=== PATIENT | male | born 1965 | race Caucasian/White ===

== ENCOUNTER 2020-07-17 06:59 | Outpatient (REF) | payer OTHER, SELFPAY ==
[2020-07-17 08:52] LABS: Alanine Aminotransferase 37 U/L (0-40); Albumin Level 4.6 g/dL (3.5-5.0); Alkaline Phosphatase 58 U/L (39-117); Anion Gap 13 (12-20); Aspartate Amino Transferase 30 U/L (5-37); Bilirubin Total 0.9 mg/dL (0.0-1.0); Blood Urea Nitrogen 14 mg/dL (9-16); Calcium 9.7 mg/dL (8.4-10.2); Carbon Dioxide 27 mmol/L (22-29); Chloride 103 mmol/L (96-108); Cholesterol 191 mg/dL; Estimated Glomerular Filt Rate > 60; Glucose Fasting 105 mg/dL (60-99); HDL Cholesterol 53 mg/dL; LDL Cholesterol Calculated 91 mg/dl; Potassium 4.2 mmol/L (3.3-5.1); Sodium 139 mmol/L (135-145); Total Protein 7.2 g/dL (6.5-8.0); Triglycerides 238 mg/dL
== END 2020-07-17 07:00 | disposition home or self-care (01) ==
LOC: HO.LAB 06:59
PROVIDERS: PCP Family Medicine; Visit Provider Family Medicine
DX: E78.2 Mixed hyperlipidemia (principal)
CPT/HCPCS: 36415; 80053; 80061

== ENCOUNTER → 2020-10-25 07:34 | Outpatient (BNVA) | payer SELFPAY | PROVIDERS: PCP Family Medicine; Visit Provider Internal Medicine | DX: Z02.79 Encounter for issue of other medical certificate (principal) ==

== ENCOUNTER 2021-01-17 08:51 | Outpatient (REF) | payer OTHER, SELFPAY ==
[2021-01-17 12:26] LABS: Alanine Aminotransferase 30 U/L (0-40); Albumin Level 4.5 g/dL (3.5-5.0); Alkaline Phosphatase 57 U/L (39-117); Anion Gap 14 (12-20); Aspartate Amino Transferase 22 U/L (5-37); Bilirubin Total 0.8 mg/dL (0.0-1.0); Blood Urea Nitrogen 17 mg/dL (9-16); Calcium 9.5 mg/dL (8.4-10.2); Carbon Dioxide 25 mmol/L (22-29); Chloride 104 mmol/L (96-108); Cholesterol 172 mg/dL; Estimated Glomerular Filt Rate > 60; Glucose Fasting 115 mg/dL (60-99); HDL Cholesterol 46 mg/dL; LDL Cholesterol Calculated 98 mg/dl; Potassium 4.8 mmol/L (3.3-5.1); Sodium 138 mmol/L (135-145); Total Protein 7.1 g/dL (6.5-8.0); Triglycerides 142 mg/dL
== END 2021-01-17 08:52 | disposition home or self-care (01) ==
LOC: HO.HMGCLR 08:51
PROVIDERS: PCP Family Medicine; Visit Provider Family Medicine
DX: I10 Essential (primary) hypertension (principal)
CPT/HCPCS: 36415; 80053; 80061

== ENCOUNTER 2021-04-23 06:59 | Outpatient (REF) | payer OTHER, SELFPAY ==
[2021-04-23 12:04] LABS: Alanine Aminotransferase 37 U/L (0-40); Albumin Level 4.1 g/dL (3.5-5.0); Alkaline Phosphatase 60 U/L (39-117); Anion Gap 8 (12-20); Aspartate Amino Transferase 22 U/L (5-37); Bilirubin Total 0.5 mg/dL (0.0-1.0); Blood Urea Nitrogen 13 mg/dL (9-16); Calcium 9.2 mg/dL (8.4-10.2); Carbon Dioxide 29 mmol/L (22-29); Chloride 106 mmol/L (96-108); Cholesterol 157 mg/dL; Estimated Glomerular Filt Rate > 60; Glucose Random 115 mg/dL (60-115); HDL Cholesterol 41 mg/dL; LDL Cholesterol Calculated 82 mg/dl; Potassium 5.2 mmol/L (3.3-5.1); Sodium 138 mmol/L (135-145); Total Protein 6.7 g/dL (6.5-8.0); Triglycerides 171 mg/dL
== END 2021-04-23 07:00 | disposition home or self-care (01) ==
LOC: HO.HMGCLDS 06:59
PROVIDERS: Visit Provider Family Medicine
DX: I10 Essential (primary) hypertension (principal)
CPT/HCPCS: 36415; 80053; 80061

== ENCOUNTER 2021-06-20 07:00 | Outpatient (RCR) | payer OTHER, SELFPAY | END 2021-06-20 11:59 | disposition home or self-care (01) | LOC: HO.PTCHIC 07:00 | PROVIDERS: PCP Family Medicine; Visit Provider Physician Assistant | DX: M54.2 Cervicalgia (principal) | CPT/HCPCS: 97012; 97110; 97140; 97161 ==

== ENCOUNTER 2021-09-12 07:11 | Outpatient (REF) | payer OTHER, SELFPAY ==
[2021-09-12 11:08] LABS: MANUAL DIFF FLAG NO
[2021-09-12 11:16] LABS: Basophils Percent Auto 0.8 % (0-2); Eosinophils Absolute Auto 0.1 X10*3/uL (0.0-0.4); Eosinophils Percent Auto 1.6 % (0-4); Hematocrit 43.6 % (42.0-52.0); Hemoglobin 14.6 g/dl (14.0-18.0); Imm Gran Abs Auto 0.01 X10*3/uL (0.00-0.03); Imm Gran Pct Auto 0.2 % (0.0-0.4); Lymphocytes Absolute Auto 1.5 X10*3/uL (1.2-4.9); Lymphocytes Percent Auto 28.9 % (20-40); Mean Corpuscular HGB Conc 33.5 g/dl (31.0-36.0); Mean Corpuscular Hemoglobin 30.2 pg (27.0-33.0); Mean Corpuscular Volume 90.1 fL (80.0-98.0); Mean Platelet Volume 9.6 fL (9.4-12.4); Monocytes Absolute Auto 0.6 X10*3/uL (0.1-1.2); Monocytes Percent Auto 11.8 % (2-11); Neutrophils Absolute Auto 2.9 x10*3/uL (2.0-8.3); Neutrophils Percent Auto 56.7 % (45-73); Platelet Count 200 X10*3/uL (160-400); Red Blood Count 4.84 X10*6/uL (4.60-5.80); Red Cell Distribution Width 13.2 % (11.0-16.0); White Blood Count 5.2 X10*3/uL (4.8-10.8)
[2021-09-12 11:51] LABS: Alanine Aminotransferase 27 U/L (0-40); Albumin Level 4.4 g/dL (3.5-5.0); Alkaline Phosphatase 64 U/L (39-117); Anion Gap 13 (12-20); Aspartate Amino Transferase 22 U/L (5-37); Bilirubin Total 0.6 mg/dL (0.0-1.0); Blood Urea Nitrogen 20 mg/dL (9-16); Carbon Dioxide 25 mmol/L (22-29); Chloride 104 mmol/L (96-108); Cholesterol 192 mg/dL; Estimated Glomerular Filt Rate > 60; Glucose Random 144 mg/dL (60-115); HDL Cholesterol 50 mg/dL; LDL Cholesterol Calculated 116 mg/dl; Sodium 137 mmol/L (135-145); Triglycerides 132 mg/dL
[2021-09-12 12:00] LABS: Thyroid Stimulating Hormone 1.03 uIU/mL (0.32-4.0)
== END 2021-09-12 07:12 | disposition home or self-care (01) ==
LOC: HO.HMGCLDS 07:11
PROVIDERS: Visit Provider Family Medicine
DX: E78.2 Mixed hyperlipidemia (principal)
CPT/HCPCS: 36415; 80053; 80061; 84443; 85025

== ENCOUNTER → 2021-10-13 07:32 | Outpatient (BNVA) | payer SELFPAY | PROVIDERS: PCP Family Medicine; Visit Provider Internal Medicine | DX: Z02.79 Encounter for issue of other medical certificate (principal) ==

== ENCOUNTER 2021-11-07 07:26 | Day surgery (SDC) | payer OTHER, SELFPAY ==
--- NOTE | 2021-11-06 13:00 | HO.ANESPROP2 ---
Documented by User: Dia Looney NP 11/06/21 13:07 HPI - Anesthesia Eval Consult details Narrative: 56yo M for Upper Endoscopy Seen in Walk-In for sore throat 11/05/21. Home Covid negative. Rapid Strep negative. No fever. No cough. PMFSH Past Medical History Medical History BPH (benign prostatic hyperplasia) Elevated cholesterol GERD (gastroesophageal reflux disease) HTN (hypertension) Interstitial cystitis Surgical History Surgical History H/O rotator cuff surgery History of nasal surgery Hx of colonoscopy Hx of cystoscopy Hx of knee surgery Social History Social History Patient Tobacco Use Status: Former Tobacco user Are you DNR?: No Advance Directives: No Advance Directives Information Provided: Yes Recently lost weight without trying: No Nutrition Risks: No Nutritional Risk Meds Allergies Allergy/AdvReac Type Severity Reaction Status Date / Time CRUSTACEANS Allergy Intermediate SWELLING/DI Uncoded 11/05/21 08:18 FF.BREATHIN G Pt denies any drug allergies Allergy Unknown Unknown Uncoded 11/05/21 08:18 shrimp/crab/lobster Allergy Unknown facial Uncoded 11/05/21 08:18 swelling Home Medications Medication Instructions Recorded Confirmed Last Taken Type amlodipine 5 mg tablet 5 mg PO DAILY 11/05/21 11/07/21 History atenolol 50 mg tablet 50 mg PO DAILY 11/05/21 11/07/21 History atorvastatin 40 mg tablet 40 mg PO DAILY 11/05/21 Unknown History hwtdwqklfz-rqowwekcfzkoz-minputqy 1 tab PO Q4H PRN 11/05/21 Unknown History 50 mg-325 mg-40 mg tablet cyclobenzaprine 10 mg tablet 10 mg PO BEDTIME 11/05/21 Unknown History epinephrine 0.3 mg/0.3 mL IM allergies 11/05/21 Unknown History injection, auto-injector hydrocortisone valerate 0.2 % topical 11/05/21 Unknown History topical ointment lisinopril 5 mg tablet 5 mg PO BEDTIME 11/05/21 Unknown History omeprazole 20 mg capsule,delayed 20 mg PO BID 11/05/21 Unknown History release tamsulosin 0.4 mg capsule 0.4 mg PO DAILY 11/05/21 Unknown History Exam Exam Date and Time: November 06, 2021 1300 Pertinent Lab Results Pertinent Lab Results: Laboratory Tests 09/12/21 09/12/21 07:30 07:30 WBC 5.2 Hgb 14.6 Hct 43.6 Plt Count 200 Sodium 137 Potassium 5.0 Chloride 104 Carbon Dioxide 25 BUN 20 H D Creatinine 0.99 Assessment and Plan Assessment Anesthesia Assessment: Chart Reviewed Documented by User: Elizabeth Vargas MD 11/07/21 08:39 PMF Past Medical History Medical History BPH (benign prostatic hyperplasia) Elevated cholesterol GERD (gastroesophageal reflux disease) HTN (hypertension) Interstitial cystitis Surgical History Surgical History H/O rotator cuff surgery History of nasal surgery Hx of colonoscopy Hx of cystoscopy Hx of knee surgery History of Problems with Anesthesia: No Social History Social History Patient Tobacco Use Status: Former Tobacco user Are you DNR?: No Advance Directives: No Advance Directives Information Provided: Yes Recently lost weight without trying: No Nutrition Risks: No Nutritional Risk Meds Allergies Allergy/AdvReac Type Severity Reaction Status Date / Time CRUSTACEANS Allergy Intermediate SWELLING/DI Uncoded 11/05/21 08:18 FF.BREATHIN G Pt denies any drug allergies Allergy Unknown Unknown Uncoded 11/05/21 08:18 shrimp/crab/lobster Allergy Unknown facial Uncoded 11/05/21 08:18 swelling Home Medications Medication Instructions Recorded Confirmed Last Taken Type amlodipine 5 mg tablet 5 mg PO DAILY 11/05/21 11/07/21 History atenolol 50 mg tablet 50 mg PO DAILY 11/05/21 11/07/21 History atorvastatin 40 mg tablet 40 mg PO DAILY 11/05/21 Unknown History lewmhcggpx-jbtlyhwigwgoh-eztdnvug 1 tab PO Q4H PRN 11/05/21 Unknown History 50 mg-325 mg-40 mg tablet cyclobenzaprine 10 mg tablet 10 mg PO BEDTIME 11/05/21 Unknown History epinephrine 0.3 mg/0.3 mL IM allergies 11/05/21 Unknown History injection, auto-injector hydrocortisone valerate 0.2 % topical 11/05/21 Unknown History topical ointment lisinopril 5 mg tablet 5 mg PO BEDTIME 11/05/21 Unknown History omeprazole 20 mg capsule,delayed 20 mg PO BID 11/05/21 Unknown History release tamsulosin 0.4 mg capsule 0.4 mg PO DAILY 11/05/21 Unknown History Exam Airway Mallampati Class: III (Temporary crown right upper) TM Dist: >3cm Neck ROM: Full Loose/Missing/Broken Teeth: No Heart: RRR Lungs: CTA Assessment and Plan Assessment Anesthesia Assessment: Anesthesia Plan Discussed Final Anesthetic Review History of Problems with Anesthesia: No NPO: Yes ASA Class: II Final Preanesthetic Review: Meds/Allgs Chart Reviewed, Consent Obtained/Reviewed and Anes Risks/Benef Reviewed Patient Risk: Low Procedure Risk: Intermediate Anesthetic Plan Anesthetic Plan: MAC: Disposition: Standard PACU
[2021-11-07 06:45] VITALS: BMI 30.2
[2021-11-07 07:37] VITALS: BP 168/93; PULSE 63; RESP 18; TEMP 36.8; O2SAT 97
[2021-11-07] MEDS: Lactated Ringers 1,000 ML 100 ML IVCONT (08:02)
--- NOTE | 2021-11-07 09:01 | PM.OP ---
Brief Operative Note Date of Service: 11/07/21 Pre-op diagnosis: GERD Post-op diagnosis: other (Hiatal hernia) Procedure: EGD with biopsies Surgeon: Mayo Roche Anesthesia: MAC Was an Slot Shift Supervisor used for this Procedure?: No Estimated blood loss (mL): 2.0 Pathology: other (A. EG Junction at 38cm) Condition: stable Disposition: PACU
[2021-11-07 09:02] VITALS: BP 96/51; PULSE 63; RESP 10; TEMP 36.2; O2SAT 99
[2021-11-07 09:17] VITALS: BP 104/58; PULSE 74; RESP 16; TEMP 36.2; O2SAT 96
--- NOTE | 2021-11-07 21:58 | OP_ITS ---
SURGEON: Mayo Roche MD INDICATIONS: The patient presents for evaluation of chronic gastroesophageal reflux. Full consent has been obtained from him for this, including risks of bleeding and perforation. PREOPERATIVE DIAGNOSIS: POSTOPERATIVE DIAGNOSIS: Gastroesophageal reflux, small hiatal hernia. PROCEDURE PERFORMED: Esophagogastroduodenoscopy with biopsies. ESTIMATED BLOOD LOSS: COMPLICATIONS: ANESTHESIA: Monitored anesthesia care. ASSISTANTS: SPECIMENS: PREOPERATIVE DIAGNOSES: Gastroesophageal reflux. DESCRIPTION OF PROCEDURE: The patient was placed in the left lateral decubitus position. The Olympus video gastroscope was passed in the posterior oropharynx and upper esophagus under direct vision. The scope was passed slowly to the distal esophagus. The gastroesophageal junction appeared at 38 cm. There was a very minimal irregularity consistent with reflux but no evidence of any esophagitis nor any definitive evidence of Acevedo mucosa. There was a small hiatal hernia. The scope was advanced to the pylorus and the duodenum was cannulated to the descending portion. The duodenum including the bulb appeared normal without mass or ulceration. The scope was withdrawn back in the stomach. The gastric antrum and body appeared normal with good peristalsis. The scope was retroflexed visualizing the proximal stomach carefully, which appeared normal, without any sign of mass or ulceration. Scope was straightened and withdrawn back to the esophagus. Biopsies were obtained at the EG junction at 38 cm. Proximal to this, the esophageal mucosa appeared normal. The scope was withdrawn from the patient he tolerated the procedure well and was returned to the recovery area in stable condition. IMPRESSION: Small hiatal hernia, gastroesophageal reflux. PLAN: The results of the biopsies will be checked. At this point, I have advised him to continue his daily omeprazole as he reports that is working well for his reflux symptoms. He would otherwise see me on a p.r.n. basis but will be due for his next screening colonoscopy in 3 years. He will see me otherwise on a p.r.n. basis. This has been discussed with his . MD ERA Sparks/SADIQ / [id number]
== END 2021-11-07 09:55 | disposition home or self-care (01) ==
PROVIDERS: Visit Provider Internal Medicine
PROC: 0DJ08ZZ Inspection of Upper Intestinal Tract, Via Natural or Artificial Opening Endoscopic (ICD-10-PCS; CPT 43235; principal; 2021-11-07 08:30)
DX: K21.9 Gastro-esophageal reflux disease without esophagitis (principal); K44.9 Diaphragmatic hernia without obstruction or gangrene; I10 Essential (primary) hypertension; E78.5 Hyperlipidemia, unspecified; N40.0 Benign prostatic hyperplasia without lower urinary tract symptoms; N30.10 Interstitial cystitis (chronic) without hematuria; Z79.899 Other long term (current) drug therapy; Z87.891 Personal history of nicotine dependence
CPT/HCPCS: 43239; 88305; J3010

== ENCOUNTER 2021-11-21 07:54 | Outpatient (REF) | payer OTHER, SELFPAY ==
--- NOTE | 2021-11-28 08:56 | MHC.AU.ANO ---
Adult Audiological Evaluation Date of Visit: 11/21/21 Needle Loom Setter Used: Not Applicable Reason for Appointment: Gautam was referred for an audiologic evaluation due to increased hearing difficulties Does patient feel they have a hearing loss?: Yes If Yes, Which Ear?: Both Ears When Was Hearing Difficulty First Noticed?: Hearing change has been gradual for several years. Has hearing been tested previously?: Yes Previous Hearing Test Results: [facility] during employment. Results are not available for review. Hearing Handicap Inventory: HHIE SCORE: 16 Based on HHIE score, patient has: Mild to moderate perceived hearing handicap Ear History: Bothersome Tinnitus/Ringing/Noises in Ears: Both Ears Ear used on the phone: Left Ear Blocked/Full Sensation in Ear(s): Left ear greater than right History of occupational noise exposure?: Yes: Work related for over 40 years History: No Medical History: Medical History: Headache, High Blood Pressure, Migraines Medical History: Chronic pain and history of dizziness treated with Vestibular Rehabilitation Allergies: Shellfish Medication List: Atorvastatin, Amlodipine, Butalital-acetaminophen, Tamsulosin, Lisinopril, Omprazole, Atenolol Otoscopy: Right Ear: Unremarkable Left Ear: Unremarkable Tympanometry: Tympanometry performed due to: To assess integrity of the middle ear system Right Ear: Normal Middle Ear System (Type A) Left Ear: Normal Middle Ear System (Type A) Hearing Evaluation: Transducer(s) Used: Insert Earphones Bone Conduction Method: Conventional Audiometry Stimuli Used: Pure Tones Right Ear: Description of Hearing: Normal hearing thresholds 250-2000 Hz dropping to a moderate sensorineural hearing loss 3000 Hz, rising to a mild loss at 8000 Hz. A Speech Java Front End Web Developer Threshold of 10 dB HL obtained with 100% speech discrimination at 50 dB HL. Left Ear: Description of Hearing: Normal hearing thresholds 250-2000 Hz dropping to a moderate sensorineural hearing loss 3000 Hz, rising to a normal hearing threshold at 8000 Hz. A Speech Java Front End Web Developer Thresholds of 10 dB HL obtained with 92% speech understanding at 50 dB HL. Interpretation of Results: This moderate high frequency hearing loss occurs in the frequency range of many consonant sounds of speech which often will cause Gautam to have trouble distinguishing between similar sounding words. This difficulty increases when background noise is present or a speaker is at a distance/not facing him. This hearing loss is also likely related to Gautam's perception of tinnitus. The various theories of tinnitus and management strategies were discussed. Possible trial period with hearing aids was discusses; however, Gautam is not ready at this time to pursue amplification. Recommendations: Audiological re-evaluation in one year. Will send a reminder card. Hearing protection should be used when around loud noise. Diagnosis: Primary Diagnosis: H90.3 Bilateral Sensorineural Hearing Loss Secondary Diagnosis: H93.13 Tinnitus, Bilateral Services Performed: Comprehensive Audiological Evaluation (CPT 64491) Tympanometry (CPT 99852) Signature: Provider: Ron Ardon, CCC-A
== END 2021-11-21 07:55 | disposition home or self-care (01) ==
LOC: HO.SH 07:54
PROVIDERS: Visit Provider Family Medicine
DX: Z01.118 Encounter for examination of ears and hearing with other abnormal findings (principal); H90.3 Sensorineural hearing loss, bilateral; H93.13 Tinnitus, bilateral
CPT/HCPCS: 92557; 92567

== ENCOUNTER → 2021-12-01 14:00 | Outpatient (BNVA) | payer OTHER, SELFPAY | PROVIDERS: PCP Family Medicine; Visit Provider Orthopaedic Surgery | DX: M75.41 Impingement syndrome of right shoulder (principal) | CPT/HCPCS: 20610; J1100 ==

== ENCOUNTER 2021-12-29 11:43 | Outpatient (REF) | payer OTHER, SELFPAY ==
--- NOTE | ~2021-12-29 | XR_ITS ---
EXAMINATION: XR CHEST CLINICAL INFORMATION: Cough COMPARISON: None TECHNIQUE: 2 views of the chest were obtained. FINDINGS: Cardiac silhouette is normal in size. The lungs are well aerated. There is no lobar consolidation. No pleural effusion or pneumothorax. Mild degenerative changes of the spine. Postsurgical changes of both shoulders. XR/XR chest 2V IMPRESSION: No acute pulmonary pathology.
== END 2021-12-29 11:44 | disposition home or self-care (01) ==
LOC: HO.HMGCX 11:43
PROVIDERS: PCP Family Medicine; Visit Provider Internal Medicine
DX: R05.9 Cough, unspecified (principal)
CPT/HCPCS: 71046

== ENCOUNTER → 2022-02-13 14:54 | Outpatient (BNVA) | payer OTHER, SELFPAY | PROVIDERS: PCP Family Medicine; Visit Provider Nurse Practitioner Family | DX: N30.10 Interstitial cystitis (chronic) without hematuria (principal) ==

== ENCOUNTER 2022-03-03 08:27 | Outpatient (REF) | payer OTHER, SELFPAY ==
--- NOTE | ~2022-03-03 | US_ITS ---
EXAMINATION: US RETROPERITONEAL COMPLETE (RENAL) CLINICAL INFORMATION: Interstitial cystitis (chronic) without hematuria. COMPARISON: None TECHNIQUE: Real-time imaging of the kidneys and bladder. FINDINGS: RIGHT KIDNEY: 10.8 x 5.1 x 5.8 cm (SAG x AP x TRV). The kidney is normal in size, contour, and echogenicity. Renal cortical thickness is normal. No calculi or focal parenchymal lesions. No hydronephrosis. LEFT KIDNEY: 10.6 x 5.6 x 6.6 cm (SAG x AP x TRV). The kidney is normal in size, contour, and echogenicity. Renal cortical thickness is normal. No calculi or focal parenchymal lesions. No hydronephrosis. BLADDER: Well distended and normal. Bilateral ureteral jets are demonstrated. Prevoid bladder volume is 413 mL. Postvoid bladder volume is 45.6 mL. ADDITIONAL FINDINGS: The prostate is mildly enlarged measuring 39.3 mL volume. US/US retroperitoneal comp IMPRESSION: Normal renal ultrasound. Small postvoid bladder volume measuring 45.6 mL. Prostate volume is 39.3 mL.
[2022-03-03 12:50] LABS: Cholesterol 179 mg/dL; HDL Cholesterol 48 mg/dL; LDL Cholesterol Calculated 105 mg/dl; Triglycerides 134 mg/dL
[2022-03-03 12:51] LABS: Thyroid Stimulating Hormone 1.12 uIU/mL (0.32-4.0)
[2022-03-03 13:21] LABS: PSA,Total (Free>4and<10) 8.83 ng/mL (0.00-4.00)
[2022-03-05 09:13] LABS: Free Prostate Spec Ag 1.5 ng/mL; Percent Free Prostate Spec Ag 18 % (calc) (>25); Prostate Specific Ag Total 8.2 ng/mL (< OR = 4.0)
== END 2022-03-03 08:28 | disposition home or self-care (01) ==
LOC: HO.HMGCX 08:27
PROVIDERS: PCP Family Medicine; Visit Provider Nurse Practitioner Family
DX: N30.10 Interstitial cystitis (chronic) without hematuria (principal); N40.1 Benign prostatic hyperplasia with lower urinary tract symptoms; E78.2 Mixed hyperlipidemia; Z12.5 Encounter for screening for malignant neoplasm of prostate
CPT/HCPCS: 36415; 76770; 80061; 84153; 84154; 84443

== ENCOUNTER → 2022-03-27 08:47 | Outpatient (BNVA) | payer OTHER, SELFPAY | PROVIDERS: PCP Family Medicine; Visit Provider Nurse Practitioner Family | DX: R97.20 Elevated prostate specific antigen [PSA] (principal); R35.1 Nocturia | CPT/HCPCS: 51798 ==

== ENCOUNTER 2022-03-30 06:48 | Outpatient (REF) | payer OTHER, SELFPAY ==
[2022-03-30 12:33] LABS: Prostate Specific Antigen 7.06 ng/mL (<0.05-4.0)
== END 2022-03-30 06:49 | disposition home or self-care (01) ==
LOC: HO.HMGCLDS 06:48
PROVIDERS: Visit Provider Nurse Practitioner Family
DX: Z12.5 Encounter for screening for malignant neoplasm of prostate (principal); R97.20 Elevated prostate specific antigen [PSA]
CPT/HCPCS: 36415; 84153

== ENCOUNTER → 2022-04-02 09:44 | Outpatient (BNVA) | payer OTHER, SELFPAY | PROVIDERS: PCP Family Medicine; Visit Provider Nurse Practitioner Family | DX: Z13.89 Encounter for screening for other disorder (principal) ==

== ENCOUNTER 2022-05-14 07:32 | Outpatient (REF) | payer OTHER, SELFPAY ==
[2022-05-14 07:47] VITALS: BP 141/91; PULSE 54; RESP 16; TEMP 36.4; O2SAT 99; BMI 28.7
--- NOTE | 2022-05-14 08:45 | W.PM.OPN ---
Operative Note Operative Note Date of Service: 05/14/22 Narrative: Preoperative diagnosis: Elevated PSA Postoperative diagnosis: Elevated PSA - 8.2 18% Procedure: 1. transrectal ultrasound measurement of prostate 2. transrectal ultrasound-guided pudendal nerve block 3. transrectal ultrasound-guided prostate biopsy 12 core Surgeon: Dr. Mario Enriquez Anesthetic: Local Indications for procedure: Elevated PSA Procedure: After informed consent was verified, the patient was brought into the procedure area and lay left-hand side down on the table. Patient identity confirmed. Perioperative antibiotics confirmed. Safety pause time out performed. DARÍO performed to dilate rectal sphincter Iodine 10cc with Gel was placed per rectum Ultrasound probe was placed per rectum The prostate was measured in 3 dimensions Total volume equals 35 gm No cystic structures were noted No calcifications were noted at the surgical margin The prostate was otherwise homogeneous in nature An ultrasound-guided pudendal nerve block was performed using 10 cc of 1% lidocaine. 8 cc was placed at the base and 2 cc of the apex. A 12 core biopsy was performed with 6 cores each side. Two cores were taken at the apex, mid and base. Cores were spaced between lateral and medial. He tolerated the procedure well. Was able to ambulate to bathroom after 5 minutes. Printed instructions regarding antibiotic use and common side effects such as low-grade temperature, potential infection and bleeding were given Pathology: 12 core prostate biopsy.
[2022-05-14 08:47] VITALS: BP 155/96; PULSE 59; RESP 16; O2SAT 97
== END 2022-05-14 07:33 | disposition home or self-care (01) ==
LOC: HO.MS 07:32
PROVIDERS: PCP Family Medicine; Visit Provider Urology
PROC: (CPT 55700; principal; 2022-05-14 08:00)
DX: D07.5 Carcinoma in situ of prostate (principal); R97.20 Elevated prostate specific antigen [PSA]
CPT/HCPCS: 55700; 76942; 88305; 88344

== ENCOUNTER → 2022-05-21 09:40 | Outpatient (BNVA) | payer OTHER, SELFPAY | PROVIDERS: PCP Family Medicine; Visit Provider Urology | DX: Z13.89 Encounter for screening for other disorder (principal) ==

== ENCOUNTER → 2022-06-16 13:22 | Outpatient (BNVA) | payer OTHER, SELFPAY | PROVIDERS: PCP Family Medicine; Visit Provider Urology | DX: Z13.89 Encounter for screening for other disorder (principal) ==

== ENCOUNTER → 2022-10-05 14:29 | Outpatient (BNVA) | payer SELFPAY | PROVIDERS: PCP Family Medicine; Visit Provider Internal Medicine | DX: Z02.79 Encounter for issue of other medical certificate (principal) ==

== ENCOUNTER 2022-10-20 09:45 | Outpatient (AMB) | payer OTHER, SELFPAY ==
--- NOTE | 2022-10-20 09:55 | MHC.OFFVIS ---
Intake Intake Visit Reasons: 6w/post op follow up Intake Note: Patient is present for Follow Up Urology Med: None (Patient is no longer on Finasteride, Bicalutamide) Antibiotic Allergy: None Blood Thinner: None Pharmacy: [facility] PVR:0 Allergies CRUSTACEANS Allergy (Intermediate, Uncoded 10/20/22 09:59) SWELLING/DIFF.BREATHING shrimp/crab/lobster Allergy (Unknown, Uncoded 10/20/22 09:59) facial swelling HPI HPI Comments History of Present Illness Details Gautam is a pleasant male. He is a patient of Dr. Osorio. He seen for the following urologic conditions - elevated PSA - prostate cancer Six weeks postprocedure Continence returning Happy with current process Genetics performed showing no abnormality PSA today and 6 weeks Will be on 3 month surveillance for 2 years Prostate cancer -grade group 5, high-volume 05/[address] Enriquez 05/07 for PSA 7.1 with free PSA 18% Initial therapy robotic prostatectomy Dr Cow[facility] 09/06 - genetics negative Clinical T1c, TRUS prostate size 35 g Histologic type: Adenocarcinoma, acinar type Manuela score: 9 (4+5) (left base lateral, left base medial, left mid lateral,left mid medial, left apex lateral, and left apex medial), 7 (3+4) (right base medial), 6 (3+3) (right base lateral) Tumor quantitation: Number cores positive: 8 Total number of cores: 15 - % of tissue involved: 44 % - 640/1600 Periprostatic fat inv.: Not identified Seminal vesicle inv.: Not identified Perineural inv.: Present Lymphovascular invasion: Not identified Staging - 06/07 [facility] PET-CT - isolated left side prostate activity - 06/07 MRI - multiple prostate lesions PiRADs 5 with apparent SHERRY to involve neurovascular bundles, no evidence for seminal vesicle involvement PFSH Medical History BPH (benign prostatic hyperplasia) BPH loc w urin obs/LUTS Elevated cholesterol GERD (gastroesophageal reflux disease) HTN (hypertension) Interstitial cystitis Interstitial cystitis Surgical History H/O rotator cuff surgery History of nasal surgery Hx of colonoscopy Hx of cystoscopy Hx of knee surgery Social History Patient Tobacco Use Status: Former Tobacco user Current occupational status: employed 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 Review of Systems Const Denies chills and Denies fever(s) Card Reports no additional complaints and Denies syncope Resp Denies cough GI Denies abdominal pain and Denies heartburn Reports as per HPI and Denies change in libido Neuro Denies syncope Psych Denies change in libido Endo Denies change in libido Physical Exam Const General: cooperative, healthy appearing, comfortable and no acute distress Orientation/consciousness: patient oriented x3 HEENT Face and sinus: Yes normal facial exam Mouth: moist mucous membranes Neck Neck: Yes normal visual inspection, Yes full ROM and Yes trachea midline Chest Chest palpation & inspection: normal inspection of the chest Resp Effort & Inspection: normal respiratory effort, able to speak in complete sentences and no respiratory distress GI Inspection: Yes normal to inspection Back/Spine/Pelvis Cervical Spine: normal cervical lordosis Thoracic/Lumbar Spine: thoracic and lumbar spine normal to inspection Skin General skin exam: no rashes or lesions noted Neuro General: patient oriented x3, gait normal, tone normal and moves all extremities Extrem General: Yes normal to inspection and Yes capillary refill normal Office Procedures Post Void Residual Post Residual Void Post Void Residual (PVR): 0 52243-Enrb Void Residual by ultrasound Results AMB Urinalysis, Automated UA Leukoctes 0 Teo/uL Last Edit by HEATHER Cerda on 10/20/22 10:05 UA Nitrite Negative Last Edit by HEATHER Cerda on 10/20/22 10:05 UA Urobilinogen 0.2 mg/dL Last Edit by HEATHER Cerda on 10/20/22 10:05 UA Protein 0 mg/dL Last Edit by HEATHER Cerda on 10/20/22 10:05 UA pH 5.5 Last Edit by HEATHER Cerda on 10/20/22 10:05 UA Blood 0 Meek/uL Last Edit by HEATHER Cerda on 10/20/22 10:05 UA Specific [place] 1.015 Last Edit by HEATHER Cerda on 10/20/22 10:05 UA Ketone Negative Last Edit by HEATHER Cerda on 10/20/22 10:05 UA Bilirubin 0 mg/dL Last Edit by HEATHER Cerda on 10/20/22 10:05 UA Glucose 0 mg/dL Last Edit by Cheri Eckert, HEATHER on 10/20/22 10:05 Results Reviewed Results Reviewed: Laboratory Last Values Urine pH (Auto) 5.5 10/20/22 10:00 Specific [place] (Auto) 1.015 10/20/22 10:00 Urine Protein (Auto) 0 mg/dL 10/20/22 10:00 Glucose (UA)(Auto) 0 mg/dL 10/20/22 10:00 Urine Ketones (Auto) Negative 10/20/22 10:00 Urine Blood (Auto) 0 Meek/uL 10/20/22 10:00 Urine Nitrite (Auto) Negative 10/20/22 10:00 Urine Bilirubin (Auto) 0 mg/dL 10/20/22 10:00 Urine Urobilinogen (Auto) 0.2 mg/dL 10/20/22 10:00 Leukocyte Esterase (Auto) 0 Teo/uL 10/20/22 10:00 Assessment & Plan Assessment & Plan (1) Prostate cancer: Comment: 05/07 high-grade, high-volume Code(s): C61 - Malignant neoplasm of prostate Plan PSA today and three-month follow-up Orders: Orders AMB Urinalysis Automated Today Z13.9 - Encounter for screening, unspecified AMB Post Void Residual by ultrasound Today N40.1 - Benign prostatic hyperplasia with lower urinary tract symptoms Prostate Specific Antigen Today C61 - Malignant neoplasm of prostate Prostate Specific Antigen 3 Months C61 - Malignant neoplasm of prostate Patient Instructions: Imaging studies, laboratory and physical exam results were discussed and reviewed in detail. No major barriers to patient understanding were identified. An opportunity to ask questions regarding the treatment plan was provided. All questions were answered. The patient expressed understanding and agreement with the above treatment plan. The patient is aware they should contact our office by phone for worsening of their current condition or the appearance of new urologic symptoms. Compliance is encouraged with any medications and followup testing that is ordered. It is a privilege to participate in the urologic care of your patient. If you have any questions or concerns regarding treatment for the above conditions, or other urologic issues, please do not hesitate to contact me. The office telephone contact is [phone]. This note is constructed using voice recognition software. While every effort has been made to ensure accuracy treating plant supervisor errors may have been included. Yours sincerely, Dr Mario Enriquez MD, [facility] - Urology Providers of Expert, Compassionate Care for the Genitourinary System Coding Level of Care Code Est Pt Level 3 (99798) Diagnoses Prostate cancer C61 CPT Codes Post Residual Void - PVR CPT Code: 24879-Ktxz Void Residual by ultrasound ([id number])
== END 2022-10-20 10:43 | disposition home or self-care (01) ==
PROVIDERS: PCP Family Medicine; Visit Provider Urology
DX: C61 Malignant neoplasm of prostate (principal); Z13.9 Encounter for screening, unspecified
CPT/HCPCS: 99213

== ENCOUNTER → 2022-10-20 09:45 | Outpatient (BNVA) | payer SELFPAY | PROVIDERS: PCP Family Medicine; Visit Provider Urology | DX: C61 Malignant neoplasm of prostate (principal); N40.1 Benign prostatic hyperplasia with lower urinary tract symptoms; N13.8 Other obstructive and reflux uropathy | CPT/HCPCS: 51798; 81003 ==

== ENCOUNTER 2022-10-23 07:19 | Outpatient (REF) | payer OTHER, SELFPAY ==
[2022-10-23 12:09] LABS: Prostate Specific Antigen < 0.10 ng/mL (<0.05-4.0)
== END 2022-10-23 07:20 | disposition home or self-care (01) ==
LOC: HO.HMGCLDS 07:19
PROVIDERS: PCP Family Medicine; Visit Provider Urology
DX: Z12.5 Encounter for screening for malignant neoplasm of prostate (principal); C61 Malignant neoplasm of prostate
CPT/HCPCS: 36415; 84153

== ENCOUNTER 2022-12-29 07:16 | Outpatient (REF) | payer OTHER, SELFPAY ==
[2022-12-29 12:05] LABS: Alanine Aminotransferase 30 U/L (0-40); Albumin Level 4.3 g/dL (3.5-5.0); Alkaline Phosphatase 61 U/L (39-117); Anion Gap 11 (12-20); Aspartate Amino Transferase 25 U/L (5-37); Bilirubin Total 0.6 mg/dL (0.0-1.0); Blood Urea Nitrogen 13 mg/dL (9-16); Calcium 9.5 mg/dL (8.4-10.2); Carbon Dioxide 28 mmol/L (22-29); Chloride 102 mmol/L (96-108); Cholesterol 198 mg/dL (<200); Estimated Glomerular Filt Rate > 60; Glucose Random 123 mg/dL (60-115); HDL Cholesterol 47 mg/dL (>40); LDL Cholesterol Calculated 94 mg/dL (<100); Potassium 4.1 mmol/L (3.3-5.1); Sodium 137 mmol/L (135-145); Total Protein 7.1 g/dL (6.5-8.0); Triglycerides 287 mg/dL (<150)
== END 2022-12-29 07:17 | disposition home or self-care (01) ==
LOC: HO.HMGCLDS 07:16
PROVIDERS: PCP Family Medicine; Visit Provider Family Medicine
DX: E78.2 Mixed hyperlipidemia (principal)
CPT/HCPCS: 36415; 80053; 80061

== ENCOUNTER 2023-01-11 12:48 | Outpatient (AMB) | payer OTHER, SELFPAY ==
--- NOTE | 2023-01-11 12:51 | MHC.OFFVIS ---
Intake Intake Visit Reasons: New Prob - Bilateral Hand Numbness & Tingling Intake Note: Gautam is a 57 year old right hand dominant male who presents today for a evaluation of bilateral numbness and tingling. Patient reports a tingling sensation in his thumb,2nd, 3rd and 4th digits of left hand and his 5th and 4th digit in his right hand. He states his left hand is the worse and difficulty sleeping at night. Hx of neck problems/injections, stating arthritis in his neck. He has had an EMG done years ago. Allergies CRUSTACEANS Allergy (Intermediate, Uncoded 01/11/23 12:58) SWELLING/DIFF.BREATHING shrimp/crab/lobster Allergy (Unknown, Uncoded 01/11/23 12:58) facial swelling HPI New Prob - Bilateral Hand Numbness & Tingling HPI Details 57-year-old right hand dominant male who presents in the office today for an evaluation of numbness and tingling in the bilateral hands. He reports having a tingling sensation in the 1st, 2nd, 3rd, and 4th digits on the left hand and the 4th and 5th digits on the right hand. He reports the left hand is worse then the right and causes him greater difficulty. He states he had an EMG years ago. He states he has difficulty sleeping at night. Patient reports a history of neck problems with injections, with arthritis. 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 Review of Systems Const All systems reviewed & are unremarkable except as noted in HPI and below Physical Exam Const General: cooperative and no acute distress Orientation/consciousness: patient oriented x3 Resp Effort & Inspection: normal respiratory effort and able to speak in complete sentences Cardio Peripheral pulses: Peripheral pulses 2+ throughout Skin General skin exam: no rashes or lesions noted Neuro General: patient oriented x3 Extrem Other: Bilateral hands: Normal to inspection. No ecchymosis, erythema, or edema. Able to perform full finger flexion, extension, abduction, adduction, finger cross, okay sign, and thumbs up without deficit. Able to make a closed fist. Positive Tinel?s at the carpal and cubital tunnel. Capillary refill is brisk. Radial pulse intact. Left is worse than the right for symptoms. Assessment & Plan Assessment & Plan (1) Numbness and tingling of left upper extremity: Code(s): R20.0 - Anesthesia of skin; R20.2 - Paresthesia of skin (2) Numbness and tingling of right upper extremity: Code(s): R20.0 - Anesthesia of skin; R20.2 - Paresthesia of skin (3) Right carpal tunnel syndrome: Code(s): G56.01 - Carpal tunnel syndrome, right upper limb (4) Left carpal tunnel syndrome: Code(s): G56.02 - Carpal tunnel syndrome, left upper limb Plan Mr. Pearson is a 57-year-old right hand dominant male who presents in the office today for an evaluation of numbness and tingling in the bilateral hands. He reports having a tingling sensation in the 1st, 2nd, 3rd, and 4th digits on the left hand and the 4th and 5th digits on the right hand. He reports the left hand is worse then the right and causes him greater difficulty. He states he had an EMG years ago. He states he has difficulty sleeping at night. Patient reports a history of neck problems with injections, with arthritis. 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 The patient will be referred for an EMG with Dr. Cruz to further evaluate the bilateral hands. Follow up will be after the EMG is obtained with either Dr. Cruz or Dr. London depending on where nerve compression is located, or sooner if needed. Orders: Orders NE electromyogram (EMG) Today G56.01 - Carpal tunnel syndrome, right upper limb, G56.02 - Carpal tunnel syndrome, left upper limb, R20.0 - Anesthesia of skin, R20.2 - Paresthesia of skin Patient Instructions: Scribed for Aishwarya Mccallum PA-C by Iva Rodeen, medical officer psychiatry, on 01/11/2023 at 12:50 pm, EST. Coding Level of Care Code New Pt Level 4 (31344) Diagnoses Numbness and tingling of left upper extremity R20.0; R20.2 Numbness and tingling of right upper extremity R20.0; R20.2 Right carpal tunnel syndrome G56.01 Left carpal tunnel syndrome G56.02
== END 2023-01-11 13:29 | disposition home or self-care (01) ==
PROVIDERS: PCP Family Medicine; Visit Provider Physician Assistant
DX: R20.0 Anesthesia of skin (principal); R20.2 Paresthesia of skin; G56.03 Carpal tunnel syndrome, bilateral upper limbs
CPT/HCPCS: 99203

== ENCOUNTER → 2023-01-11 12:48 | Outpatient (BNVA) | payer OTHER, SELFPAY | PROVIDERS: PCP Family Medicine; Visit Provider Physician Assistant ==

== ENCOUNTER 2023-01-20 07:32 | Outpatient (REF) | payer OTHER, SELFPAY ==
[2023-01-20 12:06] LABS: Prostate Specific Antigen < 0.10 ng/mL (<0.05-4.0)
== END 2023-01-20 07:33 | disposition home or self-care (01) ==
LOC: HO.HMGCLDS 07:32
PROVIDERS: PCP Family Medicine; Visit Provider Urology
DX: Z12.5 Encounter for screening for malignant neoplasm of prostate (principal); C61 Malignant neoplasm of prostate
CPT/HCPCS: 36415; 84153

== ENCOUNTER 2023-01-27 08:37 | Outpatient (AMB) | payer OTHER, SELFPAY ==
--- NOTE | 2023-01-27 08:38 | A.OFFVIS_ITS ---
Intake Intake Visit Reasons: 3M PSA(set) Intake Note: Patient is Present for Telephone Follow Up PSA Urology Med: Patient is currently out of Tadalafil Antibiotic Allergy: None Blood Thinner: None Patient states he will like to discuss other options for Medications similar to Tadalafil Allergies CRUSTACEANS Allergy (Intermediate, Uncoded 01/27/23 08:40) SWELLING/DIFF.BREATHING shrimp/crab/lobster Allergy (Unknown, Uncoded 01/27/23 08:40) facial swelling Medication List - Last Reconciled 01/27/23 by Mario Enriquez MD amlodipine 5 mg PO DAILY atenolol 50 mg PO DAILY atorvastatin 40 mg PO DAILY [id number]-oiemsbkdnnzob-isvd 50-325-40 mg 1 tab PO Q4H PRN cyclobenzaprine 10 mg PO BEDTIME epinephrine IM hydrocortisone valerate 0.2% topical lisinopril 10 mg PO DAILY omeprazole 20 mg PO BID tadalafil (Cialis) 5 mg PO DAILY 90 days HPI HPI Comments History of Present Illness Details Gautam is a pleasant male. He is a patient of Dr. Higuera. He seen for the following urologic conditions - elevated PSA - prostate cancer Telemedicine Evaluation 15 min Consultation Blowtorch Jose M Video attempted Happy with confidence this point in time Occasional leakage with activity Uses depends which he finds helps with confidence Has started to have some erectile activity. Continues to combination daily Cialis and vacuum pump Discussed injection therapy and use of pump with constriction ring Emphasized that use of Cialis helps minimize penile scarring during the post procedure at time frame Continue check PSA every 3 months PSA - 02/06 <0.1 Prostate cancer -grade group 5, high-volume 05/07 - [facility] 09/[address] Enriquez 05/07 for PSA 7.1 with free PSA 18% Initial therapy robotic prostatectomy Dr Cowart [facility] 09/06 - genetics negative Clinical T1c, TRUS prostate size 35 g Histologic type: Adenocarcinoma, acinar type Manuela score: 9 (4+5) (left base lateral, left base medial, left mid lateral,left mid medial, left apex lateral, and left apex medial), 7 (3+4) (right base medial), 6 (3+3) (right base lateral) Tumor quantitation: Number cores positive: 8 Total number of cores: 15 - % of tissue involved: 44 % - 640/1600 Periprostatic fat inv.: Not identified Seminal vesicle inv.: Not identified Perineural inv.: Present Lymphovascular invasion: Not identified Staging - 06/07 [facility] PET-CT - isolated left side prostate activity - 06/07 MRI - multiple prostate lesions P iRADs 5 with apparent SHERRY to involve neurovascular bundles, no evidence for seminal vesicle involvement PFSH Medical History Interstitial cystitis BPH loc w urin obs/LUTS Interstitial cystitis BPH (benign prostatic hyperplasia) GERD (gastroesophageal reflux disease) Elevated cholesterol HTN (hypertension) Surgical History Hx of knee surgery History of nasal surgery H/O rotator cuff surgery Hx of cystoscopy Hx of colonoscopy Social History Patient Tobacco Use Status: Former Tobacco user Current occupational status: employed 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 Review of Systems Const All systems reviewed & are unremarkable except as noted in HPI and below Reports no additional complaints Resp Reports no additional complaints GI Reports no additional complaints Reports as per HPI Musc Reports no additional complaints Physical Exam Telemedicine evaluation Appropriate responses Regular breathing rate and rhythm HEENT Head: Yes normal to inspection Ears: hearing grossly normal bilaterally Eyes General: appearance normal, both eyes and all related structures Neck Neck: Yes normal visual inspection Chest Chest palpation & inspection: normal inspection of the chest Resp Effort & Inspection: normal respiratory effort and able to speak in complete s entences Assessment & Plan Assessment & Plan (1) Prostate cancer: Comment: 05/07 high-grade, high-volume Code(s): C61 - Malignant neoplasm of prostate Plan Three month follow-up PSA office Orders: Orders Prostate Specific Antigen 3 Months C61 - Malignant neoplasm of prostate Medications: Refilled tadalafil (Cialis) 5 mg PO DAILY 90 days 90 tabs 1RF Patient Instructions: Imaging studies, laboratory and physical exam results were discussed and reviewed in detail. No major barriers to patient understanding were identified. An opportunity to ask questions regarding the treatment plan was provided. All questions were answered. The patient expressed understanding and agreement with the above treatment plan. The patient is aware they should contact our office by phone for worsening of their current condition or the appearance of new urologic symptoms. Compliance is encouraged with any medications and followup testing that is ordered. It is a privilege to participate in the urologic care of your patient. If you have any questions or concerns regarding treatment for the above conditions, or other urologic issues, please do not hesitate to contact me. The office telephone contact is [phone]. This note is constructed using voice recognition software. While every effort has been made to ensure accuracy shoeblack errors may have been included. Yours sincerely, Dr Mario Enriquez MD, [facility] - Urology Providers of Expert, Compassionate Care for the Genitourinary System Telehealth Telehealth Location of provider rendering services: practice address Location of patient: address on file Patient Identification confirmed using: Name, : Yes Telehealth method: voice only Patient verbally consented to treatment: Yes Patient verbally consented to billing insurance company: Yes Patient informed of any privacy concerns related to visit: Yes Coding Level of Care Code Tele Est Pt Level 3 (06592) Diagnoses Prostate cancer C61
== END 2023-01-27 10:03 | disposition home or self-care (01) ==
LOC: HO.HUSH 08:37
PROVIDERS: PCP Family Medicine; Visit Provider Urology
DX: C61 Malignant neoplasm of prostate (principal)
CPT/HCPCS: 99442

== ENCOUNTER → 2023-01-27 08:37 | Outpatient (BNVA) | payer OTHER, SELFPAY | PROVIDERS: PCP Family Medicine; Visit Provider Urology ==

== ENCOUNTER 2023-02-02 10:01 | Outpatient (REF) | payer OTHER, SELFPAY | END 2023-02-02 10:02 | disposition home or self-care (01) | LOC: HO.HOSX 10:01 | PROVIDERS: Visit Provider Physician Assistant | DX: M19.071 Primary osteoarthritis, right ankle and foot (principal) | CPT/HCPCS: 73610 ==

== ENCOUNTER 2023-02-02 10:48 | Outpatient (AMB) | payer OTHER, SELFPAY ==
--- NOTE | 2023-02-02 10:55 | A.OFFVIS_ITS ---
Intake Vital Signs 02/02/23 10:56 Height 5 ft 10 in Weight 200 lb BMI 28.7 Intake Visit Reasons: Newprob-Right ankle eval Intake Note: Gautam is a 58 year old male who presents today for a evaluation of his right ankle pain. Patient reports off and on pain for many years. He states that his has a history of twisting his ankle easily. No previous treatment. Allergies CRUSTACEANS Allergy (Intermediate, Uncoded 01/27/23 08:40) SWELLING/DIFF.BREATHING shrimp/crab/lobster Allergy (Unknown, Uncoded 01/27/23 08:40) facial swelling HPI Newprob-Right ankle eval HPI Details 58-year-old right hand dominant male who presents in the office today for an evaluation of right ankle pain. The patient reports intermittent pain for june years. He states he has a history of twisting his ankle easily. He denies any prior treatment. 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 Review of Systems Const All systems reviewed & are unremarkable except as noted in HPI and below Physical Exam Vital Signs: BMI result Body Mass Index 28.7 Const General: cooperative, healthy appearing and no acute distress Resp Effort & Inspection: normal respiratory effort and able to speak in complete sentences Cardio Rate: regular rate Peripheral pulses: Peripheral pulses 2+ throughout GI Palpation (GI): Soft to palpation Skin Lesions: no lesions Rashes: no rashes Extrem Other: Right ankle: Normal to inspection. No ecchymosis, erythema, or edema. Full ROM in all planes. NVI. Assessment & Plan Assessment & Plan (1) Osteoarthritis of right ankle: Code(s): M19.071 - Primary osteoarthritis, right ankle and foot Qualifiers: Osteoarthritis type: unspecified Qualified Code(s): M19.071 - Primary osteoarthritis, right ankle and foot Plan Mr. Pearson is a 58-year-old right hand dominant male who presents in the office today for an evaluation of right ankle pain. The patient reports intermittent pain for june years. He states he has a history of twisting his ankle easily. He denies any prior treatment. I discussed with the patient that this is an arthritis flare up, which he understands, and is consistent with his symptoms. He reports intermittent pain depending on activities. I recommend for arthritis management with Tylenol, ib uprofen, ice, rest, elevation and activity modification. We discuss him being a canidate for cortisone injections. Should he wish to move forward with this he will call the office. Follow up will be PRN, or sooner if needed. X-rays of the right ankle which were obtained while in the office today and were reviewed by me, Aishwarya Mccallum PA-C, revealed significant right ankle osteoarthritis. Orders: Orders XR ankle RT min 3V Today M25.579 - Pain in unspecified ankle and joints of unspecified foot Patient Instructions: Scribed for Aishwarya Mccallum PA-C by Iva Rand director of medical review, on 02/02/2023 at 11:03 am, EST. Coding Level of Care Code Est Pt Level 3 (69916) Diagnoses Osteoarthritis of right ankle, unspecified osteoarthritis type M19.071 Osteoarthritis type: unspecified
[2023-02-02 10:56] VITALS: BMI 28.7
== END 2023-02-02 11:20 | disposition home or self-care (01) ==
PROVIDERS: PCP Family Medicine; Visit Provider Physician Assistant
DX: M19.071 Primary osteoarthritis, right ankle and foot (principal)
CPT/HCPCS: 99213

== ENCOUNTER 2023-02-04 08:39 | Outpatient (REF) | payer OTHER, SELFPAY ==
--- NOTE | 2023-02-04 08:42 | EMG_ITS ---
Bilateral median and ulnar motor and sensory studies were performed. Bilateral radial sensory studies were performed and paraspinal muscles were tested with a needle. IMPRESSION: 1. 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 2. Mild bilateral ulnar neuropathy across cubital tunnel. MD HEVER Jarvis/SADIQ / [phone]
== END 2023-02-04 08:40 | disposition home or self-care (01) ==
LOC: HO.NEURO 08:39
PROVIDERS: PCP Family Medicine; Visit Provider Physician Assistant
DX: G56.03 Carpal tunnel syndrome, bilateral upper limbs (principal); R20.0 Anesthesia of skin; R20.2 Paresthesia of skin
CPT/HCPCS: 95886; 95913

== ENCOUNTER 2023-03-01 12:42 | Outpatient (REF) | payer OTHER, SELFPAY ==
--- NOTE | ~2023-03-01 | XR_ITS ---
EXAMINATION: XR WRIST, LEFT CLINICAL INFORMATION: Pain in unspecified wrist COMPARISON: None available. TECHNIQUE: PA, lateral, and oblique views of the left wrist. FINDINGS: There is severe degenerative change of the first carpometacarpal joint with [id number] appearance and heterotopic bone formation. There is slight lateral translation of the base of the proximal phalanx of the thumb with respect to the trapezium. There is also narrowing of the triscaphe joint. No acute fracture. Minimal joint spaces are within normal limits. Slight calcification is seen in the region of the triangular fibrocartilage complex consistent with CPPD (calcium pyrophosphate deposition disease). XR/XR wrist LT min 3V IMPRESSION: 1. Severe degenerative change of the first carpometacarpal joint. 2. Chondrocalcinosis (calcium pyrophosphate deposition disease).
== END 2023-03-01 12:43 | disposition home or self-care (01) ==
LOC: HO.HOSX 12:42
PROVIDERS: PCP Family Medicine; Visit Provider Physician Assistant
DX: G56.03 Carpal tunnel syndrome, bilateral upper limbs (principal); M19.042 Primary osteoarthritis, left hand
CPT/HCPCS: 73110

== ENCOUNTER 2023-03-01 12:42 | Outpatient (AMB) | payer OTHER, SELFPAY ==
--- NOTE | 2023-03-01 12:44 | MHC.OFFVIS ---
Intake Vital Signs 03/01/23 12:45 Height 5 ft 10 in Weight 200 lb BMI 28.7 Handedness Right Intake Visit Reasons: OV- EMG B/L CTS Intake Note: Gautam is a 57 year old right hand dominant male who presents today for a EMG review of his bilateral hand CTS, EMG done 02/04/23. Patient reports his left hand is getting worse than his right hand. Allergies CRUSTACEANS Allergy (Intermediate, Uncoded 01/27/23 08:40) SWELLING/DIFF.BREATHING shrimp/crab/lobster Allergy (Unknown, Uncoded 01/27/23 08:40) facial swelling HPI OV- EMG B/L CTS HPI Details 58-year-old right hand dominant male who presents in the office today for an evaluation of bilateral hand pain. The patient reports obtaining an EMG on 02/04/2023. He states his left hand is worse then his right hand. He states when his hands get cold they begin to hurt. He confirms a ?sleep? sensation in the bilateral hand. He reports numbness and tingling in the thumb, index and middle digits. He also reports occasional numbness and tingling in the right and little digits. He confirms wear a brace at night to try to get relief from pain, numbness, and tingling. He reports pain in the neck, bilateral shoulder, and bilateral upper extremities. He has a history of injection in the neck. He states the numbness and tingling increased after receiving these injections. He states he was seen at [facility] and that is where he was told he had arthritis in the neck and received injections for it. He is unsure if they gave him any relief. 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 Review of Systems Const All systems reviewed & are unremarkable except as noted in HPI and below Physical Exam Vital Signs: BMI result Body Mass Index 28.7 Const General: cooperative, healthy appearing and no acute distress Resp Effort & Inspection: normal respiratory effort and able to speak in complete sentences Cardio Rate: regular rate Peripheral pulses: Peripheral pulses 2+ throughout GI Palpation (GI): Soft to palpation Skin Lesions: no lesions Rashes: no rashes Extrem Other: Left hand: Normal to inspection. No ecchymosis, erythema, or edema. Able to perform full finger flexion, extension, abduction, adduction, finger cross, okay sign, and thumbs up without deficit. Able to make a closed fist. Reports numbness and tingling in the bilateral thumbs, index, and middle digits. He reports occasional numbness and tingling in the bilateral ring and little digits. Positive Tinel?s at the carpal tunnel. Capillary refill is brisk. Radial pulse intact. Assessment & Plan Assessment & Plan (1) Left carpal tunnel syndrome: Code(s): G56.02 - Carpal tunnel syndrome, left upper limb (2) Right carpal tunnel syndrome: Code(s): G56.01 - Carpal tunnel syndrome, right upper limb (3) Osteoarthritis of left hand: Code(s): M19.042 - Primary osteoarthritis, left hand Qualifiers: Osteoarthritis type: unspecified Qualified Code(s): M19.042 - Primary osteoarthritis, left hand Plan Mr. Pearson is a 58-year-old right hand dominant male who presents in the office today for an evaluation of bilateral hand pain. The patient reports obtaining an EMG on 02/04/2023. He states his left hand is worse then his right hand. He states when his hands get cold they begin to hurt. He confirms a ?sleep? sensation in the bilateral hand. He reports numbness and tingling in the thumb, index and middle digits. He also reports occasional numbness and tingling in the right and little digits. He confirms wear a brace at night to try to get relief from pain, numbness, and tingling. He reports pain in the neck, bilateral shoulder, and bilateral upper extremities. He has a history of injection in the neck. He states the numbness and tingling increased after receiving these injections. He states he was seen at [facility] and that is where he was told he had arthritis in the neck and received injections for it. He is unsure if they gave him any relief. Left hand: We discussed conservative versus surgical treatment for treatment of his bilateral hand pains. The patient would like to meet with Dr. London to discuss treatment of the carpal tunnel and arthritis is the bilateral hands. Follow up will be with Dr. London, or sooner if needed. Neck: He will be referred to see Physiatry for further evaluation of the neck pain. Follow up with Orthopedics will be PRN, or sooner if needed. X-rays of the left wrist which were obtained while in the office today and were reviewed by me, Aishwarya Mccallum PA-C, revealed no acute fracture or dislocation. Significant osteoarthritis at the CMC and distal radius. EMG of the bilateral upper extremities, obtained on 02/04/2023, revealed: 1. 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 2. Mild bilateral ulnar neuropathy across cubital tunnel. Orders: Orders XR wrist LT min 3V Today M25.539 - Pain in unspecified wrist Patient Instructions: Scribed for Aishwarya Mccallum PA-C by Iva Rand medical assistant secretary, on 03/01/2023 at 12:56 pm, EST. Coding Level of Care Code Est Pt Level 4 (11438) Diagnoses Left carpal tunnel syndrome G56.02 Right carpal tunnel syndrome G56.01 Osteoarthritis of left hand, unspecified osteoarthritis type M19.042 Osteoarthritis type: unspecified
[2023-03-01 12:45] VITALS: BMI 28.7
== END 2023-03-01 13:30 | disposition home or self-care (01) ==
PROVIDERS: PCP Family Medicine; Visit Provider Physician Assistant
DX: G56.03 Carpal tunnel syndrome, bilateral upper limbs (principal); M19.042 Primary osteoarthritis, left hand
CPT/HCPCS: 99213

== ENCOUNTER 2023-03-10 08:25 | Outpatient (AMB) | payer OTHER, SELFPAY ==
--- NOTE | 2023-03-10 08:32 | A.OFFVIS_ITS ---
Intake Vital Signs 03/10/23 08:37 Height 5 ft 10 in Weight 200 lb BMI 28.7 Intake Visit Reasons: Newprob- C- Spine eval Intake Note: Gautam 58 yr old male presents today for a new problem for an evaluation for his C- Spine. States having ongoing pain for many years. hx of right shoulder impingement who was treated with Dr. Early. He states that he tried injections in the past which didn't provide him any relief. Patient reports attending physical therapy with no relief. Allergies CRUSTACEANS Allergy (Intermediate, Uncoded 01/27/23 08:40) SWELLING/DIFF.BREATHING shrimp/crab/lobster Allergy (Unknown, Uncoded 01/27/23 08:40) facial swelling Medication List - Last Reconciled 03/10/23 by Jerri Diaz MD amlodipine 5 mg PO DAILY atenolol 50 mg PO DAILY atorvastatin 40 mg PO DAILY dqwmgrknzx-nhlkvkhazrapt-oejv 50-325-40 mg 1 tab PO Q4H PRN cyclobenzaprine 10 mg PO BEDTIME epinephrine IM hydrocortisone valerate 0.2% topical lisinopril 10 mg PO DAILY omeprazole 20 mg PO BID tadalafil (Cialis) 5 mg PO DAILY 90 days HPI HPI Comments History of Present Illness Details Waiting to see Dr. London for consideration of CTS surgery. Used to see Dr. Early for RTC surgery bilateral. Used to see Dr. Borrero for the neck pain. Told to have arthritis, that would have been more than 5-7 years ago. Believe he had an MRI, but also at least 5 years ago. Had several PT without much relief. In 1991, had injury upper and lower back, groin pull. Has had other work injuries that affected neck, caused ROM difficulties then. Had several PT without much relief. Had myofascial therapy and facet pain. Most recently, maybe 2 years ago, went to [facility] for cervical injections, without relief. [place] at that time to be muscle related. He said no repeat MRIs were done at [facility]. Also had chiropractor and massage therapies. Uses TENS unit and does do own exercises. He gets headache, and he thinks it could be related to tension and muscle. Takes butalbital. He then got trigger point injections from [facility] which he thinks irritated it even more, maybe a year ago. He thinks the numbness on the hands came from the trigger point injections. Posterior neck pain, radiates to trapezius, but not lower than shoulder. Points more to right side, says it is unusual for that to radiate that low. Would self massage the paraspinals and traps with some relief. Hears crunching. Numbness seems to be a separate issue, coming from CTS and [facility]. 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 Review of Systems Const All systems reviewed & are unremarkable except as noted in HPI and below Physical Exam Vital Signs: BMI result Body Mass Index 28.7 Constitutional: Patient appears to be in no acute distress, well nourished and well developed. Patient was appropriately conversant and oriented. Good historian. MSK: Inspection reveals appropriate head and neck positioning. Trigger point noted right upper trapezius. Cervical ROM was full. Spurling's sign negative. No scapular winging. Bilateral shoulder, elbow and wrist ROM WNL. No ligamentous laxity or crepitance. No increased effusion. No specific abnormalities or instability found on inspection and palpation of the spine and extremities. Strength is 5/5 in all muscle groups tested. No increased tone noted. Neurological: Neurologic examination of the upper and lower extremities was nonfocal with intact sensation, muscle stretch reflexes and without focal motor deficits . Coyle?s negative bilaterally. Babinski was down going bilaterally. Clonus was negative. Gait is non-antalgic without loss of balance. Results Reviewed Results Reviewed: I independently reviewed the results of the following: Cervical x-ray done in the office today-showed multilevel disc space narrowing, anterior endplate spurs Date of Service: 03/01/23 Procedure(s): XR wrist LT min 3V Accession Number(s): [id number] cc: Samy Mccallumberto AVILEZ-Mag; HigueraKim DO~ EXAMINATION: XR WRIST, LEFT CLINICAL INFORMATION: Pain in unspecified wrist COMPARISON: None available. TECHNIQUE: PA, lateral, and oblique views of the left wrist. FINDINGS: There is severe degenerative change of the first carpometacarpal joint with otxr-zt-isfg appearance and heterotopic bone formation. There is slight lateral translation of the base of the proximal phalanx of the thumb with respect to the trapezium. There is also narrowing of the triscaphe joint. No acute fracture. Minimal joint spaces are within normal limits. Slight calcification is seen in the region of the triangular fibrocartilage complex consistent with CPPD (calcium pyrophosphate deposition disease). XR/XR wrist LT min 3V IMPRESSION: 1. Severe degenerative change of the first carpometacarpal joint. 2. Chondrocalcinosis (calcium pyrophosphate deposition disease). I reviewed records from the following: Ortho Assessment & Plan Assessment & Plan (1) Cervical radiculitis: Code(s): M54.12 - Radiculopathy, cervical region (2) Chronic neck pain: Code(s): M54.2 - Cervicalgia; G89.29 - Other chronic pain (3) Myofascial pain: Code(s): M79.18 - Myalgia, other site Plan Chronic neck pain, multiple injuries in the past, who has undergone adequate conservative management including PT, chiropractor, massage, exercise, injections, without lasting relief. X-rays have shown spondylosis. Exam also shows myofascial pain. It would be reasonable to obtain further imaging such as MRI. An MRI would help rule out any serious condition, guide treatment and assess prognosis for recovery. Specifically ruling out cord or nerve root compression. We discussed possibility of injections after we get more information from an MRI. We discussed difference between trigger point injections and cervical spine injections. Patient willing to retry injections if recommended. Assessment and plan discussed with patient, and patient was agreeable. All questions were answered thoroughly. Follow-up after MRI. Jerri Diaz MD, GANESH Board Certified, [place] [employer] and Rehabilitation (ABPMR) Board Certified, [place] Board of Electrodiagnostic Medicine (ABEM) Orders: Orders MR cervical spine wo con Today G89.29 - Other chronic pain, M54.12 - Radiculopathy, cervical region, M54.2 - Cervicalgia XR cervical spine 3V Today M54.2 - Cervicalgia Coding Level of Care Code New Pt Level 4 (00100) Diagnoses Cervical radiculitis M54.12 Chronic neck pain M54.2; G89.29 Myofascial pain M79.18
[2023-03-10 08:37] VITALS: BMI 28.7
== END 2023-03-10 09:12 | disposition home or self-care (01) ==
PROVIDERS: PCP Family Medicine; Visit Provider Physical Medicine & Rehabilitation
DX: M54.12 Radiculopathy, cervical region (principal); M54.2 Cervicalgia; G89.29 Other chronic pain; M79.18 Myalgia, other site
CPT/HCPCS: 99204

== ENCOUNTER 2023-03-10 13:57 | Outpatient (REF) | payer OTHER, SELFPAY ==
--- NOTE | ~2023-03-10 | XR_ITS ---
EXAMINATION: XR CERVICAL SPINE CLINICAL INFORMATION: Cervicalgia. COMPARISON: None available. TECHNIQUE: Frontal, odontoid and lateral views of the cervical spine were obtained. FINDINGS: There is bony demineralization. At C3-C4 through C6-C7, there is moderate to marked disc space narrowing. The remaining disc spaces are relatively well-maintained. No acute fracture or spondylolisthesis is seen. There is multi-level cervical spondylosis. The posterior elements are intact. The dens is intact. No prevertebral soft tissue swelling is seen. XR/XR cervical spine 3V IMPRESSION: 1. At C3-C4 through C6-C7, there is moderate to marked degenerative disc disease. 2. There is multi-level cervical spondylosis and facet arthropathy.
== END 2023-03-10 13:58 | disposition home or self-care (01) ==
LOC: HO.HOSX 13:57
PROVIDERS: Visit Provider Physical Medicine & Rehabilitation
DX: M54.12 Radiculopathy, cervical region (principal); M79.18 Myalgia, other site
CPT/HCPCS: 72040

== ENCOUNTER 2023-03-15 19:33 | Outpatient (REF) | payer OTHER, SELFPAY ==
--- NOTE | ~2023-03-15 | MR_ITS ---
EXAMINATION: MR CERVICAL SPINE WITHOUT CONTRAST CLINICAL INFORMATION: Radiculopathy. Neck pain. COMPARISON: X-ray dated 03/10/2023. TECHNIQUE: Multiplanar, multisequential imaging of the cervical spine was performed without contrast. Limited study with motion artifacts. FINDINGS: VERTEBRAL BODIES AND PARASPINAL SOFT TISSUES: There are mixed chronic and mild edematous endplate changes with significant disc space narrowing at the C4-C5 and C5-C6 levels. The marrow signal is within normal limits. There is a mild leftward curvature of the cervical spine. Mild posterior subluxations evident at multiple levels from the C3 through the C6 levels. There is severe loss of disc height as well at the C3-C4 and C6-C7 levels. The vertebral artery flow-voids are maintained. The paraspinal soft tissues are normal. The imaged portions of the lungs are grossly clear. CERVICOMEDULLARY JUNCTION AND VISUALIZED POSTERIOR FOSSA: The craniovertebral junction and imaged portions of the brain parenchyma appear normal. There is a small 7 x 4 mm syrinx in the right paramedian aspect of the cord at the C6 level. No additional cord signal abnormality is seen. SPINAL LEVELS: C2-C3: No significant disc pathology. No central canal stenosis or foraminal narrowing. C3-C4: Significant loss of disc height with a shallow, broad-based disc-osteophyte complex mildly impressing upon the ventral thecal sac. Severe bilateral foraminal encroachment without central canal stenosis. C4-C5: Retrosubluxation and disc-osteophyte complex result in garp-vm-lyhpttqq central canal stenosis and severe bilateral foraminal encroachment. C5-C6: Disc-osteophyte complex with caunbeuz-pk-mvsiqv foraminal narrowing, worse on the right side. No central canal stenosis. C6-C7: Mild disc-osteophyte complex with a small left subarticular zone disc extrusion. No central canal stenosis. Severe bilateral foraminal narrowing. C7-T1: No disc pathology. No central canal stenosis or foraminal narrowing. Severe facet arthropathy, worse on the right side. MR/MR cervical spine wo con IMPRESSION: 1. Limited study with motion artifacts. 2. Moderate multilevel cervical spondylosis with ecjv-ik-jxjbqotu central canal stenosis at the C4-C5 level. Significant multilevel foraminal narrowing due to disc-osteophyte complexes. Small left subarticular zone disc extrusion at the C6-C7 level. 3. Focal 7 x 4 mm syrinx in the right paramedian aspect of the cord at the C6 level.
== END 2023-03-15 19:34 | disposition home or self-care (01) ==
LOC: HO.MRI 19:33
PROVIDERS: PCP Family Medicine; Visit Provider Physical Medicine & Rehabilitation
DX: M54.12 Radiculopathy, cervical region (principal); G89.29 Other chronic pain
CPT/HCPCS: 72141

== ENCOUNTER 2023-03-23 13:19 | Outpatient (AMB) | payer OTHER, SELFPAY ==
[2023-03-23 13:21] VITALS: BMI 28.7
--- NOTE | 2023-03-23 13:21 | A.OFFVIS_ITS ---
Intake Vital Signs 03/23/23 13:21 Height 5 ft 10 in Weight 200 lb BMI 28.7 Intake Visit Reasons: OV- EMG B/L CTS Intake Note: Gautam 58 yr old male presents today for to meet with Dr. London to discuss CTR and also seek treatment for O.A of left hand. Last seen with Sha Neff who reviewed EMG. Patient would like to meet Dr. London to discuss surgical options. Also mentioned he is seeing Dr. Cruz for cervical pain and recently had an MRI which will be reviewed with Dr. Cruz in about 1 week. Allergies CRUSTACEANS Allergy (Intermediate, Uncoded 03/23/23 13:23) SWELLING/DIFF.BREATHING shrimp/crab/lobster Allergy (Unknown, Uncoded 03/23/23 13:23) facial swelling HPI OV- EMG B/L CTS HPI Details Gautam is a 58 year old right hand dominant man who presents for a NCS review of his bilateral hand numbness. He would also like to discuss his left basal joint arthritis. 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 His primary complaint of numbness is in his left hand today, which he says is present in all fingers. Symptoms intermittent, but daily, worse at night or with activity. He also complains of pain at the base of his left thumb, worse with pinching or gripping activities. He is seen today wearing a comfort cool brace, and he says he sleeps with a carpal tunnel wrist brace on at night. He is concerned about having arthritis in multiple areas of his body. He says he has a history of multiple minor injuries, and a family hx of arthritis. He wants to know if he should be seen by Rheumatology for this. He complains of right shoulder pain, especially at night, and he says he cannot sleep on his right side, which he says may have improved his nighttime numbness in his right hand. He was seen by Dr. Cruz for symptoms of cervical radiculopathy. He has completed a C-spine MRI and is scheduled to meet with her on 03/31/23 for review, but he has been googling the results and would like to discuss his MRI as he has some concerns. 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 Review of Systems Const All systems reviewed & are unremarkable except as noted in HPI and below Physical Exam Vital Signs: BMI result Body Mass Index 28.7 Const General: cooperative, healthy appearing and no acute distress Orientation/consciousness: patient oriented x3 HEENT Head: Yes normocephalic and Yes atraumatic Eyes EOM: EOMs intact bilaterally Resp Effort & Inspection: normal respiratory effort and able to speak in complete sentences Cardio Jugular venous distension: no JVD Skin General skin exam: turgor normal Rashes: no rashes Neuro General: patient oriented x3 Extrem Other: Evaluation of bilateral Upper Extremity: The patient is alert, oriented, and in no acute distress Neuro: Median, Ulnar, Radial nerves motor and sensory intact and sensation is normal to the tips of all digits No thenar or intrinsic wasting Good APB muscle belly firing and good finger cross Vascular: Cap refill brisk ROM: He can make a fist and extend all his digits No locking or catching Skin: No lacerations or abrasions. General: No Ecchymosis. No Erythema or evidence of infection. Nerve Conduction Study: IMPRESSION: 1. 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 2. Mild bilateral ulnar neuropathy across cubital tunnel. Jonathan Rosario MD 02/04/2023 Radiographs: 3 views of the left wrist form 03/01/23 were reviewed by me today in clinic. No fx or dislocations. He has some widening of the scapholunate interval, with some evidence of radioscaphoid arthritis. He has end stage basal joint arthritis with near complete loss of joint space, subluxation, and osteophyte formation. There appears to be a small metallic foreign body in the superficial soft tissues of the volar aspect of his wrist, which measures ~2-3 millimeters in diameter. Psych Appearance: grossly normal Affect: normal affect Attitude: cooperative Assessment & Plan Assessment & Plan (1) Right carpal tunnel syndrome: Code(s): G56.01 - Carpal tunnel syndrome, right upper limb (2) Left carpal tunnel syndrome: Code(s): G56.02 - Carpal tunnel syndrome, left upper limb (3) Cubital tunnel syndrome on right: Code(s): G56.21 - Lesion of ulnar nerve, right upper limb (4) Cubital tunnel syndrome on left: Code(s): G56.22 - Lesion of ulnar nerve, left upper limb (5) Osteoarthritis of carpometacarpal joint of left thumb: Code(s): M18.12 - Unilateral primary osteoarthritis of first carpometacarpal joint, left hand Plan Assessment & Plan: 1. Left Carpal tunnel syndrome, mild-moderate Symptoms intermittent, but daily, worse at night 2. Left Cubital tunnel syndrome, mild Symptoms intermittent, but daily, worse at night I educated him about this condition I discussed operative and non-operative treatment options The patient would like to proceed with surgery, however he is unsure if his small finger get numb daily He says he will take the next week to consider how often his small finger gets numb, and when he returns to the office on 03/31/[address] Cruz, he will let us know if his small finger is not developing numbness daily. We will schedule him for a general procedure, but this may change to a local. The risks and benefits of operative treatment were discussed with the patient and the patient wishes to proceed with surgery. These risks include, but are n ot limited to risk of damage to blood vessels, nerves, tendons, infection, recurrence, incomplete relief of preoperative symptoms, persistent pain, possible need for further surgery and the risks associated with regional blocks and anesthesia. The plan is to take the patient to the operating room sometime in the next few weeks for the following procedures: 1. Left carpal tunnel release, under general 2. Left cubital tunnel release vs transposition, under general All of the preoperative paperwork including the consent was reviewed today. All the patient's questions were answered. The patient understands that they will be contacted by our mold parter soon to schedule this procedure He denies Diabetes, blood thinners, asthma, heart, lung, kidney issues 3. Right Carpal tunnel syndrome, mild-moderate Symptoms intermittent, but daily, worse at night 4. Right Cubital tunnel syndrome, mild Symptoms intermittent, but daily, worse at night 5. Left basal joint arthritis, severe He is seen today wearing a comfort cool brace 6. Left scapholunate advanced collapse, early Primarily involving radioscaphoid joint at this point Wears a wrist brace when symptomatic. Talked about activity modification. May benefit from an injection in the future 7. Left wrist foreign body Measuring ~2-3 millimeters in diameter. There appears to be a small metallic foreign body in the superficial soft tissues of the volar aspect of his wrist Scribed for Swati London MD by Farhat Thompson, medical reception, on [ ] at [ ], EST. Coding Level of Care Code New Pt Level 4 (34923) Diagnoses Right carpal tunnel syndrome G56.01 Left carpal tunnel syndrome G56.02 Cubital tunnel syndrome on right G56.21 Cubital tunnel syndrome on left G56.22 Osteoarthritis of carpometacarpal joint of left thumb M18.12
== END 2023-03-23 14:14 | disposition home or self-care (01) ==
PROVIDERS: PCP Family Medicine; Visit Provider Orthopaedic Surgery
DX: G56.03 Carpal tunnel syndrome, bilateral upper limbs (principal); G56.23 Lesion of ulnar nerve, bilateral upper limbs; M18.12 Unilateral primary osteoarthritis of first carpometacarpal joint, left hand
CPT/HCPCS: 99204

== ENCOUNTER → 2023-03-23 13:19 | Outpatient (BNVA) | payer OTHER, SELFPAY | PROVIDERS: PCP Family Medicine; Visit Provider Orthopaedic Surgery ==

== ENCOUNTER 2023-03-31 09:45 | Outpatient (AMB) | payer OTHER, SELFPAY ==
--- NOTE | 2023-03-31 10:04 | MHC.OFFVIS ---
Intake Vital Signs 03/31/23 10:05 Height 5 ft 10 in Weight 200 lb BMI 28.7 Intake Visit Reasons: ov- MRI Cervical Spine review/ Confirmed Intake Note: Gautam is a 58 year old male who presents today for a Cervical Spine MRI review, depending on results we will discuss possible cervical spine injections vs trigger point injections. Allergies CRUSTACEANS Allergy (Intermediate, Uncoded 03/31/23 10:05) SWELLING/DIFF.BREATHING shrimp/crab/lobster Allergy (Unknown, Uncoded 03/31/23 10:05) facial swelling Medication List - Last Reconciled 03/31/23 by Jerri Diaz MD amlodipine 5 mg PO DAILY atenolol 50 mg PO DAILY atorvastatin 40 mg PO DAILY hnquqfmjgs-arduphipxwwnr-mfaz 50-325-40 mg 1 tab PO Q4H PRN cyclobenzaprine 10 mg PO BEDTIME epinephrine IM hydrocortisone valerate 0.2% topical lisinopril 10 mg PO DAILY omeprazole 20 mg PO BID tadalafil (Cialis) 5 mg PO DAILY 90 days HPI HPI Comments History of Present Illness Details Used to see Dr. Early for RTC surgery bilateral. Used to see Dr. Borrero for the neck pain. Told to have arthritis, that would have been more than 5-7 years ago. Believe he had an MRI, but also at least 5 years ago. Had several PT without much relief. In 1991, had injury upper and lower back, groin pull. Has had other work injuries that affected neck, caused ROM difficulties then. Had several PT without much relief. Had myofascial therapy and facet pain. Most recently, maybe 2 years ago, went to [facility] for cervical injections, without relief. Hitchcock at that time to be muscle related. He said no repeat MRIs were done at [facility]. Also had chiropractor and massage therapies. Uses TENS unit and does do own exercises. He gets headache, and he thinks it could be related to tension and muscle. Takes butalbital. He then got trigger point injections from [facility] which he thinks irritated it even more, maybe a year ago. He thinks the numbness on the hands came from the trigger point injections. Posterior neck pain, radiates to trapezius, but not lower than shoulder. Points more to right side, says it is unusual for that to radiate that low. Would self massage the paraspinals and traps with some relief. Hears crunching. Numbness seems to be a separate issue, coming from CTS and UNE. Waiting to see Dr. London for consideration of CTS surgery. Surgery scheduled 06/09. Since last seen, no change in his neck pain. He did have a swelling on posterior knee a few weeks ago, and started tingling on right 3rd and 4th toes. Denies numbness or weakness or foot drop. [facility] Medical History (Updated 03/31/23 @ 10:49 by Jerri Diaz MD) Synovial cyst of popliteal space [Knight], right knee Spondylosis of cervical spine Syrinx of spinal cord Interstitial cystitis BPH loc w urin obs/LUTS Interstitial cystitis BPH (benign prostatic hyperplasia) GERD (gastroesophageal reflux disease) Elevated cholesterol HTN (hypertension) Surgical History Hx of knee surgery History of nasal surgery H/O rotator cuff surgery Hx of cystoscopy Hx of colonoscopy Social History Patient Tobacco Use Status: Former Tobacco user Current occupational status: employed 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 Physical Exam Vital Signs: BMI result Body Mass Index 28.7 Constitutional: Patient appears to be in no acute distress, well nourished and well developed. Patient was appropriately conversant and oriented. Good historian. MSK: Inspection reveals appropriate head and neck positioning. Cervical ROM was full. Spurling's sign negative. No scapular winging. Bilateral shoulder, elbow and wrist ROM WNL. No ligamentous laxity or crepitance. No increased effusion. Possible Knight cyst right posterior knee. No edema or calf tenderness. Strength is 5/5 in all muscle groups tested. No increased tone noted. Neurological: Neurologic examination of the upper and lower extremities was nonfocal with intact sensation, muscle stretch reflexes and without focal motor deficits . Coyle?s negative bilaterally. Babinski was down going bilaterally. Clonus was negative. Gait is non-antalgic without loss of balance. Results Reviewed Results Reviewed: Ordering Physician: Jerri Cruz Date of Service: 03/15/23 Procedure(s): MR cervical spine wo [facility] Accession Number(s): [id number] cc: Quincy Higueraortiz HER; Jerri Fuentes EXAMINATION: MR CERVICAL SPINE WITHOUT CONTRAST CLINICAL INFORMATION: Radiculopathy. Neck pain. COMPARISON: X-ray dated 03/10/2023. TECHNIQUE: Multiplanar, multisequential imaging of the cervical spine was performed without contrast. Limited study with motion artifacts. FINDINGS: VERTEBRAL BODIES AND PARASPINAL SOFT TISSUES: There are mixed chronic and mild edematous endplate changes with significant disc space narrowing at the C4-C5 and C5-C6 levels. The marrow signal is within normal limits. There is a mild leftward curvature of the cervical spine. Mild posterior subluxations evident at multiple levels from the C3 through the C6 levels. There is severe loss of disc height as well at the C3-C4 and C6-C7 levels. The vertebral artery flow-voids are maintained. The paraspinal soft tissues are normal. The imaged portions of the lungs are grossly clear. CERVICOMEDULLARY JUNCTION AND VISUALIZED POSTERIOR FOSSA: The craniovertebral junction and imaged portions of the brain parenchyma appear normal. There is a small 7 x 4 mm syrinx in the right paramedian aspect of the cord at the C6 level. No additional cord signal abnormality is seen. SPINAL LEVELS: C2-C3: No significant disc pathology. No central canal stenosis or foraminal narrowing. C3-C4: Significant loss of disc height with a shallow, broad-based disc-osteophyte complex mildly impressing upon the ventral thecal sac. Severe bilateral foraminal encroachment without central canal stenosis. C4-C5: Retrosubluxation and disc-osteophyte complex result in jbpc-xm-ishpzups central canal stenosis and severe bilateral foraminal encroachment. C5-C6: Disc-osteophyte complex with dwtkhpmo-cb-pgrmbr foraminal narrowing, worse on the right side. No central canal stenosis. C6-C7: Mild disc-osteophyte complex with a small left subarticular zone disc extrusion. No central canal stenosis. Severe bilateral foraminal narrowing. C7-T1: No disc pathology. No central canal stenosis or foraminal narrowing. Severe facet arthropathy, worse on the right side. MR/MR cervical spine wo con IMPRESSION: 1. Limited study with motion artifacts. ? 2. Moderate multilevel cervical spondylosis with scoq-yz-zffubkrv central canal stenosis at the C4-C5 level. Significant multilevel foraminal narrowing due to disc-osteophyte complexes. Small left subarticular zone disc extrusion at the C6-C7 level. ? 3. Focal 7 x 4 mm syrinx in the right paramedian aspect of the cord at the C6 level. Assessment & Plan Assessment & Plan (1) Spondylosis of cervical spine: Code(s): M47.812 - Spondylosis without myelopathy or radiculopathy, cervical region (2) Syrinx of spinal cord: Code(s): G95.0 - Syringomyelia and syringobulbia (3) Synovial cyst of popliteal space [Knight], right knee: Code(s): M71.21 - Synovial cyst of popliteal space [Knight], right knee Plan MRI shows syrinx at C6 level. He does not show signs of myelopathy on exam today. Could be chronic given multiple accidents in the past but unfortunately there are no prior imaging to compare with. We discussed what syrinx means and what risks he could have in future. We agreed to hold off any injections for now and seek opinion from neurosurgery. Referral placed to Dr. Qureshi per their preference. Getting ultrasound for right leg, Knight's cyst. Discussed what to watch out for this Knight's cyst. Suspect tingling on toes would improve with resolution of the cyst. Watch out for development of true numbness or footdrop. Assessment and plan discussed with patient, and patient was agreeable. All questions were answered thoroughly. Follow up after seen by neurosurgery, they will keep me updated. Jerri Diaz MD, GANESH Board Certified, [place] [employer] and Rehabilitation (ABPMR) Board Certified, [place] Board [employer] Electrodiagnostic Medicine (ABEM) Orders: Orders US extremity nonvascular john Today M71.21 - Synovial cyst of popliteal space [Knight], right knee Referrals Neurosurgery Referral G95.0 - Syringomyelia and syringobulbia, M47.812 - Spondylosis without myelopathy or radiculopathy, cervical region Coding Level of Care Code Est Pt Level 4 (96845) Diagnoses Spondylosis of cervical spine M47.812 Syrinx of spinal cord G95.0 Synovial cyst of popliteal space [Knight], right knee M71.21
[2023-03-31 10:05] VITALS: BMI 28.7
== END 2023-03-31 10:50 | disposition home or self-care (01) ==
PROVIDERS: PCP Family Medicine; Visit Provider Physical Medicine & Rehabilitation
DX: M47.812 Spondylosis without myelopathy or radiculopathy, cervical region (principal); G95.0 Syringomyelia and syringobulbia; M71.21 Synovial cyst of popliteal space [Baker], right knee
CPT/HCPCS: 99214

== ENCOUNTER → 2023-03-31 09:45 | Outpatient (BNVA) | payer OTHER, SELFPAY | PROVIDERS: PCP Family Medicine; Visit Provider Physical Medicine & Rehabilitation ==

== ENCOUNTER 2023-04-01 14:23 | Outpatient (REF) | payer OTHER, SELFPAY ==
--- NOTE | ~2023-04-01 | US_ITS ---
EXAMINATION: ULTRASOUND RIGHT POPLITEAL FOSSA SOFT TISSUES CLINICAL INFORMATION: Right popliteal area, evaluate for Knight's cyst. COMPARISON: None. TECHNIQUE: Targeted ultrasound images were obtained by the arc trimmer of the area of concern as indicated by the patient in the right popliteal fossa. Radiologist was not in attendance. Images were later provided for interpretation. . FINDINGS: There is a 7.0 x 2.4 x 5.3 cm complex cyst with thick tang, septations and internal echoes in the right popliteal fossa. No internal vascularity was demonstrated. US/US extremity nonvascular john IMPRESSION: Complex cyst measuring approximately 7.0 cm in the right popliteal fossa.
== END 2023-04-01 14:24 | disposition home or self-care (01) ==
LOC: HO.HMGCX 14:23
PROVIDERS: PCP Family Medicine; Visit Provider Physical Medicine & Rehabilitation
DX: M71.21 Synovial cyst of popliteal space [Baker], right knee (principal)
CPT/HCPCS: 76882

== ENCOUNTER 2023-04-26 07:28 | Outpatient (REF) | payer OTHER, SELFPAY ==
[2023-04-26 12:21] LABS: Prostate Specific Antigen < 0.10 ng/mL (<0.05-4.0)
== END 2023-04-26 07:29 | disposition home or self-care (01) ==
LOC: HO.HMGCLDS 07:28
PROVIDERS: PCP Family Medicine; Visit Provider Urology
DX: Z12.5 Encounter for screening for malignant neoplasm of prostate (principal); C61 Malignant neoplasm of prostate
CPT/HCPCS: 36415; 84153

== ENCOUNTER 2023-04-30 10:10 | Outpatient (AMB) | payer OTHER, SELFPAY ==
--- NOTE | 2023-04-30 10:15 | A.OFFVIS_ITS ---
Intake Intake Visit Reasons: 3m/PSA(set)Confirmed Intake Note: Patient is Present for Follow Up PSA Urology Medication: Tadalafil Antibiotic Allergies:None Blood Thinners:None Allergies CRUSTACEANS Allergy (Intermediate, Uncoded 04/30/23 10:20) SWELLING/DIFF.BREATHING shrimp/crab/lobster Allergy (Unknown, Uncoded 04/30/23 10:20) facial swelling HPI HPI Comments History of Present Illness Details Gautam is a pleasant male. He is a patient of Dr. Higuera. He seen for the following urologic conditions - elevated PSA - prostate cancer Happy with confidence this point in time Occasional leakage with activity Uses depends which he finds helps with confidence Has started to have some erectile activity. Continues to combination daily Cialis and vacuum pump Discussed injection therapy and use of pump with constriction ring Emphasized that use of Cialis helps minimize penile scarring during the post procedure at time frame Continue check PSA every 3 months PSA - 02/06 <0.1, 05/08 <0.1 Prostate cancer -grade group 5, high-volume 05/07 - [facility] 09/[address] Enriquez 05/07 for PSA 7.1 with free PSA 18% Initial therapy robotic prostatectomy Dr Cowart [facility] 09/06 - genetics negative Clinical T1c, TRUS prostate size 35 g Histologic type: Adenocarcinoma, acinar type Manuela score: 9 (4+5) (left base lateral, left base medial, left mid lateral,left mid medial, left apex lateral, and left apex medial), 7 (3+4) (right base medial), 6 (3+3) (right base lateral) Tumor quantitation: Number cores positive: 8 Total number of cores: 15 - % of tissue involved: 44 % - 640/1600 Periprostatic fat inv.: Not identified Seminal vesicle inv.: Not identified Perineural inv.: Present Lymphovascular invasion: Not identified Staging - 06/07 [facility] PET-CT - isolated left side prostate activity - 06/07 MRI - multiple prostate lesions P iRADs 5 with apparent SHERRY to involve neurovascular bundles, no evidence for seminal vesicle involvement PFSH Medical History Synovial cyst of popliteal space [Knight], right knee Spondylosis of cervical spine Syrinx of spinal cord Interstitial cystitis BPH loc w urin obs/LUTS Interstitial cystitis BPH (benign prostatic hyperplasia) GERD (gastroesophageal reflux disease) Elevated cholesterol HTN (hypertension) Surgical History Hx of knee surgery History of nasal surgery H/O rotator cuff surgery Hx of cystoscopy Hx of colonoscopy Social History Patient Tobacco Use Status: Former Tobacco user Current occupational status: employed 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 Review of Systems Const Denies chills and Denies fever(s) Card Reports no additional complaints and Denies syncope Resp Denies cough GI Denies abdominal pain and Denies heartburn Reports as per HPI and Denies change in libido Neuro Denies syncope Psych Denies change in libido Endo Denies change in libido Physical Exam Const General: cooperative, healthy appearing, comfortable and no acute distress Orientation/consciousness: patient oriented x3 HEENT Face and sinus: Yes normal facial exam Mouth: moist mucous membranes Neck Neck: Yes normal visual inspection, Yes full ROM and Yes trachea midline Chest Chest palpation & inspection: normal inspection of the chest Resp Effort & Inspection: normal respiratory effort, able to speak in complete sentences and no respiratory distress GI Inspection: Yes normal to inspection Back/Spine/Pelvis Cervical Spine: normal cervical lordosis Thoracic/Lumbar Spine: thoracic and lumbar spine normal to inspection Skin General skin exam: no rashes or lesions noted Neuro General: patient oriented x3, gait normal, tone normal and moves all extremities Extrem General: Yes normal to inspection and Yes capillary refill normal Assessment & Plan Assessment & Plan (1) Prostate cancer: Comment: 05/07 high-grade, high-volume Code(s): C61 - Malignant neoplasm of prostate (2) BPH loc w urin obs/LUTS: Code(s): N40.1 - Benign prostatic hyperplasia with lower urinary tract symptoms Plan Three month follow-up PSA Orders: Orders Prostate Specific Antigen 3 Months C61 - Malignant neoplasm of prostate Patient Instructions: Imaging studies, laboratory and physical exam results were discussed and reviewed in detail. No major barriers to patient understanding were identified. An opportunity to ask questions regarding the treatment plan was provided. All questions were answered. The patient expressed understanding and agreement with the above treatment plan. The patient is aware they should contact our office by phone for worsening of their current condition or the appearance of new urologic symptoms. Compliance is encouraged with any medications and followup testing that is ordered. It is a privilege to participate in the urologic care of your patient. If you have any questions or concerns regarding treatment for the above conditions, or other urologic issues, please do not hesitate to contact me. The office telephone contact is [phone]. This note is constructed using voice recognition software. While every effort has been made to ensure accuracy remote sensing technologist errors may have been included. Yours sincerely, Dr Mario Enriquez MD, GANESH [facility] - Urology Providers of Expert, Compassionate Care for the Genitourinary System Coding Level of Care Code Est Pt Level 3 (28928) Diagnoses Prostate cancer C61 BPH loc w urin obs/LUTS N40.1
== END 2023-04-30 11:03 | disposition home or self-care (01) ==
PROVIDERS: PCP Family Medicine; Visit Provider Urology
DX: C61 Malignant neoplasm of prostate (principal); N40.1 Benign prostatic hyperplasia with lower urinary tract symptoms
CPT/HCPCS: 99213

== ENCOUNTER → 2023-04-30 10:10 | Outpatient (BNVA) | payer OTHER, SELFPAY | PROVIDERS: PCP Family Medicine; Visit Provider Urology ==

== ENCOUNTER 2023-06-02 08:02 | Outpatient (AMB) | payer OTHER, SELFPAY ==
--- NOTE | 2023-06-02 08:15 | A.OFFVIS_ITS ---
Intake Vital Signs 06/02/23 08:21 Height 5 ft 10 in Weight 200 lb BMI 28.7 Intake Visit Reasons: Pre-Lt CTR, Lt Cubital Tunnel 06/10/23 Intake Note: Gautam 58 yr old male presents today for his Pre-op visit for his left CTR & left Cubital Tunnel schedule for 06/10/23. Surgical consent signed and reviewed. Allergies CRUSTACEANS Allergy (Intermediate, Uncoded 06/02/23 08:27) SWELLING/DIFF.BREATHING shrimp/crab/lobster Allergy (Unknown, Uncoded 06/02/23 08:27) facial swelling HPI Pre-Lt CTR, Lt Cubital Tunnel 06/10/23 HPI Details Gautam is a 58 year old right hand dominant man who returns to discuss treatment for his left carpal & cubital tunnel syndrome. 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 His primary complaint is of numbness in all digits of his left hand, including his small finger. Symptoms intermittent, but daily, worse at night or with activity. He also has left basal joint OA which causes him pain, worse with pinching or gripping activities. He is seen today wearing a comfort cool brace, and he says he sleeps with a carpal tunnel wrist brace on at night. 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 Physical Exam Vital Signs: BMI result Body Mass Index 28.7 Extrem Other: Evaluation of Bilateral Upper Extremity: The patient is alert, oriented, and in no acute distress Neuro: Median, Ulnar, Radial nerves motor and sensory intact and sensation is normal to the tips of all digits No thenar or intrinsic wasting Good APB muscle belly firing and good finger cross Vascular: Cap refill brisk ROM: He can make a fist and extend all his digits No locking or catching . Nerve Conduction Study: IMPRESSION: 1. 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 2. Mild bilateral ulnar neuropathy across cubital tunnel. Jonathan Rosario MD 02/04/2023 Radiographs: 3 views of the left wrist form 03/01/23 were reviewed by me today in clinic. No fx or dislocations. He has some widening of the scapholunate interval, with some evidence of radioscaphoid arthritis. He has end stage basal joint arthritis with near complete loss of joint space, subluxation, and osteophyte formation. There appears to be a small metallic foreign body in the superficial soft tissues of the volar aspect of his wrist, which measures ~2-3 millimeters in diameter. Assessment & Plan Assessment & Plan (1) Left carpal tunnel syndrome: Code(s): G56.02 - Carpal tunnel syndrome, left upper limb (2) Cubital tunnel syndrome on left: Code(s): G56.22 - Lesion of ulnar nerve, left upper limb (3) Right carpal tunnel syndrome: Code(s): G56.01 - Carpal tunnel syndrome, right upper limb (4) Cubital tunnel syndrome on right: Code(s): G56.21 - Lesion of ulnar nerve, right upper limb (5) Osteoarthritis of carpometacarpal joint of left thumb: Code(s): M18.12 - Unilateral primary osteoarthritis of first carpometacarpal joint, left hand (6) Scapholunate advanced collapse of left wrist: Code(s): M19.132 - Post-traumatic osteoarthritis, left wrist (7) Foreign body of left wrist: Code(s): S60.852A - Superficial foreign body of left wrist, initial encounter Plan Assessment & Plan: 1. Left Carpal tunnel syndrome, mild-moderate Symptoms intermittent, but daily, worse at night 2. Left Cubital tunnel syndrome, mild Symptoms intermittent, but daily, worse at night I educated him about this condition I discussed operative and non-operative treatment options The patient would like to proceed with surgery, however he is unsure if his small finger get numb daily The risks and benefits of operative treatment were discussed with the patient and the patient wishes to proceed with surgery. These risks include, but are not limited to risk of damage to blood vessels, nerves, tendons, infection, recurrence, incomplete relief of preoperative symptoms, persistent pain, possible need for further surgery and the risks associated with regional blocks and anesthesia. The plan is to take the patient to the operating room sometime on 06/10/23 for the following procedures: 1. Left carpal tunnel release, under general 2. Left cubital tunnel release vs transposition, under general All of the preoperative paperwork including the consent was reviewed today. All the patient's questions were answered. He denies Diabetes, blood thinners, asthma, heart, lung, kidney issues 3. Right Carpal tunnel syndrome, mild-moderate Symptoms intermittent, but daily, worse at night 4. Right Cubital tunnel syndrome, mild Symptoms intermittent, but daily, worse at night 5. Left basal joint arthritis, severe He is seen today wearing a comfort cool brace 6. Left scapholunate advanced collapse, early Primarily involving radioscaphoid joint at this point Wears a wrist brace when symptomatic. Talked about activity modification. May benefit from an injection in the future 7. Left wrist foreign body Measuring ~2-3 millimeters in diameter. There appears to be a small metallic foreign body in the superficial soft tissues of the volar aspect of his wrist Scribed for Swati London MD by Farhat Thompson, medical assistant prn, on 06/02/23 at 8:40 AM, EST. Coding Level of Care Code Est Pt Level 4 (13445) Diagnoses Left carpal tunnel syndrome G56.02 Cubital tunnel syndrome on left G56.22 Right carpal tunnel syndrome G56.01 Cubital tunnel syndrome on right G56.21 Osteoarthritis of carpometacarpal joint of left thumb M18.12 Scapholunate advanced collapse of left wrist M19.132 Foreign body of left wrist S60.852A
[2023-06-02 08:21] VITALS: BMI 28.7
== END 2023-06-02 08:48 | disposition home or self-care (01) ==
PROVIDERS: PCP Family Medicine; Visit Provider Orthopaedic Surgery
DX: G56.03 Carpal tunnel syndrome, bilateral upper limbs (principal); G56.22 Lesion of ulnar nerve, left upper limb; G56.21 Lesion of ulnar nerve, right upper limb; M18.12 Unilateral primary osteoarthritis of first carpometacarpal joint, left hand; M19.132 Post-traumatic osteoarthritis, left wrist; S60.852A Superficial foreign body of left wrist, initial encounter
CPT/HCPCS: 99024

== ENCOUNTER → 2023-06-02 08:02 | Outpatient (BNVA) | payer OTHER, SELFPAY | PROVIDERS: PCP Family Medicine; Visit Provider Orthopaedic Surgery ==

== ENCOUNTER 2023-06-10 05:57 | Day surgery (SDC) | payer OTHER, SELFPAY ==
[2023-06-08 07:34] VITALS: BMI 28.7
--- NOTE | 2023-06-08 13:40 | HO.ANESPROP2 ---
Documented by User: Dia Looney NP 06/15/23 12:35 HPI - Anesthesia Eval Consult details Narrative: 58yo M for Left Carpal Tunnel Release, possible left cubital tunnel release verses transposition PMFSH Active Problems Active Problems: All Active Problems Foreign body of left wrist (Acute) Scapholunate advanced collapse of left wrist (Acute) Synovial cyst of popliteal space [Knight], right knee (Acute) Spondylosis of cervical spine (Acute) Syrinx of spinal cord (Acute) Osteoarthritis of carpometacarpal joint of left thumb (Acute) Cubital tunnel syndrome on left (Acute) Cubital tunnel syndrome on right (Acute) Myofascial pain (Acute) Chronic neck pain (Acute) Cervical radiculitis (Acute) Osteoarthritis of left hand (Acute) Arthritis of left hand (Acute) Osteoarthritis of right ankle (Acute) Left carpal tunnel syndrome (Acute) Right carpal tunnel syndrome (Acute) Numbness and tingling of right upper extremity (Acute) Numbness and tingling of left upper extremity (Acute) Prostate cancer (Acute) Nocturia (Acute) Elevated PSA (Acute) Interstitial cystitis (Acute) BPH loc w urin obs/LUTS (Acute) Acute bronchitis (Acute) Impingement syndrome of right shoulder (Acute) Past Medical History Medical History Synovial cyst of popliteal space [Knight], right knee Spondylosis of cervical spine Syrinx of spinal cord BPH loc w urin obs/LUTS Interstitial cystitis BPH (benign prostatic hyperplasia) GERD (gastroesophageal reflux disease) Elevated cholesterol HTN (hypertension) Surgical History Surgical History (Updated 06/10/23 @ 06:14 by Roula Cline RN) History of esophagogastroduodenoscopy (EGD) Hx of prostatectomy Hx of knee surgery History of nasal surgery H/O rotator cuff surgery Hx of cystoscopy Hx of colonoscopy History of Problems with Anesthesia: No Social History Social History Comment: counts correct Patient Tobacco Use Status: Former Tobacco user Quit Date: 1989 Current occupational status: employed 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 Meds Allergies Allergy/AdvReac Type Severity Reaction Status Date / Time CRUSTACEANS Allergy Intermediate SWELLING/DI Uncoded 06/10/23 06:14 FF.BREATHIN G shrimp/crab/lobster Allergy Unknown facial Uncoded 06/10/23 06:14 swelling Home Medications ?Medication ?Instructions ?Recorded ?Confirmed ?Last Taken ?Type amlodipine 5 mg tablet 5 mg PO DAILY 11/05/21 03/31/23 06/10/23 04:30 History atenolol 50 mg tablet 50 mg PO DAILY 11/05/21 03/31/23 06/10/23 04:30 History atorvastatin 40 mg tablet 40 mg PO DAILY 11/05/21 03/31/23 Unknown History puktcrptdc-kociatkfasjbc-httbljze 1 tab PO Q4H PRN Pain 11/05/21 03/31/23 Unknown History 50 mg-325 mg-40 mg tablet cyclobenzaprine 10 mg tablet 10 mg PO BEDTIME 11/05/21 03/31/23 Unknown History epinephrine 0.3 mg/0.3 mL IM allergies 11/05/21 03/31/23 Unknown History injection, auto-injector hydrocortisone valerate 0.2 % topical 11/05/21 03/31/23 Unknown History topical ointment omeprazole 20 mg capsule,delayed 20 mg PO BID 11/05/21 03/31/23 Unknown History release lisinopril 10 mg tablet 10 mg PO DAILY 10/20/22 03/31/23 Unknown History Exam Height,Weight and Vital Signs: Height 5 ft 10 in Weight 90.718 kg Assessment and Plan Assessment Anesthesia Assessment: Chart Reviewed Final Anesthetic Review History of Problems with Anesthesia: No Documented by User: Isabelle Kim MD 06/16/23 07:47 PMFSH Past Medical History Medical History Synovial cyst of popliteal space [Knight], right knee Spondylosis of cervical spine Syrinx of spinal cord BPH loc w urin obs/LUTS Interstitial cystitis BPH (benign prostatic hyperplasia) GERD (gastroesophageal reflux disease) Elevated cholesterol HTN (hypertension) Family History Family history of problems with anesthesia: No Surgical History Surgical History (Updated 06/10/23 @ 06:14 by Roula Cline RN) History of esophagogastroduodenoscopy (EGD) Hx of prostatectomy Hx of knee surgery History of nasal surgery H/O rotator cuff surgery Hx of cystoscopy Hx of colonoscopy Social History Social History Comment: counts correct Patient Tobacco Use Status: Former Tobacco user Quit Date: 1989 Current occupational status: employed 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 Meds Allergies Allergy/AdvReac Type Severity Reaction Status Date / Time CRUSTACEANS Allergy Intermediate SWELLING/DI Uncoded 06/10/23 06:14 FF.BREATHIN G shrimp/crab/lobster Allergy Unknown facial Uncoded 06/10/23 06:14 swelling Home Medications ?Medication ?Instructions ?Recorded ?Confirmed ?Last Taken ?Type amlodipine 5 mg tablet 5 mg PO DAILY 11/05/21 03/31/23 06/10/23 04:30 History atenolol 50 mg tablet 50 mg PO DAILY 11/05/21 03/31/23 06/10/23 04:30 History atorvastatin 40 mg tablet 40 mg PO DAILY 11/05/21 03/31/23 Unknown History xbqosoziuh-vjpnxeqxeftym-xwhrmkds 1 tab PO Q4H PRN Pain 11/05/21 03/31/23 Unknown History 50 mg-325 mg-40 mg tablet cyclobenzaprine 10 mg tablet 10 mg PO BEDTIME 11/05/21 03/31/23 Unknown History epinephrine 0.3 mg/0.3 mL IM allergies 11/05/21 03/31/23 Unknown History injection, auto-injector hydrocortisone valerate 0.2 % topical 11/05/21 03/31/23 Unknown History topical ointment omeprazole 20 mg capsule,delayed 20 mg PO BID 11/05/21 03/31/23 Unknown History release lisinopril 10 mg tablet 10 mg PO DAILY 10/20/22 03/31/23 Unknown History Exam Airway Mallampati Class: II TM Dist: >3cm Heart: rrr Lungs: cta Assessment and Plan Assessment Anesthesia Assessment: Anesthesia Plan Discussed Final Anesthetic Review Family History of Problems with Anesthesia: No NPO: Yes ASA Class: III Final Preanesthetic Review: No Changes in Pt Med Stat, Meds/Allgs Chart Reviewed, Consent Obtained/Reviewed and Anes Risks/Benef Reviewed Patient Risk: Intermediate Procedure Risk: Low Anesthetic Plan Anesthetic Plan: GA and Regional Block Disposition: Standard PACU
[2023-06-10] VITALS (8 sets, daily range): BP systolic 131–140; BP diastolic 79–89; PULSE 57–83; RESP 15–16; TEMP 36.4–36.7; O2SAT 96–97; BMI 30.3
[2023-06-10] MEDS: Lactated Ringers 1,000 ML 100 ML IVCONT (06:32)
--- NOTE | 2023-06-10 07:34 | MHC.SHP ---
Pre-Procedural Eval Section A - 24 Hr Update-Section A only Date of Service: 06/10/23 The patient is an INPATIENT: No Changes since office visit: No Cold of Flu in the past 2 weeks, No New Medical Problems, No Changes in Medication and No Patient answered all questions The patient has been examined within 24 hours of the surgical procedure. The History & Physical has been completed within 30 days and I have reviewed it.: Yes Section B - Complete if H&P > 30 days Chief Complaint: Carpal tunnel syndrome, left upper limb Allergies: Allergies Allergy/AdvReac Type Severity Reaction Status Date / Time CRUSTACEANS Allergy Intermediate SWELLING/DI Uncoded 06/10/23 06:14 FF.BREATHIN G shrimp/crab/lobster Allergy Unknown facial Uncoded 06/10/23 06:14 swelling Exam Exam Comment: Cubital tunnel syndrome and left carpal tunnel syndrome Plan Diagnosis/Plan: Unchanged I have reviewed the history and physical and performed a pertinent physical examination on my patient. No changes have occurred unless specified. Time Spent With Patient Time: Total time managing care of this patient today ____ minutes.
--- NOTE | 2023-06-10 07:35 | W.PM.OPN ---
Operative Note Operative Note Date of Service: 06/10/23 Narrative: Operative Note Narrative: Preop diagnosis: 1. Left Cubital tunnel syndrome 2. The left carpal tunnel syndrome Postop diagnosis: Same Procedure: 1. Left Cubital Tunnel Release 2. Left carpal tunnel release Surgeon: Swati London MD Anesthesia: General Anesthesia Findings: Thickening and fibrosis about the ulnar nerve at the cubital tunnel Implants: none Tourniquet time: Ready for minutes EBL: 5.0 ml Specimen: none Drains: None Complications: None Disposition: Brought to the recovery room in stable condition Plan: Follow-up in 10-14 days for wound check, and suture removal Indications: The patient is 58 years old with left cubital tunnel syndrome and left carpal tunnel syndrome . The risks and benefits of operative treatment, including but not limited to risk of damage to blood vessels, nerves, tendons, infection, recurrence, persistent pain or numbness, incomplete resolution of preoperative symptoms, or need for further surgery were discussed with the patient and they wished to proceed with surgery. Procedure: Once consent was obtained patient was brought back to the operating suite and placed in the operating table in a supine position. Perioperative antibiotics and anesthesia was administered by the anesthesia team. The limb was prepped and draped in a standard surgical fashion, and a sterile tourniquet applied to the proximal aspect of the left upper extremity. The limb was elevated exsanguinated with Esmarch bandage and the tourniquet inflated to 250 mm of mercury for a total tourniquet time of 34 minutes. Once assured that we had a good block, a 2.0 cm longitudinal incision was made centered over the left carpal tunnel. The incision was made through the skin to the subcutaneous tissues using a #15 blade. Dissection was made down to the level of the transverse carpal ligament with care being taken to protect the palmar cutaneous nerve. Once the transverse carpal ligament was clearly visualized, a longitudinal incision was made in the transverse carpal ligament 1st using a #15 blade, then using tenotomy scissors under direct visualization. Care was taken to look for and protect the motor branch of the median nerve when seen in this area. Once satisfied with our carpal tunnel release the wound was irrigated with normal saline. A 6 cm gently curved but longitudinally oriented incision was made centered over the cubital tunnel of the left upper extremity. Incision was made through the skin to the subcutaneous tissues using a # 15 Blade. I then dissected down to the level of the medial epicondyle and the cubital tunnel using tenotomy scissors. Care was taken to protect the lateral antebrachial cutaneous nerve. The ulnar nerve was identified just posterior to the medial intermuscular septum. The ulnar nerve was released in a proximal to distal direction using tenotomy in iris scissors while directly visualizing and protecting the ulnar nerve. Thickening and fibrosis was appreciated about the ulnar nerve as it passed through the cubital tunnel. The ulnar nerve was assessed as I passed the elbow through full flexion and extension, and was found to remain stable within its groove.. At this point the tourniquet was deflated and hemostasis obtained with a brief period of local pressure and bipolar electrocautery. The wound was copiously irrigated with normal saline. The subcutaneous layer was closed with 4-0 Vicryl suture, and the skin edges were reapproximated with 4-0 and 5-0 nylon suture. The wounds were infiltrated with some 1% lidocaine with epinephrine for postop pain control and sterile dressings were applied. The patient appears to have tolerated the procedure well and with no complications. All digits were well vascularized conclusion of the case.
== END 2023-06-10 10:30 | disposition home or self-care (01) ==
PROVIDERS: PCP Family Medicine; Visit Provider Orthopaedic Surgery
PROC: (CPT 64721; principal; 2023-06-10 07:30)
DX: G56.02 Carpal tunnel syndrome, left upper limb (principal); G56.22 Lesion of ulnar nerve, left upper limb; M18.12 Unilateral primary osteoarthritis of first carpometacarpal joint, left hand; R20.0 Anesthesia of skin; I10 Essential (primary) hypertension; E78.00 Pure hypercholesterolemia, unspecified; Z79.899 Other long term (current) drug therapy; Z98.890 Other specified postprocedural states; Z87.891 Personal history of nicotine dependence
CPT/HCPCS: 64721; 64718; J0131; J0690; J2250; J2704; J2795; J3010

== ENCOUNTER → 2023-06-10 05:57 | Outpatient (BNV) | payer OTHER, SELFPAY | PROVIDERS: PCP Family Medicine; Visit Provider Orthopaedic Surgery | DX: G56.02 Carpal tunnel syndrome, left upper limb (principal); G56.22 Lesion of ulnar nerve, left upper limb | CPT/HCPCS: 64718; 64721 ==

== ENCOUNTER 2023-06-23 08:38 | Outpatient (AMB) | payer OTHER, SELFPAY ==
--- NOTE | 2023-06-23 08:40 | A.OFFVIS_ITS ---
Intake Visit Reasons: PO-Lt CTR, Lt Cubital Release 06/10/23 Intake Note: Gautam 58 yr old male presents today for his PO visit for his left CTR & Left Cubital Release 06/10/[address] London. States symptoms have improved, he has mild numbness in his elbow still however states symptoms no longer wake him up at night, he is doing well over all. Sutures removed and steri strips applied. Allergies CRUSTACEANS Allergy (Intermediate, Uncoded 06/23/23 08:51) SWELLING/DIFF.BREATHING shrimp/crab/lobster Allergy (Unknown, Uncoded 06/23/23 08:51) facial swelling HPI HPI PO-Lt CTR, Lt Cubital Release 06/10/23: Details: Gautam is a 58 year old right hand dominant man who returns S/P left carpal tunnel & cubital tunnel release, DOS: 06/10/23. 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 He says he is doing well and his sensation is improving in all digits. He says he has good relief from his nighttime symptoms. He complains of numbness in his elbow, about his incision. He is overall very happy with the results of his surgery. He also has left basal joint OA & left SLAC wrist, which causes him pain, worse with pinching or gripping activities. He says his wrist pain has improved following his carpal tunnel release. [facility] Medical History Synovial cyst of popliteal space [Knight], right knee Spondylosis of cervical spine Syrinx of spinal cord BPH loc w urin obs/LUTS Interstitial cystitis BPH (benign prostatic hyperplasia) GERD (gastroesophageal reflux disease) Elevated cholesterol HTN (hypertension) Surgical History History of esophagogastroduodenoscopy (EGD) Hx of prostatectomy Hx of knee surgery History of nasal surgery H/O rotator cuff surgery Hx of cystoscopy Hx of colonoscopy Social History Comment: counts correct Patient Tobacco Use Status: Former Tobacco user Quit Date: 1989 Current occupational status: employed 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 Review of Systems Const All systems reviewed & are unremarkable except as noted in HPI and below Physical Exam Const General: no acute distress and alert Orientation/consciousness: patient oriented x3 Neuro General: patient oriented x3 Extrem Other: The patient was alert oriented and in no acute distress The incision is healing well with no erythema drainage or evidence of infection. Sutures removed and Steri-Strips applied He can make a fist and extend all his digits Sensation is improved and now normal to the tips of all digits of his left hand. He has some numbness just distal to the incision at the elbow Cap refill is brisk Nerve Conduction Study: IMPRESSION: 1. 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 2. Mild bilateral ulnar neuropathy across cubital tunnel. Jonathan Rosario MD 02/04/2023 Psych Appearance: grossly normal Affect: normal affect Attitude: cooperative Assessment & Plan Assessment & Plan (1) Left carpal tunnel syndrome: Code(s): G56.02 - Carpal tunnel syndrome, left upper limb Category: Medical (2) Cubital tunnel syndrome on left: Code(s): G56.22 - Lesion of ulnar nerve, left upper limb Category: Medical (3) Right carpal tunnel syndrome: Code(s): G56.01 - Carpal tunnel syndrome, right upper limb Category: Medical (4) Cubital tunnel syndrome on right: Code(s): G56.21 - Lesion of ulnar nerve, right upper limb Category: Medical (5) Osteoarthritis of carpometacarpal joint of left thumb: Code(s): M18.12 - Unilateral primary osteoarthritis of first carpometacarpal joint, left hand Category: Medical (6) Scapholunate advanced collapse of left wrist: Code(s): M19.132 - Post-traumatic osteoarthritis, left wrist Category: Medical (7) Foreign body of left wrist: Code(s): S60.852A - Superficial foreign body of left wrist, initial encounter Category: Medical Plan Assessment & Plan: 1. Left Carpal tunnel syndrome, S/P release DOS: 06/10/23 Pre-operative symptoms intermittent, but daily, worse at night Now with normal sensation and good relief of his nighttime symptoms 2. Left Cubital tunnel syndrome, S/P release DOS: 06/10/23 Pre-operative symptoms intermittent, but daily, worse at night Now with normal sensation and good relief of his nighttime symptoms The patient appears to be doing well post-operatively I educated him about the post-operative course I discussed activity modifications, he is to lift nothing heavier than a cellphone for the next two weeks He will perform gentle ROM exercises at home He should avoid any underwater activities for the next 5 days He should gently massage about the incision site to reduce the risk of hypersensitivity He was given a note for work to return on light duty with a 2lb weight limit for the next 2 weeks. He is returning to work today (06/23/23) He can follow up prn 3. Right Carpal tunnel syndrome, mild-moderate Symptoms intermittent, but daily, worse at night 4. Right Cubital tunnel syndrome, mild Symptoms intermittent, but daily, worse at night He will follow up to discuss treatment options prn I educated him about the risk of delaying treatment 5. Left basal joint arthritis, severe He can follow up prn to discuss this 6. Left scapholunate advanced collapse, early Primarily involving radioscaphoid joint at this point Wears a wrist brace when symptomatic. Talked about activity modification. May benefit from an injection in the future 7. Left wrist foreign body Measuring ~2-3 millimeters in diameter. There appears to be a small metallic foreign body in the superficial soft tissues of the volar aspect of his wrist Scribed for Swati London MD by Farhat Thompson medical technologist microbiology, on 06/23/23 at 9:10 AM, EST. Scribe Plan - Not visible on output: Scribed for Swati London MD by Farhat Thompson medical technologist microbiology, on [ ] at [ ], EST. Coding Level of Care Code Global (40952) Diagnoses Left carpal tunnel syndrome G56.02 Cubital tunnel syndrome on left G56.22 Right carpal tunnel syndrome G56.01 Cubital tunnel syndrome on right G56.21 Osteoarthritis of carpometacarpal joint of left thumb M18.12 Scapholunate advanced collapse of left wrist M19.132 Foreign body of left wrist S60.852A
== END 2023-06-23 09:17 | disposition home or self-care (01) ==
PROVIDERS: PCP Family Medicine; Visit Provider Orthopaedic Surgery
DX: G56.03 Carpal tunnel syndrome, bilateral upper limbs (principal); G56.23 Lesion of ulnar nerve, bilateral upper limbs; M18.12 Unilateral primary osteoarthritis of first carpometacarpal joint, left hand; M19.132 Post-traumatic osteoarthritis, left wrist; S60.852A Superficial foreign body of left wrist, initial encounter
CPT/HCPCS: 99024

== ENCOUNTER → 2023-06-23 08:38 | Outpatient (BNVA) | payer OTHER, SELFPAY | PROVIDERS: PCP Family Medicine; Visit Provider Orthopaedic Surgery ==

== ENCOUNTER 2023-06-30 08:59 | Outpatient (AMB) | payer OTHER, SELFPAY ==
--- NOTE | 2023-06-30 09:00 | A.OFFVIS_ITS ---
Vital Signs 06/30/23 09:06 Height 5 ft 9.5 in Weight 215 lb BMI 31.3 Intake Visit Reasons: ov-Follow up seen by neurosurgery for cervical S Intake Note: Gautam is a 58 year old male who presents today for a follow up of his cervical spine, Patient reports that Dr. Qureshi looked at his MRI and said that it is ok to proceed with treatment in Pysiatry He mentions that he had the ultrasound of the right knee for bakers cyst, he explains that he is having discomfort with this as he does squat frequently which ends up aggravating the knee. Allergies CRUSTACEANS Allergy (Intermediate, Uncoded 06/30/23 09:06) SWELLING/DIFF.BREATHING shrimp/crab/lobster Allergy (Unknown, Uncoded 06/30/23 09:06) facial swelling Medication List - Last Reconciled 06/30/23 by Jerri Diaz MD amlodipine 5 mg PO DAILY atenolol 50 mg PO DAILY atorvastatin 40 mg PO DAILY hoqryzbzbe-pmoiqmeceglsu-snkk 50-325-40 mg 1 tab PO Q4H PRN cyclobenzaprine 10 mg PO BEDTIME epinephrine IM hydrocortisone valerate 0.2% topical lisinopril 10 mg PO DAILY omeprazole 20 mg PO BID tadalafil (Cialis) 5 mg PO DAILY 90 days tizanidine 2 mg PO BID HPI Comments Details: Used to see Dr. Early for RTC surgery bilateral. Used to see Dr. Borrero for the neck pain. Told to have arthritis, that would have been more than 5-7 years ago. Believe he had an MRI, but also at least 5 y ears ago. Had several PT without much relief. In 1991, had injury upper and lower back, groin pull. Has had other work injuries that affected neck, caused ROM difficulties then. Had several PT without much relief. Had myofascial therapy and facet pain. Most recently, maybe 2 years ago, went to [facility] for cervical injections, without relief. [place] at that time to be muscle related. He said no repeat MRIs were done at [facility]. Also had chiropractor and massage therapies. Uses TENS unit and does do own exercises. He gets headache, and he thinks it could be related to tension and muscle. Takes butalbital. He then got trigger point injections from [facility] which he thinks irritated it even more, maybe a year ago. He thinks the numbness on the hands came from the trigger point injections. Posterior neck pain, radiates to trapezius, but not lower than shoulder. Points more to right side, says it is unusual for that to radiate that low. Would self massage the paraspinals and traps with some relief. Hears crunching. Numbness seems to be a separate issue, coming from CTS and UNE. Since last seen: Left CTR & Left Cubital Release 06/10/[address] [place] Has seen Dr. Qureshi - no indication for surgery of syrinx. Having neck pain today. Been mild lately, had something to do with how he slept with hands (CTS), so after the surgery for CTS had been mild and helped for past 2-3 weeks. Now he sleeps with left side, shoulder crunched up, attributed with stress/anxiety and dreaming. Currently aching on right lateral neck. If he leaves it at this, could go into tension headache or migraine. Hand numbness is resolved. US showed knight's cyst - He thinks this is smaller. But it did aggravate he had CTS surgery. Knee felt itself swollen. Now is not bad . [facility] Medical History Synovial cyst of popliteal space [Knight], right knee Spondylosis of cervical spine Syrinx of spinal cord BPH loc w urin obs/LUTS Interstitial cystitis BPH (benign prostatic hyperplasia) GERD (gastroesophageal reflux disease) Elevated cholesterol HTN (hypertension) Surgical History History of esophagogastroduodenoscopy (EGD) Hx of prostatectomy Hx of knee surgery History of nasal surgery H/O rotator cuff surgery Hx of cystoscopy Hx of colonoscopy Social History Comment: counts correct Patient Tobacco Use Status: Former Tobacco user Quit Date: 1989 Current occupational status: employed 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 Physical Exam Vital Signs: BMI result Body Mass Index 31.3 Constitutional: Patient appears to be in no acute distress, well nourished and well developed. Patient was appropriately conversant and oriented. Good historian. MSK: Inspection reveals appropriate head and neck positioning. Tender on cervical paraspinals and facets. Trapezius and rhomboids were not tight or tender. Cervical ROM was full. Spurling's sign negative. No scapular winging. Bilateral shoulder, elbow and wrist ROM WNL. No ligamentous laxity or crepitance. No increased effusion. Right medial posterior Knight cyst still palpable. No anterior knee pain, no medial or lateral joint line tenderness. No effusion. Negative pain on varus or valgus stress. Negative Brenda's sign. Strength is 5/5 in all muscle groups tested. No increased tone noted. Neurological: Neurologic examination of the upper and lower extremities was nonfocal with intact sensation, muscle stretch reflexes and without focal motor deficits . Coyle?s negative bilaterally. Babinski was down going bilaterally. Clonus was negative. Gait is non-antalgic without loss of balance. Results Reviewed Results Reviewed: Ordering Physician: Jerri Cruz Date of Service: 03/15/23 Procedure(s): MR cervical spine wo con Accession Number(s): [id number] cc: Kim Higuera DO; Jerri Cruz~ EXAMINATION: MR CERVICAL SPINE WITHOUT CONTRAST CLINICAL INFORMATION: Radiculopathy. Neck pain. COMPARISON: X-ray dated 03/10/2023. TECHNIQUE: Multiplanar, multisequential imaging of the cervical spine was performed without contrast. Limited study with motion artifacts. FINDINGS: VERTEBRAL BODIES AND PARASPINAL SOFT TISSUES: There are mixed chronic and mild edematous endplate changes with significant disc space narrowing at the C4-C5 and C5-C6 levels. The marrow signal is within normal limits. There is a mild leftward curvature of the cervical spine. Mild posterior subluxations evident at multiple levels from the C3 through the C6 levels. There is severe loss of disc height as well at the C3-C4 and C6-C7 levels. The vertebral artery flow-voids are maintained. The paraspinal soft tissues are normal. The imaged portions of the lungs are grossly clear. CERVICOMEDULLARY JUNCTION AND VISUALIZED POSTERIOR FOSSA: The craniovertebral junction and imaged portions of the brain parenchyma appear normal. There is a small 7 x 4 mm syrinx in the right paramedian aspect of the cord at the C6 level. No additional cord signal abnormality is seen. SPINAL LEVELS: C2-C3: No significant disc pathology. No central canal stenosis or foraminal narrowing. C3-C4: Significant loss of disc height with a shallow, broad-based disc-osteophyte complex mildly impressing upon the ventral thecal sac. Severe bilateral foraminal encroachment without central canal stenosis. C4-C5: Retrosubluxation and disc-osteophyte complex result in mict-sr-akfhttub central canal stenosis and severe bilateral foraminal encroachment. C5-C6: Disc-osteophyte complex with lbhycmcw-nk-qxwjkz foraminal narrowing, worse on the right side. No central canal stenosis. C6-C7: Mild disc-osteophyte complex with a small left subarticular zone disc extrusion. No central canal stenosis. Severe bilateral foraminal narrowing. C7-T1: No disc pathology. No central canal stenosis or foraminal narrowing. Severe facet arthropathy, worse on the right side. MR/MR cervical spine wo con IMPRESSION: 1. Limited study with motion artifacts. ? 2. Moderate multilevel cervical spondylosis with megp-ai-gsbkvcux central canal stenosis at the C4-C5 level. Significant multilevel foraminal narrowing due to disc-osteophyte complexes. Small left subarticular zone disc extrusion at the C6-C7 level. ? 3. Focal 7 x 4 mm syrinx in the right paramedian aspect of the cord at the C6 level. Assessment & Plan Assessment & Plan (1) Cervicogenic headache: Code(s): G44.86 - Cervicogenic headache Category: Medical (2) Spondylosis of cervical spine: Code(s): M47.812 - Spondylosis without myelopathy or radiculopathy, cervical region Category: Medical (3) Synovial cyst of popliteal space [Knight], right knee: Code(s): M71.21 - Synovial cyst of popliteal space [Knight], right knee Category: Medical Plan MRI shows syrinx at C6 level. Dr. Chapin has seen him, endorsed no need for surgical management. His symptoms are consistent with cervicogenic headache, which I believe stems from cervical facets. We discussed possible MBB and radiofrequency ablation, therefore will refer him to pain management. Complex right Knight's cyst, still thereafter several months. This is usually nonsurgical. Hopefully it will spontaneously resolve. Assessment and plan discussed with patient, and patient was agreeable. All questions were answered thoroughly. Total of 45 minute spent today including chart review, results review, history taking, physical examination, discussion of assessment and plan, and coordination of care. [ ] Jerri Diaz MD, GANESH Board Certified, [place] [employer] and Rehabilitation (ABPMR) Board Certified, [place] [employer] Electrodiagnostic [employer] (ABEM) Orders: Referrals Pain Management Referral G44.86 - Cervicogenic headache, M47.812 - Spondylosis without myelopathy or radiculopathy, cervical region, M71.21 - Synovial cyst of popliteal space [Knight], right knee Coding Level of Care Code Est Pt Level 4 (86896) Diagnoses Cervicogenic headache G44.86 Spondylosis of cervical spine M47.812 Synovial cyst of popliteal space [Knight], right knee M71.21
[2023-06-30 09:06] VITALS: BMI 31.3
== END 2023-06-30 09:29 | disposition home or self-care (01) ==
PROVIDERS: PCP Family Medicine; Visit Provider Physical Medicine & Rehabilitation
DX: G44.86 Cervicogenic headache (principal); M47.812 Spondylosis without myelopathy or radiculopathy, cervical region; M71.21 Synovial cyst of popliteal space [Baker], right knee
CPT/HCPCS: 99214

== ENCOUNTER → 2023-06-30 08:59 | Outpatient (BNVA) | payer OTHER, SELFPAY | PROVIDERS: PCP Family Medicine; Visit Provider Physical Medicine & Rehabilitation ==

== ENCOUNTER 2023-07-21 08:20 | Outpatient (AMB) | payer OTHER, SELFPAY ==
--- NOTE | 2023-07-21 08:21 | A.OFFVIS_ITS ---
Vital Signs 07/21/23 08:37 Height 5 ft 9.5 in Weight 214 lb BMI 31.1 BP 129/95 H Blood Pressure Location Lt brachial Position Sitting Respiration 14 Pulse 72 Pulse Source Pulse Oximeter Pulse Oximetry (%) 97 Oxygen Delivery Method Room Air Intake Visit Reasons: Cervicogenic Headache Allergies CRUSTACEANS Allergy (Intermediate, Uncoded 07/21/23 08:40) SWELLING/DIFF.BREATHING shrimp/crab/lobster Allergy (Unknown, Uncoded 07/21/23 08:40) facial swelling Medication List - Last Reconciled 07/21/23 by La Leone LPN amlodipine 5 mg PO DAILY atenolol 50 mg PO DAILY atorvastatin 40 mg PO DAILY lygmfuvpzw-sbbivcpfimitt-qjok 50-325-40 mg 1 tab PO Q4H PRN cyclobenzaprine 10 mg PO BEDTIME epinephrine IM hydrocortisone valerate 0.2% topical lisinopril 10 mg PO DAILY omeprazole 20 mg PO BID tadalafil (Cialis) 5 mg PO DAILY 90 days tizanidine 2 mg PO BID HPI HPI Cervicogenic Headache: Details: 58-year-old male who presents today to the office for evaluation of cervicogenic headache. He has been complaining of persistent neck pain for a few weeks now. He admits to having a lot of stress over the years that contributes to shoulder tightness. He states the present pain can relate it back to an incident that happened in the mid-, where he injured his mid back. He admits to having a lot of arthritis in his joints and it makes ?crunching and cracking? sounds, which he can hear at times. He takes Tylenol to help with the pain, which helps some. He also takes butalbital for the migraines. He was referred to us by Dr. Cruz for consideration of spine injections. He sits in a recliner while watching television and self massages the neck, which keeps the pain in control. He thinks the pain radiates to the arms occasionally, but mostly is limited to the shoulders and radiates up towards the occipital. He underwent surgery for the rotator cuffs in the past. He sleeps on the sides in certain positions as he has carpal tunnel. He usually sleeps about 3 hours a night. He has a history of prostate cancer and is status post prostatectomy. He states the pain scale is variable. It is mostly described as an aching sensation in his axial neck radiating up towards the occiput. He denies any radiating symptoms down his arms. Over the years, he has had multiple rounds of physical therapy with limited relief. He has also had what sounds like facet injections with a prior spine doctor, which were not very helpful. [facility] Medical History Synovial cyst of popliteal space [Knight], right knee Spondylosis of cervical spine Syrinx of spinal cord BPH loc w urin obs/LUTS Interstitial cystitis BPH (benign prostatic hyperplasia) GERD (gastroesophageal reflux disease) Elevated cholesterol HTN (hypertension) Surgical History History of esophagogastroduodenoscopy (EGD) Hx of prostatectomy Hx of knee surgery History of nasal surgery H/O rotator cuff surgery Hx of cystoscopy Hx of colonoscopy Social History Comment: counts correct Patient Tobacco Use Status: Former Tobacco user Current occupational status: employed 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 Review of Systems Const All systems reviewed & are unremarkable except as noted in HPI and below Physical Exam Vital Signs: Last Vital Signs Pulse 72 07/21/23 08:37 Resp 14 07/21/23 08:37 BP 129/95 H 07/21/23 08:37 Pulse Ox 97 07/21/23 08:37 Oxygen Delivery Method Room Air 07/21/23 08:37 BMI result Body Mass Index 31.1 General: Appears afebrile. Alert and oriented. Mood and affect appropriate. Follows and participates in conversation appropriately. Respiratory effort is unlabored. Able to transition from sit to stand unassisted. Neck: Facet loading on both sides reproduces discomfort in the axial neck. Cervical flexion does not reproduce pain. Cervical range of motion reproduces discomfort radiating up towards the occipital region. Results Reviewed Results Reviewed: 03/15/23: MR CERVICAL SPINE WITHOUT CONTRAST FINDINGS: VERTEBRAL BODIES AND PARASPINAL SOFT TISSUES: There are mixed chronic and mild edematous endplate changes with significant disc space narrowing at the C4-C5 and C5-C6 levels. The marrow signal is within normal limits. There is a mild leftward curvature of the cervical spine. Mild posterior subluxations evident at multiple levels from the C3 through the C6 levels. There is severe loss of disc height as well at the C3-C4 and C6-C7 levels. The vertebral artery flow-voids are maintained. The paraspinal soft tissues are normal. The imaged portions of the lungs are grossly clear. CERVICOMEDULLARY JUNCTION AND VISUALIZED POSTERIOR FOSSA: The craniovertebral junction and imaged portions of the brain parenchyma appear normal. There is a small 7 x 4 mm syrinx in the right paramedian aspect of the cord at the C6 level. No additional cord signal abnormality is seen. SPINAL LEVELS: C2-C3: No significant disc pathology. No central canal stenosis or foraminal narrowing. C3-C4: Significant loss of disc height with a shallow, broad-based disc- osteophyte complex mildly impressing upon the ventral thecal sac. Severe bilateral foraminal encroachment without central canal stenosis. C4-C5: Retrosubluxation and disc-osteophyte complex result in aqqk-nh-yedknmws central canal stenosis and severe bilateral foraminal encroachment. C5-C6: Disc-osteophyte complex with hmavqzkd-kz-skygjy foraminal narrowing, worse on the right side. No central canal stenosis. C6-C7: Mild disc-osteophyte complex with a small left subarticular zone disc extrusion. No central canal stenosis. Severe bilateral foraminal narrowing. C7-T1: No disc pathology. No central canal stenosis or foraminal narrowing. Severe facet arthropathy, worse on the right side. IMPRESSION: 1. Limited study with motion artifacts. 2. Moderate multilevel cervical spondylosis with nejj-eh-pqxkzjka central canal stenosis at the C4-C5 level. Significant multilevel foraminal narrowing due to disc-osteophyte complexes. Small left subarticular zone disc extrusion at the C6-C7 level. 3. Focal 7 x 4 mm syrinx in the right paramedian aspect of the cord at the C6 level. Assessment & Plan Assessment & Plan (1) Cervicogenic headache: Code(s): G44.86 - Cervicogenic headache Category: Medical (2) Cervical radiculitis: Code(s): M54.12 - Radiculopathy, cervical region Category: Medical (3) Spondylosis of cervical spine: Code(s): M47.812 - Spondylosis without myelopathy or radiculopathy, cervical region Category: Medical Plan I believe his symptoms of axial neck and occipital headaches are secondary to cervical foraminal stenosis in the high cervical C3-4 region, which also explains his absence of arm symptoms and a lack of response to facet blocks. I will plan on a cervical epidural steroid injection to start off at the C6-7 level and see if that makes a difference to his symptoms secondary to foraminal stenosis. If this is not helpful, we can consider temporary nerve stimulation of the medial branch nerves as well as the third occipital nerve for cervicogenic headaches. Patient expressed understanding and is in agreement with the plan. Discussed the risks and benefits of the procedure with the patient in detail. All questions were answered. The patient is on board with the plan. Justification for interventional therapy: ? Patient with average pain > 6/10 ? Patient has exhausted oral medication, physical therapy, massage therapy and acupuncture Scribed for Dr. Da Silva by Adriel Rodriguez, medical front desk specialist, on 06/20/2023. I, Dr. Da Silva, have personally reviewed and agree with the information entered by the scribe. Coding Level of Care Code New Pt Level 4 (77878) Diagnoses Cervicogenic headache G44.86 Cervical radiculitis M54.12 Spondylosis of cervical spine M47.812
[2023-07-21 08:37] VITALS: BP 129/95; PULSE 72; RESP 14; O2SAT 97; BMI 31.1
== END 2023-07-21 09:08 | disposition home or self-care (01) ==
PROVIDERS: PCP Family Medicine; Visit Provider Internal Medicine
DX: G44.86 Cervicogenic headache (principal); M54.12 Radiculopathy, cervical region; M47.812 Spondylosis without myelopathy or radiculopathy, cervical region
CPT/HCPCS: 99204

== ENCOUNTER → 2023-07-21 08:20 | Outpatient (BNVA) | payer OTHER, SELFPAY | PROVIDERS: PCP Family Medicine; Visit Provider Internal Medicine ==

== ENCOUNTER 2023-07-23 07:04 | Outpatient (REF) | payer OTHER, SELFPAY ==
[2023-07-23 10:52] LABS: Estimated Average Glucose 131 mg/dL; Hemoglobin A1c % 6.2 % (<6.0)
[2023-07-23 11:07] LABS: Alanine Aminotransferase 18 U/L (0-40); Albumin Level 4.2 g/dL (3.5-5.0); Alkaline Phosphatase 56 U/L (39-117); Anion Gap 10 (12-20); Aspartate Amino Transferase 21 U/L (5-37); Bilirubin Total 0.8 mg/dL (0.0-1.0); Blood Urea Nitrogen 18 mg/dL (9-16); Calcium 9.3 mg/dL (8.4-10.2); Carbon Dioxide 25 mmol/L (22-29); Chloride 108 mmol/L (96-108); Cholesterol 175 mg/dL (<200); Estimated Glomerular Filt Rate > 60; Glucose Random 131 mg/dL (60-115); HDL Cholesterol 46 mg/dL (>40); LDL Cholesterol Calculated 102 mg/dL (<100); Potassium 3.9 mmol/L (3.3-5.1); Sodium 139 mmol/L (135-145); Total Protein 6.9 g/dL (6.5-8.0); Triglycerides 137 mg/dL (<150)
[2023-07-23 11:21] LABS: Prostate Specific Antigen < 0.10 ng/mL (<0.05-4.0)
== END 2023-07-23 07:05 | disposition home or self-care (01) ==
LOC: HO.HMGCLDS 07:04
PROVIDERS: PCP Family Medicine; Referring Provider Urology; Visit Provider Family Medicine
DX: C61 Malignant neoplasm of prostate (principal); Z12.5 Encounter for screening for malignant neoplasm of prostate; Z13.1 Encounter for screening for diabetes mellitus; Z13.220 Encounter for screening for lipoid disorders
CPT/HCPCS: 36415; 80053; 80061; 83036; 84153

== ENCOUNTER 2023-08-10 08:31 | Outpatient (AMB) | payer OTHER, SELFPAY ==
--- NOTE | 2023-08-10 08:39 | MHC.OFFVIS ---
Intake Visit Reasons: 3M PSA(Set) Intake Note: Patient is Present for Telephone Follow Up PSA Urology Med: Cialis (Patient need 90 days refill) Antibiotic Allergy: None Blood Thinner: None Personal Investment Adviser Required: No Allergies CRUSTACEANS Allergy (Intermediate, Uncoded 08/10/23 08:40) SWELLING/DIFF.BREATHING shrimp/crab/lobster Allergy (Unknown, Uncoded 08/10/23 08:40) facial swelling HPI Comments Details: Gautam is a pleasant male. He is a patient of Dr. Higuera. He seen for the following urologic conditions - elevated PSA - prostate cancer Telemedicine Evaluation 15 min Consultation ArticleAlley Jose M Video First year anniversary from procedure PSA remains low Leakage - well controlled Has erections sufficient for intercourse with PDE5 PSA - 02/06 <0.1, 05/08 <0.1, 08/08 <0.1 Continue three-month follow-up for next year Prostate cancer -grade group 5, high-volume 05/07 - [facility] 09/[address] Enriquez 05/07 for PSA 7.1 with free PSA 18% Initial therapy robotic prostatectomy Dr Cowart [facility] 09/06 - genetics negative Clinical T1c, TRUS prostate size 35 g Histologic type: Adenocarcinoma, acinar type Manuela score: 9 (4+5) (left base lateral, left base medial, left mid lateral,left mid medial, left apex lateral, and left apex medial), 7 (3+4) (right base medial), 6 (3+3) (right base lateral) Tumor quantitation: Number cores positive: 8 Total number of cores: 15 - % of tissue involved: 44 % - 640/1600 Periprostatic fat inv.: Not identified Seminal vesicle inv.: Not identified Perineural inv.: Present Lymphovascular invasion: Not identified Staging - 06/07 [facility] PET-CT - isolated left side prostate activity - 06/07 MRI - multiple prostate lesions PiRADs 5 with apparent SHERRY to involve neurovascular bundles, no evidence for seminal vesicle involvement [facility] Medical History (Updated 08/10/23 @ 09:10 by Mario Enriquez MD) Elevated PSA Synovial cyst of popliteal space [Knight], right knee Spondylosis of cervical spine Syrinx of spinal cord BPH loc w urin obs/LUTS Interstitial cystitis BPH (benign prostatic hyperplasia) GERD (gastroesophageal reflux disease) Elevated cholesterol HTN (hypertension) Surgical History History of esophagogastroduodenoscopy (EGD) Hx of prostatectomy Hx of knee surgery History of nasal surgery H/O rotator cuff surgery Hx of cystoscopy Hx of colonoscopy Social History Comment: counts correct Patient Tobacco Use Status: Former Tobacco user Current occupational status: employed 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 Review of Systems Const All systems reviewed & are unremarkable except as noted in HPI and below Reports no additional complaints Resp Reports no additional complaints GI Reports no additional complaints Reports as per HPI Musc Reports no additional complaints Physical Exam Telemedicine evaluation Appropriate responses Regular breathing rate and rhythm HEENT Head: Yes normal to inspection Ears: hearing grossly normal bilaterally Eyes General: appearance normal, both eyes and all related structures Neck Neck: Yes normal visual inspection Chest Chest palpation & inspection: normal inspection of the chest Resp Effort & Inspection: normal respiratory effort and able to speak in complete sentences Telehealth Telehealth Telehealth Platform: ArticleAlley Location of provider rendering services: practice address Location of patient: address on file Patient Identification confirmed using: Name, : Yes Telehealth method: video Patient verbally consented to treatment: Yes Patient verbally consented to billing insurance company: Yes Patient informed of any privacy concerns related to visit: Yes Minutes spent on Phone/Video with Pt.: 15 Assessment & Plan Assessment & Plan (1) Interstitial cystitis: Code(s): N30.10 - Interstitial cystitis (chronic) without hematuria Category: Medical (2) Prostate cancer: Comment: 05/07 high-grade, high-volume Code(s): C61 - Malignant neoplasm of prostate Category: Medical (3) Erectile dysfunction after radical prostatectomy: Code(s): N52.31 - Erectile dysfunction following radical prostatectomy Category: Medical Plan Three-month follow-up office PSA Orders: Orders Prostate Specific Antigen 3 Months C61 - Malignant neoplasm of prostate Medications: Refilled tadalafil (Cialis) 5 mg PO DAILY 90 tabs 1RF 90 days Patient Instructions: Imaging studies, laboratory and physical exam results were discussed and reviewed in detail. No major barriers to patient understanding were identified. An opportunity to ask questions regarding the treatment plan was provided. All questions were answered. The patient expressed understanding and agreement with the above treatment plan. The patient is aware they should contact our office by phone for worsening of their current condition or the appearance of new urologic symptoms. Compliance is encouraged with any medications and followup testing that is ordered. It is a privilege to participate in the urologic care of your patient. If you have any questions or concerns regarding treatment for the above conditions, or other urologic issues, please do not hesitate to contact me. The office telephone contact is [phone]. This note is constructed using voice recognition software. While every effort has been made to ensure accuracy informatics spec errors may have been included. Yours sincerely, Dr Mario Enriquez MD, GANESH [facility] Urology Providers of Expert, Compassionate Care for the Genitourinary System Coding Level of Care Code Tele Est Pt Level 3 (12646) Diagnoses Interstitial cystitis N30.10 Prostate cancer C61 Erectile dysfunction after radical prostatectomy N52.31
== END 2023-08-10 09:36 | disposition home or self-care (01) ==
LOC: HO.HUSH 08:31
PROVIDERS: PCP Family Medicine; Visit Provider Urology
DX: C61 Malignant neoplasm of prostate (principal); N30.10 Interstitial cystitis (chronic) without hematuria; N52.31 Erectile dysfunction following radical prostatectomy
CPT/HCPCS: 99213

== ENCOUNTER → 2023-08-10 08:31 | Outpatient (BNVA) | payer OTHER, SELFPAY | PROVIDERS: PCP Family Medicine; Visit Provider Urology ==

== ENCOUNTER → 2023-10-04 07:44 | Outpatient (BNVA) | payer SELFPAY | PROVIDERS: PCP Family Medicine; Visit Provider Internal Medicine | DX: Z02.79 Encounter for issue of other medical certificate (principal) ==

== ENCOUNTER 2023-11-04 07:08 | Outpatient (REF) | payer OTHER, SELFPAY ==
[2023-11-04 11:06] LABS: Prostate Specific Antigen < 0.10 ng/mL (<0.05-4.0)
== END 2023-11-04 07:09 | disposition home or self-care (01) ==
LOC: HO.HMGCLDS 07:08
PROVIDERS: PCP Family Medicine; Visit Provider Urology
DX: C61 Malignant neoplasm of prostate (principal); Z12.5 Encounter for screening for malignant neoplasm of prostate
CPT/HCPCS: 36415; 84153

== ENCOUNTER 2023-11-09 10:56 | Outpatient (AMB) | payer OTHER, SELFPAY ==
--- NOTE | 2023-11-09 10:59 | A.OFFVIS_ITS ---
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 He is a patient of Dr. Higuera. He seen for the following urologic conditions - elevated PSA - prostate cancer PSA remains low Leakage - well controlled Has erections sufficient for intercourse with PDE5 PSA - 02/06 <0.1, 05/08 <0.1, 08/08 <0.1, 11/08 <0.1 Continue three-month follow-up for next year Prostate cancer -grade group 5, high-volume 05/07 - RALP 09/[address] Enriquez 05/07 for PSA 7.1 with free PSA 18% Initial therapy robotic prostatectomy Dr Cowart [facility] 09/06 - genetics negative Clinical T1c, TRUS prostate size 35 g Histologic type: Adenocarcinoma, acinar type Manuela score: 9 (4+5) (left base lateral, left base medial, left mid lateral,left mid medial, left apex lateral, and left apex medial), 7 (3+4) (right base medial), 6 (3+3) (right base lateral) Tumor quantitation: Number cores positive: 8 Total number of cores: 15 - % of tissue involved: 44 % - 640/1600 Periprostatic fat inv.: Not identified Seminal vesicle inv.: Not identified Perineural inv.: Present Lymphovascular invasion: Not identified Staging - 06/07 PSMA PET-CT - isolated left side prostate activity - 06/07 MRI - multiple prostate lesions PiRADs 5 with apparent SHERRY to involve neurovascular bundles, no evidence for seminal vesicle involvement PFSH Medical History (Updated 08/10/23 @ 09:10 by Mario Enriquez MD) Elevated PSA Synovial cyst of popliteal space [Knight], right knee Spondylosis of cervical spine Syrinx of spinal cord BPH loc w urin obs/LUTS Interstitial cystitis BPH (benign prostatic hyperplasia) GERD (gastroesophageal reflux disease) Elevated cholesterol HTN (hypertension) Surgical History History of esophagogastroduodenoscopy (EGD) Hx of prostatectomy Hx of knee surgery History of nasal surgery H/O rotator cuff surgery Hx of cystoscopy Hx of colonoscopy Social History Comment: counts correct Patient Tobacco Use Status: Former Tobacco user Current occupational status: employed 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 Review of Systems Const Denies chills and Denies fever(s) Card Reports no additional complaints and Denies syncope Resp Denies cough GI Denies abdominal pain and Denies heartburn Reports as per HPI and Denies change in libido Neuro Denies syncope Psych Denies change in libido Endo Denies change in libido Physical Exam Const General: cooperative, healthy appearing, comfortable and no acute distress Orientation/consciousness: patient oriented x3 HEENT Face and sinus: Yes normal facial exam Mouth: moist mucous membranes Neck Neck: Yes normal visual inspection, Yes full ROM and Yes trachea midline Chest Chest palpation & inspection: normal inspection of the chest Resp Effort & Inspection: normal respiratory effort, able to speak in complete sentences and no respiratory distress GI Inspection: Yes normal to inspection Back/Spine/Pelvis Cervical Spine: normal cervical lordosis Thoracic/Lumbar Spine: thoracic and lumbar spine normal to inspection Skin General skin exam: no rashes or lesions noted Neuro General: patient oriented x3, gait normal, tone normal and moves all extremities Extrem General: Yes normal to inspection and Yes capillary refill normal Results AMB Urinalysis, Automated UA Leukoctes 0 Teo/uL Last Edit by EVELYN Kerr on 11/09/23 11:07 UA Nitrite Negative Last Edit by EVELYN Kerr on 11/09/23 11:07 UA Urobilinogen 0.2 mg/dL Last Edit by EVELYN Kerr on 11/09/23 11:0 7 UA Protein 0 mg/dL Last Edit by EVELYN Kerr on 11/09/23 11:07 UA pH 6.0 Last Edit by EVELYN Kerr on 11/09/23 11:07 UA Blood 0 Meek/uL Last Edit by EVELYN Kerr on 11/09/23 11:07 UA Specific [place] 1.020 Last Edit by EVELYN Kerr on 11/09/23 11: 07 UA Ketone Negative Last Edit by EVELYN Kerr on 11/09/23 11:07 UA Bilirubin 0 mg/dL Last Edit by EVELYN Kerr on 11/09/23 11:07 UA Glucose 0 mg/dL Last Edit by EVELYN Kerr on 11/09/23 11:07 Results Reviewed Results Reviewed: Laboratory Last Values Urine pH (Auto) 6.0 11/09/23 11:07 Specific [place] (Auto) 1.020 11/09/23 11:07 Urine Protein (Auto) 0 mg/dL 11/09/23 11:07 Glucose (UA)(Auto) 0 mg/dL 11/09/23 11:07 Urine Ketones (Auto) Negative 11/09/23 11:07 Urine Blood (Auto) 0 Meek/uL 11/09/23 11:07 Urine Nitrite (Auto) Negative 11/09/23 11:07 Urine Bilirubin (Auto) 0 mg/dL 11/09/23 11:07 Urine Urobilinogen (Auto) 0.2 mg/dL 11/09/23 11:07 Leukocyte Esterase (Auto) 0 Teo/uL 11/09/23 11:07 Assessment & Plan Assessment & Plan (1) BPH loc w urin obs/LUTS: Code(s): N40.1 - Benign prostatic hyperplasia with lower urinary tract symptoms Category: Medical (2) Prostate cancer: Comment: 05/07 high-grade, high-volume Code(s): C61 - Malignant neoplasm of prostate Category: Medical (3) Erectile dysfunction after radical prostatectomy: Code(s): N52.31 - Erectile dysfunction following radical prostatectomy Category: Medical Plan Continue to follow PSA Tadalafil refill Orders: Orders AMB Urinalysis Automated 11/09/23 Z13.9 - Encounter for screening, unspecified Prostate Specific Antigen 4 Months C61 - Malignant neoplasm of prostate Medications: Refilled tadalafil (Cialis) 5 mg PO DAILY 90 tabs 1RF 90 days Patient Instructions: Imaging studies, laboratory and physical exam results were discussed and reviewed in detail. No major barriers to patient understanding were identified. An opportunity to ask questions regarding the treatment plan was provided. All questions were answered. The patient expressed understanding and agreement with the above treatment plan. The patient is aware they should contact our office by phone for worsening of their current condition or the appearance of new urologic symptoms. Compliance is encouraged with any medications and followup testing that is ordered. It is a privilege to participate in the urologic care of your patient. If you have any questions or concerns regarding treatment for the above conditions, or other urologic issues, please do not hesitate to contact me. The office telephone contact is [phone]. This note is constructed using voice recognition software. While every effort has been made to ensure accuracy engraving patternmaker errors may have been included. Yours sincerely, Dr Mario Enriquez MD, [facility] - Urology Providers of Expert, Compassionate Care for the Genitourinary System Coding Level of Care Code Est Pt Level 3 (94753) Diagnoses BPH loc w urin obs/LUTS N40.1 Prostate cancer C61 Erectile dysfunction after radical prostatectomy N52.31
== END 2023-11-09 12:10 | disposition home or self-care (01) ==
PROVIDERS: PCP Family Medicine; Visit Provider Urology
DX: N40.1 Benign prostatic hyperplasia with lower urinary tract symptoms (principal); C61 Malignant neoplasm of prostate; N52.31 Erectile dysfunction following radical prostatectomy
CPT/HCPCS: 99213

== ENCOUNTER → 2023-11-09 10:56 | Outpatient (BNVA) | payer OTHER, SELFPAY | PROVIDERS: PCP Family Medicine; Visit Provider Urology | DX: N40.1 Benign prostatic hyperplasia with lower urinary tract symptoms (principal); N13.8 Other obstructive and reflux uropathy; C61 Malignant neoplasm of prostate; N52.31 Erectile dysfunction following radical prostatectomy | CPT/HCPCS: 81003 ==

== ENCOUNTER 2024-01-27 07:06 | Outpatient (REF) | payer OTHER, SELFPAY ==
--- OUTSIDE RECORDS SUMMARY | 2024-01-27 07:09 | XMS_ITS ---
Author Organization [facility] Address [address] [place] [address] Care Team Providers Care Adolescent Specialist Name Role Phone Kim Higuera Primary Care Provider Ky Kidd [phone] Encounters Encounter Location Date Provider Diagnosis [facility] [address] [place] [address] 05/27/2023 Ky Beasley Plan Of Treatment No Information Progress Notes * Gautam DAVIS PDOB: (58 yo M)Acc No.[id number]:05/27/2023 Patient:?Gautam Davis :1965???Age:58 Y???Sex:Male Address:[address] [place] [address] [place] [address] * true * Date:? Generated for Printi sumanth/Benedicto/eTransmitting on:?01/27/2024 07:09 AM EST
--- OUTSIDE RECORDS SUMMARY | 2024-01-27 07:09 | XMS_ITS ---
Author Organization [facility] Address [address] [place] [address] Care Team Providers Care Street Light Mechanic Name Role Phone Quincy Higueraistin Primary Care Provider Ky Kidd Unavailable [phone] Allergies Allergen (clinical drug ingredient) Drug/Non Drug Allergy documented on EMR Reaction Allergy Type Onset Date Status shrimp/shell fish (uncoded) Unknown Allergy Active REASON FOR VISIT Pcp- 06/08, Foot pain Medications Medication SIG (Take, Route, Frequency, Duration) Notes Start Date End Date Status diphenhydrAMINE HCl Not-Taking Lipitor 40 MG Orally Not-Ta tavo Fioricet 50-300-40 MG Orally Not-Taking Atenolol 50 MG Orally Activ e Lisinopril 5 MG Orally Acti ve Custom Orthotics as directed A ctive Lisinopril Not-Takin g Phqttpmygq-QHQL-Wyoskvik Active Atorvastatin Calcium 40 MG 1 tablet Oral ly Once a day Active Cialis 5 MG 1 tablet as needed Orally Once a day Active Flexeril PRN Not-Taking Aleve 220 MG 1 tablet as needed Orally every 12 hrs Not-Taking Elmiron Not-Taking Benadryl 25 MG Orally Not-T aking Custom Orthotics as directed N ot-Taking Social History Tobacco Use: Social History Observation Description Date Details (start date - stop date) Former Smoker NA - NA Tobacco Use/Smoking Question Answer Notes Are you a: former smoker When did you stop smoking? 1989 Additional Findings: Tobacco Non-User Current no n-smoker Alcohol Screen Question Answer Notes Did you have a drink contain ing alcohol in the past year? Yes How often did you have a dri nk containing alcohol in the past year? Monthly or less (1 point) Points 1 Interpretation Negative Vital Signs Height 5ft 9.5in in 05/27/2023 Weight 212 lbs 05/27/2023 BMI 30.85 kg/m2 05/27/2023 Blood pressure systolic 120 mm Hg 05/27/19 24 Blood pressure diastolic 80 mm Hg 024 Encounters Encounter Location Date Provider Diagnosis [facility] [address] [address] 05/27/2023 Ky Beasley Pain in left foot M79.672 ; Pain in right foot M79.671 ; Other hammer toe(s) (acquired), left foot M20.42 ; Other hammer toe(s) (acquired), right foot M20.41 ; Metatarsalgia, left foot M77.42 and Metatarsalgia, right foot M77.41 Assessments Encounter Date Diagnosis (ICD Code) Assessment Notes Treatment Notes Treatment Clinical Notes Section Notes 05/27/2023 Pain in left foot (ICD-10 - M79.672) 05/27/2023 Pain in right foot (ICD-10 - M79.671) 05/27/2023 Other hammer toe(s) (acquired), left foot (ICD-10 - M20.42) 05/27/2023 Other hammer toe(s) (acquired), right foot (ICD-10 - M20.41) 05/27/2023 Metatarsalgia, left foot (ICD-10 - M77.42) 05/27/2023 Metatarsalgia, right foot (ICD-10 - M77.41) Plan Of Treatment Medication Medication Name Sig Start Date Stop Date Notes Custom Orthotics as directed Pending Test Test Name Order Date X ray : Foot, left 3V 05/27/2023 X ray : Foot, right 3V 05/27/2023 Next Appt Details Follow Up: prn, Reason: Progress Notes * Gautam DAVIS PDOB: (58 yo M)Acc No.[id number]:05/27/2023 Progress Notes Patient:?Gautam Davis Provider:?Ky Beasley DPM :1965???Age:58 Y???Sex:Male Neftali e:05/27/2023 Address:[address] [id number] Pcp:Kim Higuera Subjective: * Chief Complaints: * ???Pcp- 06/08Foot pain * HPI: ???Foot Pain:?Nature:?tingling, aching.?Location?B/L, R>L, Bottom, Forefoot.?Duration:?several weeks.?Onset/Cause:?muñiz's cyst rt knee.?Course:?intermittent.?Aggrevated:?any pressure, standing, walking.?Treatments:?custom orthoses from [facility].?Quality/Severity?mild, moderate.? * ROS:?General/Constitutional:?Nausea?denies, denies.?Vomiting?denies, denies.?Hunger Thirst?denies, denies.?Loss appetite?denies, denies.?Chills?denies, denies.?Fatigue?denies, denies.?Fever?denies, denies.?Night Sweats denies, denies.?Unexplained weight loss?denies, denies.?Unexplained weight gain?denies.?Ophthalmologic:?Blurred vision?denies.?Red eye?denies.?HEENTM:?Dentures?denies, denies.?Dizziness?denies, denies.?Glasses/contacts?denies, denies.?Retinopathy?denies, denies.?Blurred/double vision?denies, denies.?TMJ?denies, denies.?Discharge/drainage?denies, denies.?Implants?denies, denies.?Sore throat?denies.?Dental implants?denies.?Hard of hearing ?admits, denies.?Difficulty chewing/swallowing/speaking?denies, denies.?Nose bleeds?denies, denies.?Sore mouth?denies, denies.?Swollen glands?denies.?Respiratory:?On Oxygen?denies, denies.?Pneumonia/pleurisy?denies, denies.?Bronchitis?denies, denies.?Emphysema?denies, denies.?Coughing?denies, denies.?Cough blood?denies, denies.?Shortness of breath?denies, denies.?Wheezing?denies, denies.?Cardiovascular:?Pacemaker?denies, denies.?MVP?denies, denies.?WPW?denies, denies.?CHF?denies, denies.?Heart attack?denies, denies.?Septal defect?denies, denies.?Rapid beat?denies, denies.?Chest pain ?denies, denies.?Atrial Fib.?denies, denies.?Murmur/Palpitations?denies, denies.?Gastrointestinal:?Hemorrhoids?admits, denies.?Stomach/Abdominal pain?denies, denies.?Dark blood stool?denies, denies.?Irritable bowel ?denies, denies.?Constipation?denies, denies.?Diarrhea?denies, denies.?Vomiting?denies.?Hematology:?Swelling?denies, denies.?Clots?denies.?Varicose Veins?denies.?Bruising?denies, denies.?Bleeding problem?denies, denies.?Genitourinary:?Blood urine?denies, denies.?Frequent/Painfu/urination/bladder control?admits ,?, denies.?Kidney stones?denies, denies.?Infection (UTI)?denies, denies.?Nephropathy?denies, denies.?sex trans dis (STD)?denies.?Prostate?admits.?Musculoskeletal:?Hammertoes?admits, denies.?Bunions?denies, denies.?Scoliosis/kyphosis?denies.?Back Pain?admits.?Muscle Cramps/ Resting?denies.?Muscle cramps / walking?denies, denies.?Generalized aches and pains?admits, denies.?Weakness?denies, denies.?Integ.:?Alonso?denies, denies.?Scars?denies, denies.?Corns/calluses?denies, denies.?Ingrown nails?denies, denies.?Painful nails?denies, denies.?Open Sores?denies.?Rashes?denies, denies.?Neurologic:?Difficulty sleeping?admits, denies.?Bipolar?denies.?Brain disorder?denies, denies.?Numbness?admits.?Balance trouble?denies, denies.?Confusion?denies, denies.?Fainting/blackouts?denies, denies.?Headache?denies.?Tingling?admits.?Tremors?denies, denies.? * Medical History:? * Surgical History:?rotator cu ff tear repair 01/27/12knee surgery, left 86,89knee surgery, right 2002nose 2004shoulder surgery x2 deviated septum repair radical prostatectomy 09/08/22 * Hospitalization/Major Diagno stic Procedure:?Denies Past Hospitalization * Family History:?Mother: dece ased, diagnosed with Unspecified essential hypertension.?Father: , heart attack, diagnosed with Unspecified essential hypertension, Unspecified heart disease.?Siblings: alive, brother, diagnosed with Diabetic - NIDDM.?1 brother(s) . .? * Social History:?Tobacco Use:?Tobacco Use/Smoking?Are you a:?former smoker ?When did you stop smoking??1989 ?Additional Findings: Tobacco Non-User?Current non-smoker ?Tobacco use other than smoking?Are you an other tobacco user? No.?Drugs/Alcohol:?Drugs?Have you used drugs other than those for medical reasons in the past 12 months? No.?Alcohol Screen?Did you have a drink containing alcohol in the past year??Yes ?How often did you have a drink containing alcohol in the past year??Monthly or less (1 point) ?Points?1 ?Interpretation?Negative ???Miscellaneous:?Caffeine: yes, frequency:, 1-2 cups per day. ?Children: yes, two. 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 ?Marital status: . 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 * Medications:?TakingCialis 5 MG Tablet 1 tablet as needed Orally Once a qarKafrgnrjrw-WNJK-Aibgdubj Atorvastatin Calcium 40 MG Tablet 1 tablet Orally Once a dayAtenolol 50 MG Tablet Orally Lisinopril 5 MG Tablet Orally Taking Cialis 5 MG Tablet 1 tablet as needed Orally Once a dayTaking Dwlihruthe-NZUL-Okilduir Taking Atorvastatin Calcium 40 MG Tablet 1 tablet Orally Once a dayTaking Atenolol 50 MG Tablet Orally Taking Lisinopril 5 MG Tablet Orally Not-Taking/PRNLipitor 40 MG Tablet Orally Fioricet 50-300-40 MG Capsule Orally diphenhydrAMINE HCl Aleve 220 MG Tablet 1 tablet as needed Orally every 12 hrsFlexeril PRNCustom Orthotics as directed Custom Orthotics as directed Elmiron Benadryl 25 MG Capsule Orally Lisinopril Medication List reviewed and reconciled with the patientNot-Taking/PRN Lipitor 40 MG Tablet Orally Not-Taking/PRN Fioricet 50-300-40 MG Capsule Orally Not-Taking/PRN diphenhydrAMINE HCl Not-Taking/PRN Aleve 220 MG Tablet 1 tablet as needed Orally every 12 hrsNot-Taking/PRN Flexeril PRNNot-Taking/PRN Custom Orthotics as directed Not-Taking/PRN Custom Orthotics as directed Not-Taking/PRN Elmiron Not- Taking/PRN Benadryl 25 MG Capsule Orally Not-Taking/PRN Lisinopril Medication List reviewed and reconciled with the patient * Allergies:?shrimp/shell fish yes[Allergies Verified] Objective: * Vitals:?Ht: 5ft 9.5in, Wt:21 2, BMI:30.85, Shoe size: 9.5-10, BP:120/80 mm Hg, Ht-cm: 176.53 cm, Wt-k.99 kg. * Examination: ???General Examination: ?GENERAL APPEARANCE:?pleasant, alert, well nourished, well developed, well hydrated, with good attention to hygene/body habitus, and in no acute distress.?ORIENTED:?person,place, and time.?Neurological: ?SENSORY:?Neurological exam is normal, pain sensation normal, vibration sensation intact, pinprick sensation is normal in the lower extremities, denies, tingling, burning, anesthesia, paresthesia, hyperesthesia, B/L.?TINEL'S COMPRESSION:?Negative tarsal tunnel, nataly pedis, and medial calcaneal nerves B/L.?BABINSKI REFLEX:?absent.?Neuroma Pain: ?PALPATION:?No interspace pain noted on palpation.?Vascular: ?DP PULSES:? 1/4, B/L.?PT PULSES:?2/4, B/L.?CAPILLARY FILL TIME:?3 secs. per digit, B/L.?SKIN TEMPERTURE GRADIENT OF THE LOWER EXTERMITIES:?warm to cool, proximal to distal, B/L.?HAIR GROWTH/TEXTURE/ELASTICITY/TURGOR:?normal, B/L.?PIGMENTATION:?normal, B/L.?EDEMA:?no edema.?TELANGECTASIA:?absent.?VARICOSITIES:?absent.?Dermatologic: ?SKIN FINDINGS:?Skin exam reveals normal texture, elasticity, and tugor. There are no masses. The interspaces are clear, B/L .?Orthopedic: ?MUSCLE STRENGTH:?5/5 all groups in a symmetrical fashion , B/L.?GAIT ABNORMALITY:?pronated, abducted, B/L.?DIGITAL DEFORMITIES:? Digital contracture, PIPJ, 2-5 B/L, incompl- reducible with WB, or to push-up test, no over, nor underlapping.?X-Rays - IMAGING REPORT: ?Clinical Indication(s):? Evaluate Biomechanical Deformity.?Views:? 3 views of Foot, B/L.?Findings:? mild generalized decrease in bone density.?Digits:? show asymmetrical joint space narrowing at the PIPJ consistent with clinical finding of hammertoe deformity, show enlarged/hypertrophied phalangeal head(s) consistent for clinical finding of hammertoe deformity, 2nd digit, 3rd digit, 4th digit, show dorsal dislocation of MTPJ.? Assessment: * Assessment: 1.?Pain in right foot - M79. 671?2.?Pain in left foot - M79.672 (Primary)?3.?Other hammer toe(s) (acquired), left foot - M20.42?4.?Other hammer toe(s) (acquired), right foot - M20.41?5.?Metatarsalgia, left foot - M77.42?6.?Metatarsalgia, right foot - M77.41? Plan: * Treatment: 2.?Pain in right foot?Imaging: X ray : Foot, right 3V 3.?Others? Start Custom Orthotics, as directed, 2, Refills 0.?? * Procedure Codes:?23953 X-RAY EXAM OF LEFT FOOT 3V, Modifiers: 26 , [id number] X-RAY EXAM OF RIGHT FOOT 3V, Modifiers: 26 , RT * Preventive Medicine:? ??Counseling:?Discussion:?-03: Office or other outpatient visit for the evaluation and management of a new patient, which required a medically appropriate history and/or examination and LOW level of DECISION MAKING for: 1 STABLE ACUTE UNCOMPLICATED PROBLEM, 2 OR MORE MINOR PROBLEMS, OR 1 STABLE CHRONIC PROBLEM, THAT POSE(S) A LOW RISK FOR MORBIDITY/MORTALITY. The visit on the day of the encounter encompassed interpreting the data and educating the patient as to the nature of their condition, treatment options available according to their individual PMH, meds, allergies, and overall health/living conditions, as well as any potential risks or complications that may occur from a failure to adhere to, and participate in, the recommended course of therapy. The discussion included a complete verbal, and/or written explanation of the examination results, any x-rays taken, the proposed diagnosis, and outline of the treatment plan. A schedule for future care needs was also explained. The patient verbalized an understanding of the instructions at this time and agreed to be an active participant in their treatment. If the patient should think of any questions or concerns after the visit, I have encouraged the patient to call the office--rx addititon fo met pad to orthoses at [facility].? * Follow Up:?prn * Images: * Sign off status: Completed true * Provider:?Ky Beasley DPM Date:? 024 Generated for [place] julio/Benedicto/eTmangoitting on:?01/27/2024 07:09 AM EST History and Physical Notes * HPI (History of Present Illness) Category Sub-Category Detail Notes Category Not es Foot Pain Aggrevated: any pressure, standing, walk ing Onset/Cause: muñiz's cyst rt knee Course: intermittent Duration: several weeks Nature: tingling, aching Treatments: custom orthoses from [facility] Quality/Severity mild, moderate Location B/L, R>L, Bottom, Fo refoot Examination Category Sub-Category Detail Notes Category Not es Neuroma Pain PALPATION: No interspace pain noted on palpation Neurological SENSORY: Neurological exa m is normal, pain sensation normal, vibration sensation intact, pinprick sensation is normal in the lower extremities, denies, tingling, burning, anesthesia, paresthesia, hyperesthesia, B/L BABINSKI REFLEX: absent TINEL'S COMPRESSION: Negative tarsal murphy quang, nataly pedis, and medial calcaneal nerves B/L Dermatologic SKIN FINDINGS: Skin exam reveal s normal texture, elasticity, and tugor. There are no masses. The interspaces are clear, B/L Orthopedic GAIT ABNORMALITY: pronated, abducted, B/L DIGITAL DEFORMITIES: Digital contracture , PIPJ, 2-5 B/L, incompl-reducible with WB, or to push-up test, no over, nor underlapping MUSCLE STRENGTH: 5/5 all groups in a symmetrical fashion , B/L General Examination GENERAL APPEARANCE: pleasant , alert, well nourished, well developed, well hydrated, with good attention to hygene/body habitus, and in no acute distress ORIENTED: person,place, and ti me Vascular DP PULSES(B): 1/4, B/L PT PULSES(B): 2/4, B/L CAPILLARY FILL TIME: 3 secs. per digit, B/L TEMPERTURE GRADIENT(C): warm to cool, pr oximal to distal, B/L TROPHIC CONDITION-TEXTURE/ELASTICITY/TURGOR/HAIR GROWTH(B): normal, B/L EDEMA(C): no edema TELANGECTASIA: absent VARICOSITIES: absent PIGMENTATION: normal, B/L X-Rays - IMAGING REPORT Findings: mild generalized decrease in bone density Digits: show asymmetrical oswald int space narrowing at the PIPJ consistent with clinical finding of hammertoe deformity, show enlarged/hypertrophied phalangeal head(s) consistent for clinical finding of hammertoe deformity, 2nd digit, 3rd digit, 4th digit, show dorsal dislocation of MTPJ Views: 3 views of Foot, B/L Clinical Indication(s): Evaluate Biomech anical Deformity
--- OUTSIDE RECORDS SUMMARY | 2024-01-27 07:10 | XMS_ITS ---
Author Name [facility] Organization Unknown History of Medication Use Medication Directions Dispensed Refills Start Date End Date [facility] clobetasol 0.05 % emollient cream Apply 1 Application topically 2 (two) times a day. 09/09/2022 active atenolol (TENORMIN) 50 MG tablet Take 1 tablet (50 mg total) by mouth every morning. 09/09/2022 active atorvastatin (LIPITOR) 40 MG tablet Take 1 tablet (40 mg total) by mouth every evening. 09/09/2022 active amLODIPine (NORVASC) 5 MG tablet Take 1 tablet (5 mg total) by mouth every morning. 07/17/2022 active finasteride (PROSCAR) 5 MG tablet Take 1 tablet (5 mg total) by mouth every evening. 07/17/2022 active Psyllium (Metamucil) 28.3 % Powder 07/17/2022 active atenolol (TENORMIN) 50 MG tablet 1 tablet 07/17/2022 active finasteride (PROSCAR) 5 MG tablet Take 1 tablet (5 mg total) by mouth every evening. 07/17/2022 active OMEprazole (PriLOSEC) 20 MG capsule Take 1 capsule (20 mg total) by mouth 2 (two) times a day. 09/09/2022 active docusate sodium (COLACE) 50 MG capsule Take 1 capsule (50 mg total) by mouth 2 (two) times a day. 09/12/2022 active bicalutamide (CASODEX) 50 MG tablet 07/17/2022 active acetaminophen (TYLENOL) 500 MG tablet Take 2 tablets (1,000 mg total) by mouth 4 times daily (every 6 hours) as needed for mild pain. As Needed 07/17/2022 active lisinopril (PRINIVIL,ZeSTRIL) 5 MG tablet 1 tablet 07/17/2022 active OMEprazole (PriLOSEC) 20 MG capsule 1 capsule 30 minutes before morning meal 07/17/2022 active sulfamethoxazole-trime thoprim (BACTRIM DS,SEPTRA DS) 800-160 MG per tablet Take 1 tablet by mouth 2 (two) times a day. Start taking 1 day before catheter removal. 09/12/2022 active clobetasol 0.05 % emollient cream 07/17/2022 active sildenafil (REVATIO) 20 MG tablet Take 3-5 tabs 1 hour before sex. Take 2 pills at bedtime if no sex that day. Maximum 5 pills a day. 07/17/2022 active butalbital-acetaminoph en-caffeine (FioriCET, ESGIC) 50-325-40 mg tablet Take 1 tablet by mouth every 4 (four) hours. 07/17/2022 active atorvastatin (LIPITOR) 40 MG tablet 1 tablet 07/17/2022 active bicalutamide (CASODEX) 50 MG tablet Take 1 tablet (50 mg total) by mouth nightly. 09/09/2022 active lisinopril (PRINIVIL,ZeSTRIL) 10 MG tablet Take 1 tablet (10 mg total) by mouth every morning. 09/09/2022 active Psyllium (Metamucil) 28.3 % Powder Take 1 Dose by mouth 2 (two) times a day. 09/09/2022 active hydrocortisone (WESTCORT) 0.2 % cream 07/17/2022 ac tive oxyCODONE (ROXICODONE) 5 MG immediate release tablet Take 1 tablet (5 mg total) by mouth 4 times daily (every 6 hours) as needed for moderate pain or severe pain. Max Daily Amount: 20 mg 09/12/2022 active Problems Problem Status Onset Date Problem Type Date of Resoluti on Source GERD (gastroesophageal reflux disease) active 2022-09-08 ProblemAct HHCCT History of prostate cancer active 2022-09-16 ProblemAct CCT
--- OUTSIDE RECORDS SUMMARY | 2024-01-27 07:10 | XMS_ITS ---
Author Organization [facility] Address [address] [facility] [place] [address] Care Team Providers Care Checkering Machine Operator Name Role Phone Kim Higuera Primary Care Provider Ky Kidd [phone] REASON FOR VISIT ON Encounters Encounter Location Date Provider Diagnosis [facility] [address] [place] [address] 03/08/2023 Ky Beasley Plan Of Treatment No Information Progress Notes * Gautam DAVIS PDOB: (58 yo M)Acc No.[id number]:03/08/2023 Patient:?Gautam Davis :1965???Age:58 Y???Sex:Male Address:[address] [place] [address] [place] [address] * true * Date:? Generated for [place] julio/Benedicto/eTransmitting on:?01/27/2024 07:09 AM EST
--- OUTSIDE RECORDS SUMMARY | 2024-01-27 07:10 | XMS_ITS | Patient Health Record ---
Author Organization [facility] Address [address] [facility] [place] [address] Care Team Providers Care Explosive Operator Bomb Name Role Phone Kim Higuera Primary Care Provider Ky Kidd Unavailable [phone] Allergies Allergen (clinical drug ingredient) Drug/Non Drug Allergy documented on EMR Reaction Allergy Type Onset Date Status shrimp/shell fish (uncoded) Unknown Allergy Active Reason For Referral No Information Medications Medication SIG (Take, Route, Frequency, Duration) Notes Start Date End Date Status Nmckavxosy-ZZRD-Kqyhghff Active Elmiron Not-Taking Atorvastatin Calcium 40 MG 1 tablet Oral ly Once a day Active Benadryl 25 MG Orally Not-T aking [employer] Orth[employer] as directed N ot-Taking Cialis 5 MG 1 tablet as needed Orally Once a day Active Custom Orthotics as directed A ctive Flexeril PRN Not-Taking diphenhydrAMINE HCl Not-Taking Aleve 220 MG 1 tablet as needed Orally every 12 hrs Not-Taking Lipitor 40 MG Orally Not-Ta tavo Fioricet 50-300-40 MG Orally Not-Taking Atenolol 50 MG Orally Activ e Lisinopril Not-Takin g Lisinopril 5 MG Orally Acti ve Social History Tobacco Use: Social History Observation [...] less (1 point) Points 1 Interpretation Negative Problems Problem Type SNOMED Code ICD Code Onset Dates Problem Status W/U Status Risk Notes Problem Acquired hammer toe of right foot (3022796811082 105) Other hammer toe(s) (acquired), right foot (M20.41) Active confirmed Problem Acquired hammer toe of left foot (1808458244099 103) Other hammer toe(s) (acquired), left foot (M20.42) Active confirmed Vital Signs Blood pressure diastolic 80 mm Hg 05/27/2023 Height 5ft 9.5in in 05/27/2023 Blood pressure systolic 120 mm Hg 05/27/2023 Weight 212 lbs 05/27/2023 BMI 30.85 kg/m2 05/27/2023 Encounters Encounter Location Date Provider Diagnosis [address] [address] 05/27/2023 Ky Beasley Pain in left foot M79.672 ; Pain in right foot M79.671 ; Other hammer toe(s) (acquired), left foot M20.42 ; Other hammer toe(s) (acquired), right foot M20.41 ; Metatarsalgia, left foot M77.42 and Metatarsalgia, right foot M77.[address] [address] 03/08/2023 Ky Beasley [address] [address] 05/27/2023 Ky Beasley Assessments Encounter Date Diagnosis (ICD Code) Assessment Notes Treatment Notes Treatment Clinical Notes Section Notes 05/27/2023 Pain in right foot (ICD-10 - M79.671) 05/27/2023 Pain in left foot (ICD-10 - M79.672) 05/27/2023 Other hammer toe(s) (acquired), left foot (ICD-10 - M20.42) 05/27/2023 Other hammer toe(s) (acquired), right foot (ICD-10 - M20.41) 05/27/2023 Metatarsalgia, left foot (ICD-10 - M77.42) 05/27/2023 Metatarsalgia, right foot (ICD-10 - M77.41) Plan Of Treatment Pending Test Test Name Order Date X ray : Foot, left 2V 10/13/2012 X ray : Foot, left 2V 10/18/2013 X ray : Foot, left 2V 04/15/2016 X ray : Foot, right 2V 04/15/2016 X ray : Foot, right 2V 10/13/2012 X ray : Foot, right 2V 10/18/2013 X ray : Foot, left 3V 05/06/2017 X ray : Foot, left 3V 05/27/2023 X ray : Foot, right 3V 05/27/2023 42386, J0702- INJECT TENDON ORIGIN/INSER T 05/06/2017 04388, J0702- Neuroma/Injection 10/22/19 13 55428, J0702- Neuroma/Injection 01/07/20 13 Insurance Providers Payer Name Payer Address Payer Phone Subscriber Number Group Number Insured Name Patient Relationship to Insured Coverage Start Date Coverage End Date [facility] ([facility] [address] [place] [id number] Gautam Sorto Self - patient is the insured Medical (General) History Medical History History ICD Code headaches/migraines high blood pressure vertigo Arthritis- OA CAD (Cholesterol) Prostate cancer Neuropathy Measles Mumps Chicken pox Surgical History Surgery Date(Month/Year) rotator cuff tear repair 01/27/12 knee surgery, left 86,89 knee surgery, right 2001 nose 2003 shoulder surgery x2 deviated septum repair radical prostatectomy 09/08/22
--- OUTSIDE RECORDS SUMMARY | 2024-01-27 07:10 | XMS_ITS | Patient Health Record ---
Author Organization [facility] Address [address] [place] [address] Care Team Providers Care Geography Department Chair Name Role Phone Salvatore Osorio MD Primary Care Provider UnavailMayo Dupree [phone] ALLERGIES Allergen (clinical drug ingredient) Drug/Non Drug Allergy documented on EMR Reaction Allergy Type Onset Date Status crab allergenic extract Crab (Diagnostic) Unknown Drug All ergy Active Shrimp Flavor Unknown Drug Allergy Act leobardo Shellfish (FN) lobster (uncoded) Unknown Allergy Active REASON FOR REFERRAL No Information MEDICATIONS Medication SIG (Take, Route, Frequency, Duration) Notes Start Date End Date Status Omeprazole 20 MG 1 capsule 30 minutes before morning meal Orally BID Active amLODIPine Besy-Benazepril HCl 2.5-10 MG as directed Orally Active Flomax 0.4 MG 1 capsule Orally Onc e a day for 30 day(s) Active Lisinopril 5 MG 1 tablet Orally Once a day for 30 day(s) Active Clobetasol Prop & Cleanser 0.05 % as directed Externally 09/10/2021 Activ e Atorvastatin Calcium 40 MG 1 tablet Oral ly Once a day for 30 day(s) Active Atenolol 50 MG 1 tablet Orally Once a day for 30 day(s) Active Hydrocortisone 2 MG as directed Orally 09/10/2021 Active IMMUNIZATIONS Vaccine Route Administration Date Status Comme nts Influenza Unknown 01/07/2021 Administered SOCIAL HISTORY Tobacco Use: Social History Observation Description Date Details (start date - stop date) Former Smoker NA - NA Sex Assigned At : Social History Observation Description Sex Assigned At Unknown Tobacco Use/Smoking Question Answer Notes Patient is a former smoker Alcohol Screen Question Answer Notes Did you have a drink contain ing alcohol in the past year? Yes How often did you have a dri nk containing alcohol in the past year? 4 or more times a week (4 points) How many drinks did you have on a typical day when you were drinking in the past year? 1 or 2 drinks (0 point) How often did you have 6 or more drinks on one occasion in the past year? Monthly (2 points) Points 6 Interpretation Positive PROBLEMS Problem Type ICD Code Onset Dates Problem Status W/U Status Risk SNOMED Code Notes Problem Gastro-esophagea l reflux disease without esophagitis (K21.9) Active confirmed Gastro-esophage al reflux disease without esophagitis (583546217) Problem Esophageal reflux (K21.9) Active confirmed Esophageal reflux (627485916) PLAN OF TREATMENT Future Test Test Name Order Date UPPER GI ENDOSCOPY 09/10/2021 Insurance Providers Payer Name Payer Address Payer Phone Subscriber Number Group Number Insured Name Patient Relationship to Insured Coverage Start Date Coverage End Date [facility] [address] [place] [address] [id number] EBONIE BAUTISTA Self - patient is the insured MEDICAL (GENERAL) HISTORY Medical History History ICD Code HTN Neck pain-s/p injections Neg. colonoscopy at age 49 [address] Gerardo acosta--told to repeat at age 59 Hyperlipidemia GERD BPH Denies [place],DM,CVA,Lung disease,renal dise ase Cytoscopies-interstitial cystitis Surgical History Surgery Date(Month/Year) Left and right rotator cuff Nose-deviated septum Left and right knee
[2024-01-27 10:21] LABS: Estimated Average Glucose 134 mg/dL; Hemoglobin A1C 164.6857 umol/L; Hemoglobin A1c % 6.3 % (<6.0); Total Hemoglobin (HGBA1C) 3604.8882 umol/L
== END 2024-01-27 07:07 | disposition home or self-care (01) ==
LOC: HO.HMGCLR 07:06
PROVIDERS: PCP Family Medicine; Visit Provider Family Medicine
DX: R73.01 Impaired fasting glucose (principal)
CPT/HCPCS: 36415; 83036

== ENCOUNTER 2024-03-03 07:05 | Outpatient (REF) | payer OTHER, SELFPAY ==
[2024-03-03 10:41] LABS: Cholesterol 171 mg/dL (<200); HDL Cholesterol 46 mg/dL (>40); LDL Cholesterol Calculated 97 mg/dL (<100); Triglycerides 141 mg/dL (<150)
[2024-03-03 10:56] LABS: Prostate Specific Antigen < 0.10 ng/mL (<0.05-4.0)
[2024-03-03 10:57] LABS: ~HepC Num1 0.11 S/CO (0.00-0.79); ~Hepatitis C Antibody Nonreactive (Nonreactive)
== END 2024-03-03 07:06 | disposition home or self-care (01) ==
LOC: HO.HMGCLDS 07:05
PROVIDERS: PCP Family Medicine; Referring Provider Urology
DX: E78.2 Mixed hyperlipidemia (principal); Z11.59 Encounter for screening for other viral diseases; Z12.5 Encounter for screening for malignant neoplasm of prostate
CPT/HCPCS: 36415; 80061; 84153; 86803

== ENCOUNTER 2024-03-10 08:57 | Outpatient (AMB) | payer OTHER, SELFPAY ==
--- NOTE | 2024-03-10 08:57 | MHC.OFFVIS ---
Intake Visit Reasons: 4m/PSA(set) Intake Note: Patient is present for 4M/PSA Urology Medication:TADALAFIL Antibiotic Allergy:NONE Blood Thinner:NONE Centrifugal Drier Operator Required: No Allergies CRUSTACEANS Allergy (Intermediate, Uncoded 03/10/24 08:57) SWELLING/DIFF.BREATHING shrimp/crab/lobster Allergy (Unknown, Uncoded 03/10/24 08:57) facial swelling HPI Comments Details: Gautam is a pleasant male. He is a patient of Dr. Higuera. He seen for the following urologic conditions - elevated PSA - prostate cancer Telemedicine Evaluation 15 min Consultation Evgen Jose M Video PSA remains low PSA - 02/06 <0.1, 05/08 <0.1, 08/08 <0.1, 11/08 <0.1, 03/11 <0.1 Continue interval surveillance - testosterone lab since diabetic with HbA1c 6.3 Recommend Angeliaot Kiran Prostate cancer -grade group 5, high-volume 05/07 - RALP 09/[address] Enriquez 05/07 for PSA 7.1 with free PSA 18% Initial therapy robotic prostatectomy Dr Cowart [facility] 09/06 - genetics negative Clinical T1c, TRUS prostate size 35 g Histologic type: Adenocarcinoma, acinar type Manuela score: 9 (4+5) (left base lateral, left base medial, left mid lateral,left mid medial, left apex lateral, and left apex medial), 7 (3+4) (right base medial), 6 (3+3) (right base lateral) Tumor quantitation: Number cores positive: 8 Total number of cores: 15 - % of tissue involved: 44 % - 640/1600 Periprostatic fat inv.: Not identified Seminal vesicle inv.: Not identified Perineural inv.: Present Lymphovascular invasion: Not identified Staging - 06/07 PSMA PET-CT - isolated left side prostate activity - 06/07 MRI - multiple prostate lesions PiRADs 5 with apparent SHERRY to involve neurovascular bundles, no evidence for seminal vesicle involvement [facility] Medical History (Updated 03/10/24 @ 09:23 by Mario Enriquez MD) Elevated PSA Synovial cyst of popliteal space [Knight], right knee Spondylosis of cervical spine Syrinx of spinal cord BPH loc w urin obs/LUTS Interstitial cystitis BPH (benign prostatic hyperplasia) GERD (gastroesophageal reflux disease) Elevated cholesterol HTN (hypertension) Surgical History History of esophagogastroduodenoscopy (EGD) Hx of prostatectomy Hx of knee surgery History of nasal surgery H/O rotator cuff surgery Hx of cystoscopy Hx of colonoscopy Social History Comment: counts correct Patient Tobacco Use Status: Former Tobacco user Current occupational status: employed 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 Review of Systems Const All systems reviewed & are unremarkable except as noted in HPI and below Reports no additional complaints Resp Reports no additional complaints GI Reports no additional complaints Reports as per HPI Musc Reports no additional complaints Physical Exam Telemedicine evaluation Appropriate responses Regular breathing rate and rhythm HEENT Head: Yes normal to inspection Ears: hearing grossly normal bilaterally Eyes General: appearance normal, both eyes and all related structures Neck Neck: Yes normal visual inspection Chest Chest palpation & inspection: normal inspection of the chest Resp Effort & Inspection: normal respiratory effort and able to speak in complete sentences Telehealth Telehealth Telehealth Platform: Evgen Location of provider rendering services: practice address Location of patient: address on file Patient Identification confirmed using: Name, : Yes Telehealth method: video Patient verbally consented to treatment: Yes Patient verbally consented to billing insurance company: Yes Patient informed of any privacy concerns related to visit: Yes Minutes spent on Phone/Video with Pt.: 15 Assessment & Plan Assessment & Plan (1) Prostate cancer: Comment: 05/07 high-grade, high-volume Code(s): C61 - Malignant neoplasm of prostate Category: Medical (2) Erectile dysfunction associated with type 2 diabetes mellitus: Code(s): E11.69 - Type 2 diabetes mellitus with other specified complication; N52.1 - Erectile dysfunction due to diseases classified elsewhere Category: Medical (3) Diabetes mellitus: Code(s): E11.9 - Type 2 diabetes mellitus without complications Category: Medical (4) Impaired fasting blood sugar: Code(s): R73.01 - Impaired fasting glucose Category: Medical Plan PSA and testosterone 4 months Orders: Orders Prostate Specific Antigen 4 Months N52.31 - Erectile dysfunction following radical prostatectomy Testosterone, Total 4 Months N52.31 - Erectile dysfunction following radical prostatectomy Medications: New flash glucose sensor (FreeStyle Yolanda 14 Day Sensor kit) As directed 2 ea 0RF E11.9 - Type 2 diabetes mellitus without complications Patient Instructions: Imaging studies, laboratory and physical exam results were discussed and reviewed in detail. No major barriers to patient understanding were identified. An opportunity to ask questions regarding the treatment plan was provided. All questions were answered. The patient expressed understanding and agreement with the above treatment plan. The patient is aware they should contact our office by phone for worsening of their current condition or the appearance of new urologic symptoms. Compliance is encouraged with any medications and followup testing that is ordered. It is a privilege to participate in the urologic care of your patient. If you have any questions or concerns regarding treatment for the above conditions, or other urologic issues, please do not hesitate to contact me. The office telephone contact is [phone]. This note is constructed using voice recognition software. While every effort has been made to ensure accuracy volunteer recruiter errors may have been included. Yours sincerely, Dr Mario Enriquez MD, [facility] - Urology Providers of Expert, Compassionate Care for the Genitourinary System Coding Level of Care Code Tele Est Pt Level 3 (58507) Diagnoses Prostate cancer C61 Erectile dysfunction associated with type 2 diabetes mellitus E11.69; N52.1 Diabetes mellitus E11.9 Impaired fasting blood sugar R73.01
== END 2024-03-10 09:39 | disposition home or self-care (01) ==
LOC: HO.HUSH 08:57
PROVIDERS: PCP Family Medicine; Visit Provider Urology
DX: C61 Malignant neoplasm of prostate (principal); E11.69 Type 2 diabetes mellitus with other specified complication; N52.1 Erectile dysfunction due to diseases classified elsewhere; E11.9 Type 2 diabetes mellitus without complications; R73.01 Impaired fasting glucose
CPT/HCPCS: 99213

== ENCOUNTER 2024-03-20 14:50 | Outpatient (AMB) | payer OTHER, SELFPAY ==
[2024-03-20 14:51] VITALS: BMI 31.3
--- NOTE | 2024-03-20 14:51 | MHC.OFFVIS ---
Vital Signs 03/20/24 14:51 Height 5 ft 9.5 in Weight 215 lb 6 oz BMI 31.3 Intake Visit Reasons: Colonoscopy Intake Note: This patient presents for recall colonoscopy screening. Pt c/o; no concerns. Last colonoscopy: [address] Gonzalez. Can Marker Required: No Accompanied by: Self / Same As Patient Allergies CRUSTACEANS Allergy (Intermediate, Uncoded 03/20/24 14:57) SWELLING/DIFF.BREATHING shrimp/crab/lobster Allergy (Unknown, Uncoded 03/20/24 14:57) facial swelling Medication List - Last Reconciled 03/20/24 by Bar Gonzalez MD amlodipine 5 mg PO DAILY atenolol 50 mg PO DAILY atorvastatin 40 mg PO DAILY deklhxdwst-rqbvnnzpgfdvv-mawd 50-325-40 mg 1 tab PO Q4H PRN cyclobenzaprine 10 mg PO BEDTIME epinephrine IM flash glucose sensor (FreeStyle Yolanda 14 Day Sensor kit) As directed hydrocortisone valerate 0.2% topical lisinopril 10 mg PO DAILY omeprazole 20 mg PO BID tadalafil (Cialis) 5 mg PO DAILY 90 days tizanidine 2 mg PO BID HPI HPI Colonoscopy: Details: 59-year-old male here for to schedule for screening colonoscopy. His last colonoscopy was 10 years ago and this was unremarkable He denies GI complaints. He says he feels well overall He did have robotic prostatectomy for prostate cancer in 2022. He says he had been doing well since that time. He denies any family history of colon cancer. He was recently told he is prediabetic. [facility] Medical History (Updated 03/20/24 @ 15:10 by Bar Gonzalez MD) Colon cancer screening Elevated PSA Synovial cyst of popliteal space [Knight], right knee Spondylosis of cervical spine Syrinx of spinal cord BPH loc w urin obs/LUTS Interstitial cystitis BPH (benign prostatic hyperplasia) GERD (gastroesophageal reflux disease) Elevated cholesterol HTN (hypertension) Surgical History History of esophagogastroduodenoscopy (EGD) Hx of prostatectomy Hx of knee surgery History of nasal surgery H/O rotator cuff surgery Hx of cystoscopy Hx of colonoscopy Social History Comment: counts correct Patient Tobacco Use Status: Former Tobacco user Current occupational status: employed 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 Review of Systems Const Denies chills and Denies fever(s) Card Denies chest pain, Denies dyspnea and Denies dyspnea on exertion Resp Denies cough, Denies dyspnea and Denies dyspnea on exertion GI Denies hematochezia and Denies change in bowel habits Denies hematuria and Denies difficulty urinating Musc Denies back pain and Denies limited range of motion Neuro Denies focal weakness and Denies convulsions Psych Denies depression and Denies mood swings Physical Exam Vital Signs: BMI result Body Mass Index 31.3 Const General: comfortable and no acute distress Orientation/consciousness: patient oriented x3 Neck Neck: Yes no lymphadenopathy Resp Auscultation: clear to auscultation bilaterally Cardio Rhythm: regular rhythm GI Palpation (GI): Soft to palpation, nontender and no guarding Neuro General: patient oriented x3 Assessment & Plan Assessment & Plan (1) Colon cancer screening: Code(s): Z12.11 - Encounter for screening for malignant neoplasm of colon Category: Medical Plan: I reviewed with him the technique of colonoscopy. I explained the risks including but not limited to bleeding and perforation, as well as the benefits and alternatives. He says he understands and wants to proceed. Coding Level of Care Code New Pt Level 3 (90410) Diagnoses Colon cancer screening Z12.11
--- OUTSIDE RECORDS SUMMARY | 2024-03-20 16:23 | XMS_ITS | Encounter Summary ---
Author Organization [facility] Address [address] [place] [address] Care Team Providers Care Area Relief Pilot Name Role Phone Pcp, Danika Primary Care Provider Salvatore Castillo MD Primary Care Provider Mario Enriquez MD Unavailable [phone] Reason for Visit * Reason Comments Appointment Encounter Details Date Type Department Care Team (Late st Contact Info) Description 06/18/[address] [address] Brayan Cowart MD [address] [address] Appointment Social History Tobacco Use Types Packs/Day Years Used Date Smoking Tobacco: Never Assessed Sex and Gender Information Value Date Recorded Sex Assigned at Male 09/08/2022 8:31 AM EDT Gender Identity Male 06/22/2022 7:20 PM EDT Sexual Orientation Heterosexual (straight) 06/22 7:20 PM EDT documented as of this encounter Plan of Treatment Not on file documented as of this encounter Visit Diagnoses Not on filedocumented in this encounter Care Teams Area Relief Pilot Relationship Specialty Start Date End Date Pcp, No [address] [place] [address] PCP - General 06/18/22 07/14/22 Salvatore Osorio MD [address] [place] [id number] PCP - General Family Medicine 07/15/22 Mario Enriquez MD [address] [address] [place] [address] Urology 09/10/22 documented as of this encounter
--- OUTSIDE RECORDS SUMMARY | 2024-03-20 16:23 | XMS_ITS | Encounter Summary ---
Author Organization [facility] Address [address] [place] [address] Care Team Providers Care Site Administrator Name Role Phone Pcp, Danika Primary Care Provider Salvatore Castillo MD Primary Care Provider Mario Enriquez MD Unavailable [phone] Reason for Visit * Reason Comments Appointment Encounter Details Date Type Department Care Team (Late st Contact Info) Description 06/19/[address] [address] Brayan Cowart MD [address] [address] Appointment Social History Tobacco Use Types Packs/Day [...] on filedocumented in this encounter Care Teams Site Administrator Relationship Specialty Start Date End Date Pcp, No [address] [place] [address] PCP - General 06/18/22 07/14/22 Salvatore Osorio MD [address] [place] [id number] PCP - General Family Medicine 07/15/22 Mario Enriquez MD [address] [address] [place] [address] Urology 09/10/22 documented as of this encounter
--- OUTSIDE RECORDS SUMMARY | 2024-03-20 16:23 | XMS_ITS | Encounter Summary ---
Author Organization [facility] Address [address] [place] [address] Care Team Providers Care Residential Air Sealing Technician Name Role Phone Salvatore sOorio MD Primary Care Provider Mario Enriquez MD Unavailable [phone] Encounter Details Date Type Department Care Team (Late st Contact Info) Description 09/03/2022 Telephone [facility] Urologic Surgery [address] [phone] Brayan Cowart MD [address] [place] [address] Social History Tobacco Use Types Packs/Day Years Used Date Smoking Tobacco: Former Cigarettes Q uit: 1989 Smokeless Tobacco: Never Alcohol Use Standard Drinks/Week Comments Yes 14 (1 standard drink = 0.6 oz pu re alcohol) AUDIT-C Answer Date Recorded Q1: How often do you have a drink containing alcohol? 4 or more times a week 09/03/2022 Q2: How many drinks containi ng alcohol do you have on a typical day when you are drinking? 1 or 2 Q3: How often do you have si x or more drinks on one occasion? Less than monthly 09/03/2022 Sex and Gender Information Value Date Recorded Sex Assigned at Male 09/08/2022 8:31 AM EDT Gender Identity Male 06/22/2022 7:20 PM EDT Sexual Orientation Heterosexual (straight) 06/22 7:20 PM EDT documented as of this encounter Plan of Treatment Not on file documented as of this encounter Visit Diagnoses Not on filedocumented in this encounter Care Teams Residential Air Sealing Technician Relationship Specialty Start Date End Date Salvatore Osorio MD [address] [place] [address] PCP - General Family Medicine 07/15/22 Mario Enriquez MD [address] [address] Urology 09/10/22 documented as of this encounter
--- OUTSIDE RECORDS SUMMARY | 2024-03-20 16:23 | XMS_ITS | Encounter Summary ---
Author Organization [facility] Address [address] [place] [address] Care Team Providers Care School Guard Name Role Phone Salvatore Osorio MD Primary Care Provider Mario Enriquez MD Unavailable [phone] Reason for Visit * Reason Comments Appointment Encounter Details Date Type Department Care Team (Late st Contact Info) Description 07/15/[address] [address] Brayan Cowart MD [address] [address] Appointment Social History Tobacco Use Types Packs/Day Years Used Date Smoking Tobacco: Former Cigarettes Smokeless Tobacco: Never Sex and Gender Information Value Date Recorded Sex Assigned at Male 09/08/2022 8:31 AM EDT Gender Identity Male 06/22/2022 7:20 PM EDT Sexual Orientation Heterosexual (straight) 06/22 7:20 PM EDT COVID-19 Exposure Response Date Recorded In the last 10 days, have yo u been in contact with someone who was confirmed or suspected to have Coronavirus/COVID-19? No / Unsure 07/15/2022 1:27 PM EDT documented as of this encounter Plan of Treatment Not on file documented as of this encounter Visit Diagnoses Not on filedocumented in this encounter Care Teams School Guard Relationship Specialty Start Date End Date Salvatore Osorio MD [address] [place] [address] PCP - General Family Medicine 07/15/22 Mario Enriquez MD [address] [place] [address] Urology 09/10/22 documented as of this encounter
--- OUTSIDE RECORDS SUMMARY | 2024-03-20 16:23 | XMS_ITS | Clinical Summary ---
Author Organization [facility] Address [address] [place] [address] Care Team Providers Care Prop Drawer Name Role Phone Salvatore Osorio MD Primary Care Provider Mario Enriquez MD Unavailable [phone] Allergies Active Allergy Reactions Criticality Noted Date Comments Crab (Diagnostic) Anaphylaxis High 09/10/2021 Other Anaphylaxis High 09/03/2022 Lobster Shrimp Flavor Agent (Non-Screening) Anaphylaxis High 09/10/2021 Medications Medication Sig Dispensed Refills Start Date End Date Status amLODIPine (NORVASC) 5 MG tablet Take 1 tablet (5 mg total) by mouth every morning. 07/10/2022 Active atenolol (TENORMIN) 50 MG tablet Take 1 tablet (50 mg total) by mouth every morning. Active atorvastatin (LIPITOR) 40 MG tablet Take 1 tablet (40 mg total) by mouth every evening. Active clobetasol 0.05 % emollient cream Apply 1 Application topically 2 (two) times a day. Active OMEprazole (PriLOSEC) 20 MG capsule Take 1 capsule (20 mg total) by mouth 2 (two) times a day. Active Psyllium (Metamucil) 28.3 % Powder Take 1 Dose by mouth 2 (two) times a day. Active butalbital-acetami nophen-caffeine (FioriCET, ESGIC) 50-325-40 mg tablet Take 1 tablet by mouth every 4 (four) hours. 05/01/2022 Active acetaminophen (TYLENOL) 500 MG tablet Take 2 tablets (1,000 mg total) by mouth 4 times daily (every 6 hours) as needed for mild pain. As Needed Active sildenafil (REVATIO) 20 MG tabletIndications: Prostate cancer (HCC) Take 3-5 tabs 1 hour before sex. Take 2 pills at bedtime if no sex that day. Maximum 5 pills a day. 90 tablet 11 08/21/2022 Active lisinopril (PRINIVIL,ZeSTRIL) 10 MG tablet Take 1 tablet (10 mg total) by mouth every morning. 07/30/2022 Active docusate sodium (COLACE) 50 MG capsuleIndications :Prostate CA (HCC) Take 1 capsule (50 mg total) by mouth 2 (two) times a day. 60 capsule 09/09/2022 Active sulfamethoxazole-t rimethoprim (BACTRIM DS,SEPTRA DS) 800-160 MG per tabletIndications: Prostate CA (HCC) Take 1 tablet by mouth 2 (two) times a day. Start taking 1 day before catheter removal. 6 tablet 09/09/2022 Active oxyCODONE (ROXICODONE) 5 MG immediate release tabletIndications: Prostate CA (HCC) Take 1 tablet (5 mg total) by mouth 4 times daily (every 6 hours) as needed for moderate pain or severe pain. Max Daily Amount: 20 mg 10 tablet 09/09/2022 Active Active Problems Problem Noted Date Diagnosed Date History of prostate cancer 09/16/2022 GERD (gastroesophageal reflux disease) 3 Resolved Problems Problem Noted Date Diagnosed Date Resolved Date Prostate cancer 09/08/2022 09/16/2022 Prostate CA 09/08/2022 09/16/2022 Family History Medical History Relation Name Comments Prostate Problems Father Cancer, Bladder Neg Hx Cancer, Kidney Neg Hx Cancer, Prostate Neg Hx Relation Name Status Comments Father Social History Tobacco Use Types Packs/Day Years Used Date Smoking Tobacco: Former Cigarettes Q uit: 1989 Smokeless Tobacco: Never Tobacco Cessation:Counseling Given: Not Answered Alcohol Use Standard Drinks/Week Comments Yes 14 (1 standard drink = 0.6 oz pu re alcohol) AUDIT-C Answer Date Recorded Q1: How often do you have a drink containing alcohol? 4 or more times a week 09/03/2022 Q2: How many drinks containi ng alcohol do you have on a typical day when you are drinking? 1 or 2 3 Q3: How often do you have si x or more drinks on one occasion? Less than monthly 09/03/2022 Overall Financial Resource Strain (CARDIA) Answe r Date Recorded How hard is it for you to pa y for the very basics like food, housing, medical care, and heating? Not hard at all 09/09/2022 Hunger Vital Sign Answer Date Recorded Within the past 12 months, y ou worried that your food would run out before you got the money to buy more. Never true 09/10/19 23 Within the past 12 months, t he food you bought just didn't last and you didn't have money to get more. Never true 09/09/2022 PRAPARE - Transportation Answer Date Re corded In the past 12 months, has l ack of transportation kept you from medical appointments or from getting medications? No 08/16 In the past 12 months, has l ack of transportation kept you from meetings, work, or from getting things needed for daily living? No 09/09/2022 Housing Stability Vital Sign Answer Neftali e Recorded In the last 12 months, was t here a time when you were not able to pay the mortgage or rent on time? No 09/09/2022 In the last 12 months, how many places have you lived? 1 09/09/2022 In the last 12 months, was t here a time when you did not have a steady place to sleep or slept in a prison (including now)? No 09/09/2022 Sex and Gender Information Value Date Recorded Sex Assigned at Male 09/08/2022 8:31 AM EDT Gender Identity Male 06/22/2022 7:20 PM EDT Sexual Orientation Heterosexual (straight) 06/22 7:20 PM EDT Last Filed Vital Signs Vital Sign Reading Time Taken Comments Blood Pressure 142/97 09/16/2022 7:56 AM EDT Pulse 58 09/16/2022 7:56 AM EDT Temperature 36.3 ??C (97.3 ??F) 09/09/2022 8:20 AM ED T Respiratory Rate 16 09/16/2022 7:56 AM EDT Oxygen Saturation 97% 09/09/2022 8:20 AM EDT Inhaled Oxygen Concentration - - Weight 96 kg (211 lb 9.6 oz) 09/16/2022 7:56 AM EDT actual Height 176.5 cm (5' 9.5 ) 09/16/2022 7:56 AM EDT Body Mass Index 30.8 09/16/2022 7:56 AM EDT Plan of Treatment Health Maintenance Due Date Last Done Comments Hepatitis C Virus Screening 1965 HIV Screening 01/28/1977 DTaP/Tdap/Td Vaccines (1 - Tdap) 01/28/1983 Colonoscopy 01/28/2009 Pneumococcal Vaccines 50+ (1 of 1 - PCV) 01/28/2014 Zoster (Shingles) Vaccine (1 of 2) 01/28/2014 Influenza Vaccine 09/16/2023 COVID-19 Vaccine (1 - 2023-2 5 season) 2023 RSV Vaccine 60 years and old er and Patients (1 - 1-dose 75+ series) 01/28/2039 Hepatitis B Vaccines Aged Out No long er eligible based on patient's age to complete this topic Pneumococcal Vaccine: Pediat emi (0-5 Years) and At-Risk Patients (6 to 49 Years) Aged Out No longer eligible b ased on patient's age to complete this topic Advance Directives * Full Code (Latest Code Status on File) Date Activated Date Inactivated Comments 09/08/2022 6:15 PM * Full Code Date Activated Date Inactivated Comments 09/08/2022 9:00 AM 09/08/2022 6:15 PM Care Teams Prop Drawer Relationship Specialty Start Date End Date Salvatore Osorio MD [address] [place] [address] PCP - General Family Medicine 07/15/22 Mario Enriquez MD [address] [place] [address] [place] [address] Urology 09/10/22
== END 2024-03-20 15:08 | disposition home or self-care (01) ==
PROVIDERS: PCP Family Medicine; Visit Provider Surgery
DX: Z12.11 Encounter for screening for malignant neoplasm of colon (principal)
CPT/HCPCS: 99203

== ENCOUNTER → 2024-03-20 14:50 | Outpatient (BNVA) | payer OTHER, SELFPAY | PROVIDERS: PCP Family Medicine; Visit Provider Surgery ==

== ENCOUNTER 2024-05-05 07:44 | Day surgery (SDC) | payer OTHER, SELFPAY ==
--- OUTSIDE RECORDS SUMMARY | 2024-04-19 18:33 | XMS_ITS | Encounter Summary ---
Author Organization [facility] Address [address] [place] [address] Care Team Providers Care Supervisor Product Inspection Name Role Phone Salvatore Osorio MD Primary Care Provider [phone] Mario Enriquez MD Unavailable [phone] Reason for Visit * Reason Comments Appointment Encounter Details Date Type Department Care Team (Late st Contact Info) Description 07/15/[address] [address] Brayan Cowart MD [address] [address] Appointment Social History Tobacco Use Types Packs/Day [...] on filedocumented in this encounter Care Teams Supervisor Product Inspection Relationship Specialty Start Date End Date Salvatore Osorio MD [address] [place] [address] PCP - General Family Medicine 07/15/22 Mario Enriquez MD [address] [place] [address] Urology 09/10/22 documented as of this encounter
--- OUTSIDE RECORDS SUMMARY | 2024-04-19 18:33 | XMS_ITS | Encounter Summary ---
Author Organization [facility] Address [address] [place] [address] Care Team Providers Care Horticulturalist Name Role Phone Pcp, Danika Primary Care Provider Salvatore Castillo MD Primary Care Provider Mario Enriquez MD Unavailable [phone] Reason for Visit * Reason Comments Appointment Encounter Details Date Type Department Care Team (Late st Contact Info) Description 06/19/[address] [phone] Brayan Cowart MD [address] [address] Appointment Social History Tobacco Use Types Packs/Day [...] on filedocumented in this encounter Care Teams Horticulturalist Relationship Specialty Start Date End Date Pcp, No [address] [place] [address] PCP - General 06/18/22 07/14/22 Salvatore Osorio MD [address] [place] [address] PCP - General Family Medicine 07/15/22 Mario Enriquez MD [address] [address] [place] [address] Urology 09/10/22 documented as of this encounter
--- OUTSIDE RECORDS SUMMARY | 2024-04-19 18:33 | XMS_ITS ---
Author Organization [facility] Address [address] [facility] [place] [address] Care Team Providers Care Storehouse Clerk Name Role Phone Kim Higuera Primary Care Provider Ky Kidd [phone] REASON FOR VISIT ON Encounters Encounter Location Date Provider Diagnosis [facility] [address] [place] [address] 03/08/2023 Ky Beasley Plan Of Treatment No Information Progress Notes * Gautam DAVIS PDOB: (58 yo M)Acc No.[id number]:03/08/2023 Patient:?Gautam Davis :1965???Age:58 Y???Sex:Male Address:[address] [place] [address] [place] [address] * true * Date:? Generated for [place] julio/Benedicto/eTransmitting on:?04/19/2024 06:33 PM EST
--- OUTSIDE RECORDS SUMMARY | 2024-04-19 18:33 | XMS_ITS | Clinical Summary ---
Author Organization [facility] Address [address] [place] [address] Care Team Providers Care Devulcanizer Tender Name Role Phone Salvatore Osorio MD Primary Care Provider Mario Enriquez MD Unavailable [phone] Allergies Active Allergy Reactions Criticality Noted Date [...] place to sleep or slept in a care home (including now)? No 09/09/2022 Sex and Gender [...] 9:00 AM 09/08/2022 6:15 PM Care Teams Devulcanizer Tender Relationship Specialty Start Date End Date Salvatore Osorio MD [address] [place] [address] PCP - General Family Medicine 07/15/22 Mario Enriquez MD [address] [address] [place] [address] Urology 09/10/22
--- OUTSIDE RECORDS SUMMARY | 2024-04-19 18:33 | XMS_ITS | Encounter Summary ---
Author Organization [facility] Address [address] [place] [address] Care Team Providers Care Silver Lap Machine Tender Name Role Phone Salvatore Osorio MD Primary Care Provider [phone] Mario Enriquez MD Unavailable [phone] Encounter Details Date Type Department Care Team (Late st Contact Info) Description 09/03/2022 Telephone [facility] Urologic Surgery [address] [phone] Brayan Cowart MD [address] [place] [address] Social History Tobacco Use Types Packs/Day [...] on filedocumented in this encounter Care Teams Silver Lap Machine Tender Relationship Specialty Start Date End Date Salvatore Osorio MD [address] [place] [address] PCP - General Family Medicine 07/15/22 Mario Enriquez MD [address] [address] Urology 09/10/22 documented as of this encounter
--- OUTSIDE RECORDS SUMMARY | 2024-04-19 18:33 | XMS_ITS ---
Author Organization [facility] Address [address] [place] [address] Care Team Providers Care Electrolytic De Scaler Name Role Phone Quincy Higueraistin Primary Care Provider Ky Kidd Unavailable [phone] Allergies Allergen (clinical drug ingredient) Drug/Non Drug [...] as directed A ctive Lisinopril Not-Takin g Fuitzjwgbu-FRHT-Udcbdqch Active Atorvastatin Calcium 40 MG 1 tablet [...] 024 Encounters Encounter Location Date Provider Diagnosis [facility] [address] [address] 05/27/2023 Ky Beasley Pain in left foot [...] * Gautam DAVIS PDOB: (58 yo M)Acc No.[id number]:05/27/2023 Progress Notes Patient:?Gautam Davis Provider:?Ky Beasley DPM :1965???Age:58 Y???Sex:Male Neftali e:05/27/2023 Address:[phone] Pcp:Kim Higuera Subjective: * Chief Complaints: * ???Pcp- 06/08Foot pain * HPI: ???Foot Pain:?Nature:?tingling, aching.?Location?B/L, R>L, Bottom, Forefoot.?Duration:?several weeks.?Onset/Cause:?muñiz's cyst rt knee.?Course:?intermittent.?Aggrevated:?any pressure, standing, walking.?Treatments:?custom orthoses from [facility].?Quality/Severity?mild, moderate.? 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 ?Marital status: . 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 * Medications:?TakingCialis 5 MG Tablet 1 tablet as needed Orally Once a warNsikevetnu-WEWF-Vmizmbwn Atorvastatin Calcium 40 MG Tablet 1 tablet Orally Once a dayAtenolol 50 MG Tablet Orally Lisinopril 5 MG Tablet Orally Taking Cialis 5 MG Tablet 1 tablet as needed Orally Once a dayTaking Keyczlandk-OJYJ-Rzbthjrr Taking Atorvastatin Calcium 40 MG Tablet 1 [...] as directed, 2, Refills 0.?? * Procedure Codes:?53161 X-RAY EXAM OF LEFT FOOT 3V, Modifiers: 26 , [id number] X-RAY EXAM OF RIGHT FOOT 3V, Modifiers: [...] addititon fo met pad to orthoses at [facility].? * Follow Up:?prn * Images: * Sign off status: Completed true * Provider:?Ky Beasley DPM Date:? 024 Generated for [place] julio/Benedicto/eTjosefinasmitting on:?04/19/2024 06:33 PM EST History and Physical Notes * HPI (History of Present Illness) Category Sub-Category Detail Notes Category Not es Foot Pain Aggrevated: any pressure, standing, walk ing Onset/Cause: muñiz's cyst rt knee Course: intermittent Duration: several weeks Nature: tingling, aching Treatments: custom orthoses from [facility] Quality/Severity mild, moderate Location B/L, R>L, Bottom, [...] ORIENTED: person,place, and ti me Vascular DP PULSES (B): 1/4, B/L PT PULSES (B): 2/4, B/L CAPILLARY FILL TIME: 3 secs. per digit, B/L TEMPERTURE GRADIENT (C): warm to cool, p roximal to distal, B/L TROPHIC CONDITION-TEXTURE/ELASTICITY/TURGOR/HAIR GROWTH (B): normal, B/L EDEMA (C): no edema TELANGECTASIA: absent VARICOSITIES: absent PIGMENTATION: [...]
--- OUTSIDE RECORDS SUMMARY | 2024-04-19 18:33 | XMS_ITS | Encounter Summary ---
Author Organization [facility] Address [address] [place] [address] Care Team Providers Care Transfer Clerk Name Role Phone Pcp, Danika Primary Care Provider Salvatore Castillo MD Primary Care Provider [phone] Mario Enriquez MD Unavailable [phone] Reason for Visit * Reason Comments Appointment Encounter Details Date Type Department Care Team (Late st Contact Info) Description 06/18/[address] [address] Brayan Cowart MD [address] [address] Appointment Social History Tobacco Use Types Packs/Day [...] on filedocumented in this encounter Care Teams Transfer Clerk Relationship Specialty Start Date End Date Pcp, No [address] [place] [address] PCP - General 06/18/22 07/14/22 Salvatore Osorio MD [address] [place] [address] PCP - General Family Medicine 07/15/22 Mario Enriquez MD [address] [address] [place] [address] Urology 09/10/22 documented as of this encounter
--- OUTSIDE RECORDS SUMMARY | 2024-04-19 18:34 | XMS_ITS | Patient Health Record ---
Author Organization [facility] Address [address] [facility] [place] [address] Care Team Providers Care Egg Buyer Name Role Phone Kim Higuera Primary Care Provider Ky Kidd Unavailable [phone] Allergies Allergen (clinical drug ingredient) Drug/Non Drug Allergy documented on EMR Reaction Allergy Type Onset Date Status shrimp/shell fish (uncoded) Unknown Allergy Active Reason For Referral No Information Medications Medication SIG (Take, Route, Frequency, Duration) Notes Start Date End Date Status Ttrtctsydm-LWCJ-Gayferdq Active Elmiron Not-Taking Atorvastatin Calcium 40 MG [...] Problem Acquired hammer toe of right foot (5434678050027 105) Other hammer toe(s) (acquired), right foot (M20.41) Active confirmed Problem Acquired hammer toe of left foot (5532038026916 103) Other hammer toe(s) (acquired), left foot (M20.42) Active confirmed Vital Signs Blood pressure diastolic 80 mm Hg 05/27/2023 Height 5ft 9.5in in 05/27/2023 Blood pressure systolic 120 mm Hg 05/27/2023 Weight 212 lbs 05/27/2023 BMI 30.85 kg/m2 05/27/2023 Encounters Encounter Location Date [facility] [address] [facility]/27/[facility]23 Ky Beasley Pain in left foot M79.672 ; Pain in right foot M79.671 ; Other hammer toe(s) (acquired), left foot M20.42 ; Other hammer toe(s) (acquired), right foot M20.41 ; Metatarsalgia, left foot M77.42 and Metatarsalgia, right foot M77.[address] [facility] [address] 05/27/2023 Ky Beasley Assessments Encounter Date Diagnosis [...] X ray : Foot, right 3V 05/27/2023 14146, J0702- INJECT TENDON ORIGIN/INSER T 05/06/2017 42751, J0702- Neuroma/Injection 10/22/19 13 44715, J0702- Neuroma/Injection 01/07/20 13 Insurance Providers Payer Name Payer Address Payer Phone Subscriber Number Group Number Insured Name Patient Relationship to Insured Coverage Start Date Coverage End Date [employer] ([facility]) [address] [place] [address] [id number] [facility] Gautam Sorto Self - patient is the [...]
--- OUTSIDE RECORDS SUMMARY | 2024-04-19 18:34 | XMS_ITS ---
Author Organization [facility] Address [address] [facility] [place] [address] Care Team Providers Care Ecotherapist Name Role Phone Kim Higuera Primary Care Provider Ky Kidd [phone] Encounters Encounter Location Date Provider Diagnosis [facility] [address] [place] [address] 05/27/2023 Ky Beasley Plan Of Treatment No Information Progress Notes * Gautam DAVIS PDOB: (58 yo M)Acc No.[id number]:05/27/2023 Patient:?Gautam Davis :1965???Age:58 Y???Sex:Male Address:[address] [place] [address] [place] [address] * true * Date:? Generated for Tiarrai sumanth/Benedicto/eTransmitting on:?04/19/2024 06:33 PM EST
--- OUTSIDE RECORDS SUMMARY | 2024-04-19 18:34 | XMS_ITS | Patient Health Record ---
Author Organization [facility] Address [address] [place] [address] Care Team Providers Care Taxation Economist Name Role Phone Salvatore Osorio MD Primary Care Provider UnavailMayo Dupree [phone] Allergies Allergen (clinical drug ingredient) Drug/Non Drug Allergy documented on EMR Reaction Allergy Type Onset Date Status crab allergenic extract Crab (Diagnostic) Unknown Drug All ergy Active Shrimp Flavor Unknown Drug Allergy Act leobardo Shellfish (FN) lobster (uncoded) Unknown Allergy Active Reason For Referral [...] 2 MG as directed Orally 09/10/2021 Active Immunizations Vaccine Route Administration Date Status Comme nts Influenza Unknown 01/07/2021 Administered Social History Tobacco Use: Social History Observation Description Date Details (start date - stop date) Former Smoker NA - NA Tobacco Use/Smoking Question Answer Notes Patient is [...] Monthly (2 points) Points 6 Interpretation Positive Section Notes: Nonsmoker; no sig alcohol Problems Problem Type SNOMED Code ICD Code Onset Dates Problem Status W/U Status Risk Notes Problem Esophageal reflux (296229669) Esophageal reflux (K21.9) Active confirmed Problem Gastro-esophagea l reflux disease without esophagitis (094032878) Gastro-esophage al reflux disease without esophagitis (K21.9) Active confirmed Plan Of Treatment Future Test Test Name Order Date UPPER GI ENDOSCOPY 09/10/2021 Next Appt Details Provider Name:Mayo Roche , 05/24/2024 02:00:00 PM, [address] [place] [address], [address], [place], [address], Insurance Providers Payer Name Payer Address Payer Phone Subscriber Number Group Number Insured Name Patient Relationship to Insured Coverage Start Date Coverage End Date [facility] [address] [place] [address] [phone] [id number] EBONIE BAUTISTA Self - patient is the insured Medical (General) History Medical History History ICD Code HTN Neck pain-s/p injections Neg. colonoscopy at age 49 [address] Gerardo acosta--told to repeat at age 59 Hyperlipidemia GERD BPH Denies MS,DM,CVA,Lung disease,renal dise ase Cytoscopies-interstitial cystitis Surgical History Surgery Date(Month/Year) Left and right rotator cuff Nose-deviated septum Left and right knee
[2024-05-03 14:44] VITALS: BMI 31.3
[2024-05-05 08:24] VITALS: BMI 28.9
--- NOTE | 2024-05-05 08:25 | MHC.SHP ---
Pre-Procedural Eval Section A - 24 Hr Update-Section A only Date of Service: 05/05/24 Section B - Complete if H&P > 30 days Chief Complaint: screening Details of Present Illness: for screening colonoscopy Relevant Social History: None Present Medications: see Short Stay Collaborative assessment Medical History: Significant History (prostate ca, DM arthritis) Allergies: Allergies Allergy/AdvReac Type Severity Reaction Status Date / Time CRUSTACEANS Allergy Intermediate SWELLING/DI Uncoded 03/20/24 14:57 FF.BREATHIN G shrimp/crab/lobster Allergy Unknown facial Uncoded 03/20/24 14:57 swelling Review of Systems Sugical H&P ROS: Negative: Constitution, Cardiovascular and Respiratory Exam Surgical H&P Exam: Normal: Heart, Normal: Lungs and Normal: Abdomen Plan Diagnosis/Plan: Unchanged I have reviewed the history and physical and performed a pertinent physical examination on my patient. No changes have occurred unless specified. Time Spent With Patient Time: Total time managing care of this patient today ____ minutes.
[2024-05-05 08:27] VITALS: BP 141/98; PULSE 74; RESP 16; TEMP 36.3; O2SAT 95
--- NOTE | 2024-05-05 08:33 | P.CONAN_ITS ---
Documented by User: Dia Looney NP 05/04/24 09:06 HPI - Anesthesia Eval Consult details Narrative: 59yo M for Colonoscopy with possible Polypectomy PMFSH Active Problems Active Problems: All Active Problems Colon cancer screening (Acute) Impaired fasting blood sugar (Acute) Diabetes mellitus (Acute) Erectile dysfunction associated with type 2 diabetes mellitus (Acute) Erectile dysfunction after radical prostatectomy (Acute) Cervicogenic headache (Acute) Foreign body of left wrist (Acute) Scapholunate advanced collapse of left wrist (Acute) Osteoarthritis of carpometacarpal joint of left thumb (Acute) Cubital tunnel syndrome on left (Acute) Cubital tunnel syndrome on right (Acute) Myofascial pain (Acute) Chronic neck pain (Acute) Cervical radiculitis (Acute) Osteoarthritis of left hand (Acute) Arthritis of left hand (Acute) Osteoarthritis of right ankle (Acute) Left carpal tunnel syndrome (Acute) Right carpal tunnel syndrome (Acute) Numbness and tingling of right upper extremity (Acute) Numbness and tingling of left upper extremity (Acute) Prostate cancer (Acute) Nocturia (Acute) Acute bronchitis (Acute) Impingement syndrome of right shoulder (Acute) Synovial cyst of popliteal space [Knight], right knee (Acute) Spondylosis of cervical spine (Acute) Syrinx of spinal cord (Acute) Interstitial cystitis (Acute) BPH loc w urin obs/LUTS (Chronic) Past Medical History Medical History (Updated 03/20/24 @ 15:10 by Bar Gonzalez MD) Colon cancer screening Elevated PSA Synovial cyst of popliteal space [Knight], right knee Spondylosis of cervical spine Syrinx of spinal cord BPH loc w urin obs/LUTS Interstitial cystitis BPH (benign prostatic hyperplasia) GERD (gastroesophageal reflux disease) Elevated cholesterol HTN (hypertension) Family History Family history of problems with anesthesia: No Surgical History Surgical History History of esophagogastroduodenoscopy (EGD) Hx of prostatectomy Hx of knee surgery History of nasal surgery H/O rotator cuff surgery Hx of cystoscopy Hx of colonoscopy History of Problems with Anesthesia: No Social History Social History Comment: counts correct Patient Tobacco Use Status: Former Tobacco user Use of substances other than those prescribed or required for medical reasons: No Are you DNR?: No Advance Directives: No Advance Directives Information Provided: Yes Recently lost weight without trying: No Nutrition Risks: No Nutritional Risk Poor oral hygiene: No Current occupational status: employed 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 Allergies Allergy/AdvReac Type Severity Reaction Status Date / Time CRUSTACEANS Allergy Intermediate SWELLING/DI Uncoded 03/20/24 14:57 FF.BREATHIN G shrimp/crab/lobster Allergy Unknown facial Uncoded 03/20/24 14:57 swelling Home Medications ?Medication ?Instructions ?Recorded ?Confirmed ?Last Taken ?Type amlodipine 5 mg tablet 5 mg PO DAILY 11/05/21 05/05/24 05/05/24 History atenolol 50 mg tablet 50 mg PO DAILY 11/05/21 05/05/24 05/05/24 History atorvastatin 40 mg tablet 40 mg PO DAILY 11/05/21 03/20/24 Unknown History oikgrzchmd-swbsnnwcojfsb-ygnbhqet 1 tab PO Q4H PRN Pain 11/05/21 03/20/24 Unknown History 50 mg-325 mg-40 mg tablet cyclobenzaprine 10 mg tablet 10 mg PO BEDTIME 11/05/21 03/20/24 Unknown History epinephrine 0.3 mg/0.3 mL IM allergies 11/05/21 03/20/24 Unknown History injection, auto-injector hydrocortisone valerate 0.2 % topical 11/05/21 03/20/24 Unknown History topical ointment omeprazole 20 mg capsule,delayed 20 mg PO BID 11/05/21 05/05/24 05/05/24 History release lisinopril 10 mg tablet 10 mg PO DAILY 10/20/22 03/20/24 Unknown History tizanidine 2 mg tablet 2 mg PO BID 06/30/23 03/20/24 Unknown History Exam Height,Weight and Vital Signs: Height 5 ft 9.5 in Weight 97.692 kg Assessment and Plan Assessment Anesthesia Assessment: Chart Reviewed Final Anesthetic Review Family History of Problems with Anesthesia: No History of Problems with Anesthesia: No Documented by User: Roula Mckinnon, DO 05/05/24 08:37 PMFSH Past Medical History Medical History (Updated 03/20/24 @ 15:10 by Bar Gonzalez MD) Colon cancer screening Elevated PSA Synovial cyst of popliteal space [Knight], right knee Spondylosis of cervical spine Syrinx of spinal cord BPH loc w urin obs/LUTS Interstitial cystitis BPH (benign prostatic hyperplasia) GERD (gastroesophageal reflux disease) Elevated cholesterol HTN (hypertension) Family History Family history of problems with anesthesia: No Surgical History Surgical History History of esophagogastroduodenoscopy (EGD) Hx of prostatectomy Hx of knee surgery History of nasal surgery H/O rotator cuff surgery Hx of cystoscopy Hx of colonoscopy History of Problems with Anesthesia: No Social History Social History Comment: counts correct Patient Tobacco Use Status: Former Tobacco user Use of substances other than those prescribed or required for medical reasons: No Are you DNR?: No Advance Directives: No Advance Directives Information Provided: Yes Recently lost weight without trying: No Nutrition Risks: No Nutritional Risk Poor oral hygiene: No Current occupational status: employed 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 Allergies Allergy/AdvReac Type Severity Reaction Status Date / Time CRUSTACEANS Allergy Intermediate SWELLING/DI Uncoded 03/20/24 14:57 FF.BREATHIN G shrimp/crab/lobster Allergy Unknown facial Uncoded 03/20/24 14:57 swelling Home Medications ?Medication ?Instructions ?Recorded ?Confirmed ?Last Taken ?Type amlodipine 5 mg tablet 5 mg PO DAILY 11/05/21 05/05/24 05/05/24 History atenolol 50 mg tablet 50 mg PO DAILY 11/05/21 05/05/24 05/05/24 History atorvastatin 40 mg tablet 40 mg PO DAILY 11/05/21 03/20/24 Unknown History rdyxkhfgwb-zvcndyfyvsktk-wvgabmbx 1 tab PO Q4H PRN Pain 11/05/21 03/20/24 Unknown History 50 mg-325 mg-40 mg tablet cyclobenzaprine 10 mg tablet 10 mg PO BEDTIME 11/05/21 03/20/24 Unknown History epinephrine 0.3 mg/0.3 mL IM allergies 11/05/21 03/20/24 Unknown History injection, auto-injector hydrocortisone valerate 0.2 % topical 11/05/21 03/20/24 Unknown History topical ointment omeprazole 20 mg capsule,delayed 20 mg PO BID 11/05/21 05/05/24 05/05/24 History release lisinopril 10 mg tablet 10 mg PO DAILY 10/20/22 03/20/24 Unknown History tizanidine 2 mg tablet 2 mg PO BID 06/30/23 03/20/24 Unknown History Exam Exam Date and Time: 05/05/24 0830 Height,Weight and Vital Signs: Height 5 ft 9.5 in Weight 97.692 kg Vital Signs Temperature 97.3 F 05/05/24 08:27 Pulse Rate 74 05/05/24 08:27 Respiratory Rate 16 05/05/24 08:27 Blood Pressure 141/98 H 05/05/24 08:27 Pulse Oximetry 95 05/05/24 08:27 Oxygen Delivery Method Room Air 05/05/24 08:27 Temperature 97.3 F 05/05/24 08:27 Pulse Rate 74 05/05/24 08:27 Respiratory Rate 16 05/05/24 08:27 Blood Pressure 141/98 H 05/05/24 08:27 Pulse Oximetry 95 05/05/24 08:27 Oxygen Delivery Method Room Air 05/05/24 08:27 Airway Mallampati Class: II TM Dist: >3cm Neck ROM: Full Loose/Missing/Broken Teeth: No (patient denies any loose or broken teeth) Heart: S1S2 Lungs: CTAB Assessment and Plan Assessment Anesthesia Assessment: Anesthesia Plan Discussed and Chart Reviewed Final Anesthetic Review Family History of Problems with Anesthesia: No History of Problems with Anesthesia: No NPO: Yes ASA Class: II Final Preanesthetic Review: No Changes in Pt Med Stat, Meds/Allgs Chart Reviewed, Consent Obtained/Reviewed and Anes Risks/Benef Reviewed Patient Risk: Low Procedure Risk: Low Anesthetic Plan Anesthetic Plan: MAC: and Agree w/ Assess. and Plan Disposition: Standard PACU
[2024-05-05] MEDS: Lactated Ringers 1,000 ML 100 ML IVCONT (08:34)
[2024-05-05 08:58] VITALS: BP 98/65; PULSE 65; RESP 12; TEMP 36.1; O2SAT 97
--- NOTE | 2024-05-05 08:58 | W.PM.OPN ---
Operative Note Operative Note Date of Service: 05/05/24 Narrative: Preop diagnosis: Colon cancer screening Postop diagnosis: Occasional diverticuli in the sigmoid otherwise normal colonoscopy findings Procedure: Colonoscopy Surgeon: Bar Gonzalez MD The patient is a 59-year-old male here for screening colonoscopy. He understood the technique of the planned procedure as was the risks, benefits, and alternatives. The patient was brought to the operating room and placed in left lateral decubitus position under monitored anesthesia care. A surgical time-out was done. A full digital rectal exam was done and this did not reveal any significant anal lesions. The tip of the Olympus colonoscope was gently introduced through the anal orifice advanced with insufflation all the way to the cecum. The cecum was intubated. The cecum was identified by visualization of the ileocecal valve as well as the appendiceal orifice. The cecal mucosa was unremarkable. The scope was gradually withdrawn with careful examination of the entire colonic mucosa being done with scope withdrawal. The patient had adequate bowel prep so it was unlikely that any lesion may have been missed. There was note of occasional diverticuli in the sigmoid. The rectum was reached and there were no lesions seen. The anal canal was unremarkable. The scope was then withdrawn completely with desufflation The patient tolerated procedure well. There were no immediate complications. He falls at average risk for colon cancer so his next colonoscopy may be in the next 10 years.
[2024-05-05 09:13] VITALS: BP 125/85; RESP 64; TEMP 36.1; O2SAT 95
== END 2024-05-05 09:40 | disposition home or self-care (01) ==
PROVIDERS: PCP Family Medicine; Visit Provider Surgery
PROC: 0DBE8ZZ Excision of Large Intestine, Via Natural or Artificial Opening Endoscopic (ICD-10-PCS; CPT 45378; principal; 2024-05-05 09:00)
DX: Z12.11 Encounter for screening for malignant neoplasm of colon (principal); K57.30 Diverticulosis of large intestine without perforation or abscess without bleeding; I10 Essential (primary) hypertension; E78.5 Hyperlipidemia, unspecified; Z87.891 Personal history of nicotine dependence; Z79.899 Other long term (current) drug therapy; Z79.02 Long term (current) use of antithrombotics/antiplatelets
CPT/HCPCS: 45378; J2003; J2704

== ENCOUNTER 2024-06-23 07:48 | Outpatient (AMB) | payer OTHER, SELFPAY ==
--- OUTSIDE RECORDS SUMMARY | 2024-06-23 07:51 | XMS_ITS ---
Author Organization [facility] Address [address] [place] [address] Care Team Providers Care Oil Lease Buyer Name Role Phone Salvatore Osorio MD Primary Care Provider Unavailab Mayo Smith [phone] REASON FOR VISIT cancel OV Encounters Encounter Location Date Provider Diagnosis [facility] [address] [place] [address] 05/22/2024 Mayo Roche Plan Of Treatment No Information Progress Notes * EBONIE DAVISDOB:[birth year] (59 yo M)Acc No.[id number]:05/22/2024 Patient:?EBONIE DAVIS :1965???Age:59 Y???Sex:Male Address:[address] [place] [address] [place], [address] * true * Date:? Generated for Tiarrai sumanth/Benedicto/eTransmitting on:?06/23/2024 07:51 AM EDT
--- OUTSIDE RECORDS SUMMARY | 2024-06-23 07:51 | XMS_ITS | Clinical Summary ---
Author Organization [facility] Address [address] [place] [address] Care Team Providers Care Evp Business Development Name Role Phone Salvatore Osorio MD Primary Care Provider Mario Enriquez MD Unavailable [phone] Allergies Active Allergy Reactions Criticality Noted Date Comments Crab (Diagnostic) Anaphylaxis High 09/10/2021 Other Anaphylaxis High 09/03/2022 Lobster Shrimp Flavor Agent (Non-Screening) Anaphylaxis High 09/10/2021 Medications amLODIPine (NORVASC) 5 MG tablet Take 1 tablet (5 mg total) by mouth every morning. 3 Active atenolol (TENORMIN) 50 MG tablet Take [...] mouth 2 (two) times a day. Active butalbital-acet aminophen-caffe ine (FioriCET, ESGIC) 50-325-40 mg tablet Take 1 tablet by mouth every 4 (four) hours. 3 Active acetaminophen (TYLENOL) 500 MG tablet Take 2 tablets (1,000 mg total) by mouth 4 times daily (every 6 hours) as needed for mild pain. As Needed Active sildenafil (REVATIO) 20 MG tabletIndicatio ns:Prostate cancer (HCC) Take 3-5 tabs 1 hour before sex. Take 2 pills at bedtime if no sex that day. Maximum 5 pills a day. 90 tablet 11 3 Active lisinopril (PRINIVIL,ZeSTR IL) 10 MG tablet Take 1 tablet (10 mg total) by mouth every morning. 3 Active docusate sodium (COLACE) 50 MG capsuleIndicati ons:Prostate CA (HCC) Take 1 capsule (50 mg total) by mouth 2 (two) times a day. 60 capsule 3 Active sulfamethoxazol e-trimethoprim (BACTRIM DS,SEPTRA DS) 800-160 MG per tabletIndicatio ns:Prostate CA (HCC) Take 1 tablet by mouth 2 (two) times a day. Start taking 1 day before catheter removal. 6 tablet 3 Active oxyCODONE (ROXICODONE) 5 MG immediate release tabletIndicatio ns:Prostate CA (HCC) Take 1 tablet (5 mg total) by mouth 4 times daily (every 6 hours) as needed for moderate pain or severe pain. Max Daily Amount: 20 mg 10 tablet 3 Active Active Problems Problem Noted Date Diagnosed [...] money to buy more. Never true 09/10/19 Within the past 12 months, t he [...] place to sleep or slept in a usp (including now)? No 09/09/2022 Sex and Gender Information Value Date Recorded Sex Assigned at Male 09/08/2022 8:31 AM EDT Legal Sex Male 6:12 PM EST Gender Identity Male 06/22/2022 7:20 PM EDT [...] Zoster (Shingles) Vaccine (1 of 2) 01/28/2014 COVID-19 Vaccine (1 - 2023-2 5 season) 2023 Influenza Vaccine 09/15/2024 RSV Vaccine 60 years and old er and Patients (1 - 1-dose 75+ series) 01/28/2039 Hepatitis B Vaccines Aged Out No long er eligible based on patient's age to complete this topic Insurance [facility] Advance Directives * Full Code (Latest Code Status on File) Date Activated Date Inactivated Comments 09/08/2022 6:15 PM * Full Code Date Activated Date Inactivated Comments 09/08/2022 9:00 AM 09/08/2022 6:15 PM Care Teams Evp Business Development Relationship Specialty Start Date End Date Salvatore Osorio MD [address] [place] [id number] PCP - General Family Medicine 07/15/22 Mario Enriquez MD [address] [address] RADHA [place]izondo [address] Urology 09/10/22
--- OUTSIDE RECORDS SUMMARY | 2024-06-23 07:51 | XMS_ITS | Encounter Summary ---
Author Organization [facility] Address [address] [place] [address] Care Team Providers Care Security Professionals Name Role Phone Salvatore Osorio MD Primary Care Provider Mario Enriquez MD Unavailable [phone] Encounter Details Date Type Department Care Team (Late st Contact Info) Description 09/03/2022 Telephone [facility] Urologic Surgery [address] [phone] Brayan Cowart MD [address] [place] [address] Social History Tobacco Use Types Packs/Day [...] PM EDT documented as of this encounter Functional Status * Audit-C Score Answer Date of Assessment Author 5 09/03/2022 12:33 PM EDT Nissa Kwok APRN * Question Answer Date of Assessment Author Q1: How often do you have a drink containing alcohol? 4 or more times a week 09/03/2022 12:33 PM EDT Nissa Kwok APRN Q2: How many drinks containing alcohol do you have on a typical day when you are drinking? 1 or 2 09/03/2022 12:33 PM EDT Nissa Kwok APRN Q3: How often do you have six or more drinks on one occasion? Less than monthly 09/03/2022 12:33 PM EDT Nissa Kwok APRN documented as of this encounter Plan of Treatment Not on file documented as of this encounter Visit Diagnoses Not on filedocumented in this encounter Care Teams Security Professionals Relationship Specialty Start Date End Date Salvatore Osorio MD [address] [place] [address] PCP - General Family Medicine 07/15/22 Mario Enriquez MD [address] [address] Urology 09/10/22 documented as of this encounter
--- OUTSIDE RECORDS SUMMARY | 2024-06-23 07:51 | XMS_ITS ---
Author Organization [facility] Address [address] [place] [address] Care Team Providers Care Roof Plumber Name Role Phone Salvatore Osorio MD Primary Care Provider Unavailab Mayo Smith [phone] REASON FOR VISIT new insurance Encounters Encounter Location Date Provider Diagnosis [facility] [address] [place] [phone] 05/08/2024 Mayo Roche Plan Of Treatment No Information Progress Notes * EBONIE DAVISDOB:[birth year] (59 yo M)Acc No.[id number]:05/08/2024 Patient:?EBONIE DAVIS :1965???Age:59 Y???Sex:Male Address:[address] [place] [address], [address] * true * Date:? Generated for Tiarrai sumanth/Benedicto/eTransmitting on:?06/23/2024 07:51 AM EDT
--- OUTSIDE RECORDS SUMMARY | 2024-06-23 07:51 | XMS_ITS | Encounter Summary ---
Author Organization [facility] Address [address] [place] [address] Care Team Providers Care Mechanical Reliability Engineer Name Role Phone Pcp, No Primary Care Provider Salvatore Castillo MD Primary Care Provider [phone] Mario Enriquez MD Unavailable [phone] Reason for Visit * Reason Comments Appointment Encounter Details Date Type Department Care Team (Late st Contact Info) Description 06/19/[address] [phone] Brayan Cowart MD [address] [address] Appointment Social History Tobacco Use Types Packs/Day [...] on filedocumented in this encounter Care Teams Mechanical Reliability Engineer Relationship Specialty Start Date End Date Pcp, No [address] [place] [address] PCP - General 06/18/22 07/14/22 Salvatore Osorio MD [address] [place] [address] PCP - General Family Medicine 07/15/22 Mario Enriquez MD [address] [place] [address] [place] [address] Urology 09/10/22 documented as of this encounter
--- OUTSIDE RECORDS SUMMARY | 2024-06-23 07:51 | XMS_ITS | Encounter Summary ---
Author Organization [facility] Address [address] [place] [address] Care Team Providers Care Senior Talent Management Consultant Name Role Phone Salvatore Osorio MD Primary Care Provider Mario Enriquez MD Unavailable [phone] Reason for Visit * Reason Comments Appointment Encounter Details Date Type Department Care Team (Late st Contact Info) Description 07/15/[address] [phone] Brayan Cowart MD [address] [address] Appointment Social History Tobacco Use Types Packs/Day [...] on filedocumented in this encounter Care Teams Senior Talent Management Consultant Relationship Specialty Start Date End Date Salvatore Osorio MD [address] [place] [address] PCP - General Family Medicine 07/15/22 Mario Enriquez MD [address] [address] Urology 09/10/22 documented as of this encounter
--- OUTSIDE RECORDS SUMMARY | 2024-06-23 07:51 | XMS_ITS ---
Author Organization [facility] Address [address] [place] [address] Care Team Providers Care Oil Well Service Unit Operator Name Role Phone Quincy Higueraistin Primary Care Provider Ky Kidd Unavailable [phone] Allergies Allergen (clinical drug ingredient) Drug/Non Drug [...] as directed A ctive Lisinopril Not-Takin g Ptwbnxqujn-ASDO-Xdemgyqf Active Atorvastatin Calcium 40 MG 1 tablet [...] 024 Encounters Encounter Location Date Provider Diagnosis [facility] [address] [address] 05/27/2023 Ky Beasley Pain in left foot [...] * Gautam DAVIS PDOB: (58 yo M)Acc No.[id number]:05/27/2023 Progress Notes Patient:?Gautam Davis Provider:?yK Beasley DPM :1965???Age:58 Y???Sex:Male Neftali e:05/27/2023 Address:[place] Pcp:Kim Higuera Subjective: * Chief Complaints: * ???Pcp- 06/08Foot pain * HPI: ???Foot Pain:?Nature:?tingling, aching.?Location?B/L, R>L, Bottom, Forefoot.?Duration:?several weeks.?Onset/Cause:?muñiz's cyst rt knee.?Course:?intermittent.?Aggrevated:?any pressure, standing, walking.?Treatments:?custom orthoses from [facility].?Quality/Severity?mild, moderate.? 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 ?Marital status: . 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 * Medications:?TakingCialis 5 MG Tablet 1 tablet as needed Orally Once a afmUckmbhmxku-GEBO-Bkkdozfe Atorvastatin Calcium 40 MG Tablet 1 tablet Orally Once a dayAtenolol 50 MG Tablet Orally Lisinopril 5 MG Tablet Orally Taking Cialis 5 MG Tablet 1 tablet as needed Orally Once a dayTaking Osahwiqjhz-MDRH-Htyejxjm Taking Atorvastatin Calcium 40 MG Tablet 1 [...] as directed, 2, Refills 0.?? * Procedure Codes:?59476 X-RAY EXAM OF LEFT FOOT 3V, Modifiers: 26 , [id number] X-RAY EXAM OF RIGHT FOOT 3V, Modifiers: [...] addititon fo met pad to orthoses at [facility].? * Follow Up:?prn * Images: * Sign off status: Completed true * Provider:?Ky Beasley DPM Date:? 024 Generated for [place] julio/Benedicto/eTjosefinasmitting on:?06/23/2024 07:51 AM EDT History and Physical Notes * HPI (History of Present Illness) Category Sub-Category Detail Notes Category Not es Foot Pain Aggrevated: any pressure, standing, walk ing Onset/Cause: muñiz's cyst rt knee Course: intermittent Duration: several weeks Nature: tingling, aching Treatments: custom orthoses from [facility] Quality/Severity mild, moderate Location B/L, [...]
--- OUTSIDE RECORDS SUMMARY | 2024-06-23 07:51 | XMS_ITS ---
Author Organization [facility] Address [address] [facility] [place] [address] Care Team Providers Care Credentials Specialist Name Role Phone Kim Higuera Primary Care Provider Ky Kidd [phone] REASON FOR VISIT ON Encounters Encounter Location Date Provider Diagnosis [facility] [address] [place] [address] 03/08/2023 Ky Beasley Plan Of Treatment No Information Progress Notes * Gautam DAVIS PDOB: (58 yo M)Acc No.[id number]:03/08/2023 Patient:?Gautam Davis :1965???Age:58 Y???Sex:Male Address:[address] [place] [address] [place] [address] * true * Date:? Generated for Tiarrai sumanth/Benedicto/eTransmitting on:?06/23/2024 07:51 AM EDT
--- OUTSIDE RECORDS SUMMARY | 2024-06-23 07:51 | XMS_ITS | Encounter Summary ---
Author Organization [facility] Address [address] [place] [address] Care Team Providers Care Pencils Washer Name Role Phone Pcp, No Primary Care Provider Salvatore Castillo MD Primary Care Provider [phone] Mario Enriquez MD Unavailable [phone] Reason for Visit * Reason Comments Appointment Encounter Details Date Type Department Care Team (Late st Contact Info) Description 06/18/[address] [address] Brayan Cowart MD [address] [address] Appointment Social History Tobacco Use Types Packs/Day [...] on filedocumented in this encounter Care Teams Pencils Washer Relationship Specialty Start Date End Date Pcp, No [address] [place] [address] PCP - General 06/18/22 07/14/22 Salvatore Osorio MD [address] [place] [address] PCP - General Family Medicine 07/15/22 Mario Enriquez MD [address] [place] [address] [place] [address] Urology 09/10/22 documented as of this encounter
--- OUTSIDE RECORDS SUMMARY | 2024-06-23 07:52 | XMS_ITS | Patient Health Record ---
Author Organization [facility] dianna GilE[facility] Address [address] [facility] [address] [place] [address] Care Team Providers Care Glue Mounter Operator Name Role Phone Kim Higuera Primary Care Provider Ky Kidd Unavailable [phone] Allergies Allergen (clinical drug ingredient) Drug/Non Drug Allergy documented on EMR Reaction Allergy Type Onset Date Status shrimp/shell fish (uncoded) Unknown Allergy Active Reason For Referral No Information Medications Medication SIG (Take, Route, Frequency, Duration) Notes Start Date End Date Status Rwjjquidhz-KVMB-Mgmvmhjc Active Elmiron Not-Taking Atorvastatin Calcium 40 MG [...] Problem Acquired hammer toe of right foot (3399026801259 105) Other hammer toe(s) (acquired), right foot (M20.41) Active confirmed Problem Acquired hammer toe of left foot (8761623708653 103) Other hammer toe(s) (acquired), left foot (M20.42) Active confirmed Plan Of Treatment Pending Test Test Name [...] X ray : Foot, right 3V 05/27/2023 32057, J0702- INJECT TENDON ORIGIN/INSER T 05/06/2017 11153, J0702- Neuroma/Injection 10/22/19 13 44902, J0702- Neuroma/Injection 01/07/20 13 Insurance Providers Payer Name Payer Address Payer Phone Subscriber Number Group Number Insured Name Patient Relationship to Insured Coverage Start Date Coverage End Date [facility] ([facility] [address] [place] [id number] Gautam Sorto Self - patient is [...]
--- OUTSIDE RECORDS SUMMARY | 2024-06-23 07:52 | XMS_ITS | Patient Health Record ---
Author Organization [facility] Address [address] [place] [address] Care Team Providers Care Case Checker Name Role Phone Salvatore Osorio MD Primary Care Provider UnavailMayo Dupree [phone] Allergies Allergen (clinical drug ingredient) Drug/Non Drug [...] W/U Status Risk Notes Problem Esophageal reflux (K21.9) Active confirmed Problem Gastro-esophagea l reflux disease without esophagitis (807528545) Gastro-esophage al reflux disease without esophagitis (K21.9) Active confirmed Encounters Encounter Location Date Provider Diagnosis [facility] [address] [place] [address] 05/08/2024 Mayo Roche [facility] [address] [place] [address] 05/22/2024 Mayo Roche Plan Of Treatment Future Test Test Name Order Date UPPER GI ENDOSCOPY 09/10/2021 Insurance Providers Payer Name Payer Address Payer Phone Subscriber Number Group Number Insured Name Patient Relationship to Insured Coverage Start Date Coverage End Date [facility] [address] [place] [id number] [phone] [id number] EBONIE BAUTISTA Self - patient is the insured Medical (General) History Medical History History ICD Code HTN Neck pain-s/p injections Neg. colonoscopy at age 49 [address] Gerardo acosta--told to repeat at age 59 Hyperlipidemia GERD BPH Denies TX,DM,CVA,Lung disease,renal dise ase Cytoscopies-interstitial cystitis Surgical History Surgery Date(Month/Year) Left and right rotator cuff Nose-deviated septum Left and right knee
--- OUTSIDE RECORDS SUMMARY | 2024-06-23 07:52 | XMS_ITS ---
Author Organization [facility] Address [address] [place] [address] Care Team Providers Care Card Cleaner Name Role Phone Salvatore Osorio MD Primary Care Provider Unavailab Mayo Smith [phone] REASON FOR VISIT Patient presents today for a colon screening Encounters Encounter Location Date Provider Diagnosis [facility] [address] [address] 05/24/2024 Mayo Roche Plan Of Treatment No Information Progress Notes * EBONIE DAVISDOB:[birth year] (59 yo M)Acc No.[id number]:05/24/2024 Progress Notes Patient:?RYAN EBONIE Provider:?Mayo Roche MD :1965???Age:59 Y???Sex:Male Neftali e:05/24/2024 Address:[address] [place], [place] [address] Pcp:Salvatore Osorio MD Subjective: * Chief Complaints: * ???1. Patient presents today for a colon screening. * Medical History:? Objective: * Vitals:? Assessment: Plan: * Treatment: * * The named appointment provid er may or may not be the originator of this progress note, and it is not deemed complete until electronically signed by the appointment provider. Sign off status: Pending * Provider:?Mayo Roche MD Date:? 025 Generated for [place] julio/Benedicto/eTransmitting on:?06/23/2024 07:52 AM EDT
--- OUTSIDE RECORDS SUMMARY | 2024-06-23 07:52 | XMS_ITS ---
Author Organization [facility] Address [address] [facility] [place] [address] Care Team Providers Care Workers' Compensation Hearings Officer Name Role Phone Kim Higuera Primary Care Provider Ky Kidd [phone] Encounters Encounter Location Date Provider Diagnosis [facility] [address] [place] [address] 05/27/2023 Ky Beasley Plan Of Treatment No Information Progress Notes * Gautam DAVIS PDOB: (58 yo M)Acc No.[id number]:05/27/2023 Patient:?Gautam Davis :1965???Age:58 Y???Sex:Male Address:[address] [place] [address] [place] [address] * true * Date:? Generated for Printi sumanth/Benedicto/eTransmitting on:?06/23/2024 07:51 AM EDT
--- NOTE | 2024-06-23 08:05 | A.OFFVIS_ITS ---
Vital Signs 06/23/24 08:16 Height 5 ft 9 in Weight 200 lb BMI 29.5 BP 148/80 H Blood Pressure Location Rt brachial Position Sitting Pulse 70 Pulse Source Pulse Oximeter Pulse Oximetry (%) 96 Oxygen Delivery Method Room Air Intake Visit Reasons: gerd Intake Note: ESTABLISHED PATIENT for GERD initial eval. Previous pt of [facility] but does not want to see Dr. Roche anymore. Previous EGD 2021. Chief Complaint; CO worsening reflux and hiatal hernia concerns. Pt reports onset x2 mos when he noticed his reflux suddenly worsen and no longer responded to his PPI therapy. Pt also reports feeling a lump which is painful to palp shortly after noticing his reflux became worse. No additional concerns at this time. Farmworker Machine Required: No Accompanied by: Self / Same As Patient Allergies CRUSTACEANS Allergy (Intermediate, Uncoded 06/23/24 08:09) SWELLING/DIFF.BREATHING shrimp/crab/lobster Allergy (Unknown, Uncoded 06/23/24 08:09) facial swelling HPI HPI gerd: Details: UPPER ENDOSCOPY WITH DR. ROCHE 11/07/2021 PLAN: The results of the biopsies will be checked. At this point, I have advised him to continue his daily omeprazole as he reports that is working well for his reflux symptoms. He would otherwise see me on a p.r.n. basis but will be due for his next screening colonoscopy in 3 years. He will see me otherwise on a p.r.n. basis. This has been discussed with his . PATHOLOGY RESULTS Diagnosis Esophagogastric junction, at 38 cm, biopsy: Squamocolumnar mucosa with mild chronic active inflammation; negative for intestinal metaplasia and dysplasia TODAY'S VISIT 5 years old male with a past medical history of arthritis, prostate cancer, bronchitis, interstitial cystitis is here today for initial consultation. Patient was seen in the past by Dr. Roche, as mentioned above patient had upper endoscopy back in October of 2021. Patient has been on omeprazole 20 mg twice a day for several years. In the past 2 months patient's symptoms have been worsening. Patient reports epigastric pain and tenderness. No matter what he eats pain is there almost all the time. Patient reports that he changed his diet, lost weight after being diagnosed with prostate cancer. Status post surgery no need for radiation therapy. Patient reports occasional dyspepsia without dysphagia or odynophagia. Reports feeling gassy PFSH Medical History Colon cancer screening Elevated PSA Synovial cyst of popliteal space [Knight], right knee Spondylosis of cervical spine Syrinx of spinal cord BPH loc w urin obs/LUTS Interstitial cystitis BPH (benign prostatic hyperplasia) GERD (gastroesophageal reflux disease) Elevated cholesterol HTN (hypertension) Surgical History History of esophagogastroduodenoscopy (EGD) Hx of prostatectomy Hx of knee surgery History of nasal surgery H/O rotator cuff surgery Hx of cystoscopy Hx of colonoscopy Social History Comment: counts correct Patient Tobacco Use Status: Former Tobacco user Current occupational status: employed 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 Review of Systems Const Denies weight gain and Denies weight loss ENT Reports no additional complaints, Denies dysphagia and Denies odynophagia Card Reports no additional complaints Resp Reports no additional complaints GI Denies abdominal pain, Reports belching, Denies melena, Denies bloating, Denies change in bowel habits, Denies dysphagia, Denies excessive flatus, Denies dyspepsia, Reports heartburn, Denies diarrhea, Denies loose stools, Denies nausea, Denies odynophagia and Denies vomiting Reports no additional complaints Musc Reports no additional complaints Neuro Reports no additional complaints Psych Reports no additional complaints Endo Reports no additional complaints Physical Exam Vital Signs: Last Vital Signs Pulse 70 06/23/24 08:16 BP 148/80 H 06/23/24 08:16 Pulse Ox 96 06/23/24 08:16 Oxygen Delivery Method Room Air 06/23/24 08:16 BMI result Body Mass Index 29.5 Const General: healthy appearing, no acute distress and well developed Nutritional Appearance: well nourished Orientation/consciousness: patient oriented x3 Resp Effort & Inspection: normal respiratory effort, able to speak in complete sentences, no tracheal deviation and symmetric chest movement Auscultation: clear to auscultation bilaterally Cardio Rate: regular rate GI Inspection: Yes normal to inspection and No distended Palpation (GI): Soft to palpation, not firm, nontender and No hepatosplenomegaly present Auscultation: normal bowel sounds General: Yes no CVA tenderness Back/Spine/Pelvis Back: no CVA tenderness Skin General skin exam: elasticity normal, turgor normal and dry skin Neuro General: patient oriented x3 Psych Appearance: grossly normal Mental Status: mental status grossly normal Assessment & Plan Assessment & Plan (1) Postprandial epigastric pain: Code(s): R10.13 - Epigastric pain (2) GERD (gastroesophageal reflux disease): Code(s): K21.9 - Gastro-esophageal reflux disease without esophagitis Qualifiers: Esophagitis presence: esophagitis presence not specified Qualified Code(s): K21.9 - Gastro-esophageal reflux disease without esophagitis (3) Postprandial abdominal bloating: Code(s): R14.0 - Abdominal distension (gaseous) Plan Will check transglutaminase and lipase. Patient will be sent for upper GI with barium swallow. Will set him up for upper endoscopy. Patient will start taking Nexium and stop omeprazole. Avoid dietary triggers and late night snacking. Staying upright for minimum 3 hours after meals discussed with patient. Patient will return after the procedure, sooner on as needed basis. He is agreeable to this plan and verbalizes understanding of instructions. He was given the opportunity to ask questions and all questions answered. Thank you for allowing me to participate in his care Orders: Orders Transglutaminase IgA Today R10.9 - Unspecified abdominal pain FL upper GI w Ba Swallow Today K21.9 - Gastro-esophageal reflux disease without esophagitis Lipase Today R10.9 - Unspecified abdominal pain Medications: New esomeprazole magnesium (Nexium) 40 mg PO DAILY 30 caps 2RF K21.9 - Gastro- esophageal reflux disease without esophagitis Coding Level of Care Code New Pt Level 4 (03160) Diagnoses Postprandial epigastric pain R10.13 Gastroesophageal reflux disease, unspecified whether esophagitis present K21.9 Esophagitis presence: esophagitis presence not specified Postprandial abdominal bloating R14.0 Time Spent (min) 45 Comment 30 minutes spent with patient and additional 15 minutes spent reviewing his records
[2024-06-23 08:16] VITALS: BP 148/80; PULSE 70; O2SAT 96; BMI 29.5
== END 2024-06-23 08:41 | disposition home or self-care (01) ==
LOC: HO.HGI 07:49
PROVIDERS: PCP Family Medicine; Visit Provider Nurse Practitioner Family
DX: R10.13 Epigastric pain (principal); K21.9 Gastro-esophageal reflux disease without esophagitis; R14.0 Abdominal distension (gaseous)
CPT/HCPCS: 99204

== ENCOUNTER → 2024-06-23 07:48 | Outpatient (BNVA) | payer OTHER, SELFPAY | PROVIDERS: PCP Family Medicine; Visit Provider Nurse Practitioner Family ==

== ENCOUNTER → 2024-06-26 13:07 | Outpatient (BNVA) | payer OTHER, SELFPAY | PROVIDERS: PCP Family Medicine; Visit Provider Physician Assistant Medical | DX: T15.01XA Foreign body in cornea, right eye, initial encounter (principal) | CPT/HCPCS: 92002; 99203 ==

== ENCOUNTER 2024-07-03 07:19 | Outpatient (REF) | payer OTHER, SELFPAY ==
--- OUTSIDE RECORDS SUMMARY | 2024-07-03 07:21 | XMS_ITS | Encounter Summary ---
Author Organization [facility] Address [address] [place] [address] Care Team Providers Care Motorcycle Subassembler Name Role Phone Salvatore Osorio MD Primary Care Provider Mario Enriquez MD Unavailable [phone] Reason for Visit * Reason Comments Appointment Encounter Details Date Type Department Care Team (Late st Contact Info) Description 07/15/[address] [address] Brayan Cowart MD [address] [address] Appointment Social History Tobacco Use Types Packs/Day [...] on filedocumented in this encounter Care Teams Motorcycle Subassembler Relationship Specialty Start Date End Date Salvatore Osorio MD [address] [place] [address] PCP - General Family Medicine 07/15/22 Mario Enriquez MD [address] [address] Urology 09/10/22 documented as of this encounter
--- OUTSIDE RECORDS SUMMARY | 2024-07-03 07:21 | XMS_ITS | Encounter Summary ---
Author Organization [facility] Address [address] [place] [address] Care Team Providers Care Senior Quality Methods Specialist Name Role Phone Pcp, No Primary Care Provider Salvatore Castillo MD Primary Care Provider [phone] Mario Enriquez MD Unavailable [phone] Reason for Visit * Reason Comments Appointment Encounter Details Date Type Department Care Team (Late st Contact Info) Description 06/18/[address] [address] Brayan Cowart MD [address] [address] Appointment Social History Tobacco Use Types Packs/Day [...] filedocumented in this encounter Care Teams Senior Quality Methods Specialist Relationship Specialty Start Date End Date Pcp, No [address] [place] [address] PCP - General 06/18/22 07/14/22 Salvatore Osoiro MD [address] [place] [address] PCP - General Family Medicine 07/15/22 Mario Enriquez MD [address] [place] [address] [place] [address] Urology 09/10/22 documented as of this encounter
--- OUTSIDE RECORDS SUMMARY | 2024-07-03 07:21 | XMS_ITS ---
Author Organization [facility] Address [address] [facility] [place] [address] Care Team Providers Care Bag Machine Helper Name Role Phone Kim Higuera Primary Care Provider Ky Kidd [phone] REASON FOR VISIT ON Encounters Encounter Location Date Provider [facility] [address] [place] [address] 03/08/2023 Ky Beasley Plan Of Treatment No Information Progress Notes * Gautam DAVIS PDOB: (58 yo M)Acc No.[id number]:03/08/2023 Patient:?Gautam Davis :1965???Age:58 Y???Sex:Male Address:[address] [place] [address] [place] [address] * true * Date:? Generated for Tiarrai sumanth/Benedicto/eTransmitting on:?07/03/2024 07:21 AM EDT
--- OUTSIDE RECORDS SUMMARY | 2024-07-03 07:21 | XMS_ITS ---
Author Organization [facility] Address [address] [place] [address] Care Team Providers Care Or First Assist Registered Nurse Name Role Phone Salvatore Osorio MD Primary Care Provider Unavailab Mayo Smith [phone] REASON FOR VISIT cancel OV Encounters Encounter Location Date Provider Diagnosis [facility] [address] [place] [address] 05/22/2024 Mayo Roche Plan Of Treatment No Information Progress Notes * EBONIE DAVISDOB:[birth year] (59 yo M)Acc No.[id number]:05/22/2024 Patient:?EBONIE DAVIS :1965???Age:59 Y???Sex:Male Address:[address] [place] [address] [place], [address] * true * Date:? Generated for Printi sumanth/Benedicto/eTransmitting on:?07/03/2024 07:21 AM EDT
--- OUTSIDE RECORDS SUMMARY | 2024-07-03 07:21 | XMS_ITS | Encounter Summary ---
Author Organization [facility] Address [address] [place] [address] Care Team Providers Care Bowling Alley Floors Installer Name Role Phone Pcp, No Primary Care Provider Salvatore Castillo MD Primary Care Provider [phone] Mario Enriquez MD Unavailable [phone] Reason for Visit * Reason Comments Appointment Encounter Details Date Type Department Care Team (Late st Contact Info) Description 06/19/[address] [address] Brayan Cowart MD [address] [address] Appointment Social History Tobacco Use Types Packs/Day [...] on filedocumented in this encounter Care Teams Bowling Alley Floors Installer Relationship Specialty Start Date End Date Pcp, No [address] [place] [address] PCP - General 06/18/22 07/14/22 Salvatore Osorio MD [address] [place] [address] PCP - General Family Medicine 07/15/22 Mario Enriquez MD [address] [place] [address] [place] [address] Urology 09/10/22 documented as of this encounter
--- OUTSIDE RECORDS SUMMARY | 2024-07-03 07:21 | XMS_ITS | Encounter Summary ---
Author Organization [facility] Address [address] [place] [address] Care Team Providers Care Electrical Electronics Technician Name Role Phone Salvatore Osorio MD Primary Care Provider Mario Enriquez MD Unavailable [phone] Encounter Details Date Type Department Care Team (Late st Contact Info) Description 09/03/2022 Telephone [facility] Urologic Surgery [address] [phone] Brayan Cowart MD [address] [place] [address] Social History Tobacco Use Types Packs/Day [...] on filedocumented in this encounter Care Teams Electrical Electronics Technician Relationship Specialty Start Date End Date Salvatore Osorio MD [address] [place] [address] PCP - General Family Medicine 07/15/22 Mario Enriquez MD [address] [address] Urology 09/10/22 documented as of this encounter
--- OUTSIDE RECORDS SUMMARY | 2024-07-03 07:22 | XMS_ITS ---
Author Organization [facility] Address [address] [place] [address] Care Team Providers Care House Admin Name Role Phone Kim Higuera Primary Care Provider Ky Kidd [phone] Encounters Encounter Location Date Provider Diagnosis [facility] [address] [place] [address] 05/27/2023 Ky Beasley Plan Of Treatment No Information Progress Notes * Gautam DAVIS PDOB: (58 yo M)Acc No.[id number]:05/27/2023 Patient:?Gautam Davis :1965???Age:58 Y???Sex:Male Address:[address] [place] [address] [place] [address] * true * Date:? Generated for Printi ng/Famikaylag/eTransmitting on:?07/03/2024 07:21 AM EDT
--- OUTSIDE RECORDS SUMMARY | 2024-07-03 07:22 | XMS_ITS ---
Author Organization [facility] Address [address] [place] [address] Care Team Providers Care Reactor Service Operator Name Role Phone Quincy Higueraistin Primary Care Provider Ky Kidd Unavailable [phone] Allergies Allergen (clinical drug ingredient) Drug/Non Drug [...] as directed A ctive Lisinopril Not-Takin g Zincgapuxa-EIAT-Naihuens Active Atorvastatin Calcium 40 MG 1 tablet [...] 024 Encounters Encounter Location Date Provider Diagnosis [facility] [address] [address] 05/27/2023 Ky Beasley Pain in left foot [...] * Gautam DAVIS PDOB: (58 yo M)Acc No.[id number]:05/27/2023 Progress Notes Patient:?Gautam Davis Provider:?Ky Beasley DPM :1965???Age:58 Y???Sex:Male Neftali e:05/27/2023 Address:[phone] Pcp:Kim Higuera Subjective: * Chief Complaints: * ???Pcp- 06/08Foot pain * HPI: ???Foot Pain:?Nature:?tingling, aching.?Location?B/L, R>L, Bottom, Forefoot.?Duration:?several weeks.?Onset/Cause:?muñiz's cyst rt knee.?Course:?intermittent.?Aggrevated:?any pressure, standing, walking.?Treatments:[facility].?Quality/Severity?mild, moderate.? 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 ?Marital status: . 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 * Medications:?TakingCialis 5 MG Tablet 1 tablet as needed Orally Once a nzcQhzyxaqous-XZAJ-Nzbrqouf Atorvastatin Calcium 40 MG Tablet 1 tablet Orally Once a dayAtenolol 50 MG Tablet Orally Lisinopril 5 MG Tablet Orally Taking Cialis 5 MG Tablet 1 tablet as needed Orally Once a dayTaking Nvhwwfqvwi-CRGK-Czgjkkka Taking Atorvastatin Calcium 40 MG Tablet 1 [...] as directed, 2, Refills 0.?? * Procedure Codes:?57679 X-RAY EXAM OF LEFT FOOT 3V, Modifiers: 26 , [id number] X-RAY EXAM OF RIGHT FOOT 3V, Modifiers: [...] addititon fo met pad to orthoses at [facility].? * Follow Up:?prn * Images: * Sign off status: Completed true * Provider:?Ky Beasley DPM Date:? 024 Generated for [place] julio/Benedicto/eTjosefinasmitting on:?07/03/2024 07:21 AM EDT History and Physical Notes * HPI (History of Present Illness) Category Sub-Category Detail Notes Category Not es Foot Pain Aggrevated: any pressure, standing, walk ing Onset/Cause: muñiz's cyst rt knee Course: intermittent Duration: several weeks Nature: tingling, aching Treatments: [facility] Quality/Severity mild, moderate Location B/L, R>L, [...]
--- OUTSIDE RECORDS SUMMARY | 2024-07-03 07:22 | XMS_ITS | Patient Health Record ---
Author Organization [facility] Address [address] [place] [address] Care Team Providers Care Compensation Coordinator Name Role Phone Salvatore Osorio MD Primary Care Provider UnavailMayo Dupree [phone] Allergies Allergen (clinical drug ingredient) Drug/Non Drug [...] Problem Gastro-esophagea l reflux disease without esophagitis (232242083) Gastro-esophage al reflux disease without esophagitis (K21.9) Active confirmed Encounters Encounter Location Date Provider Diagnosis [facility] [address] [place] [address] 05/08/2024 Mayo Roche [facility] [address] [place] [address] 05/22/2024 Mayo Roche Plan Of Treatment Future Test Test Name Order Date UPPER GI ENDOSCOPY 09/10/2021 Insurance Providers Payer Name Payer Address Payer Phone Subscriber Number Group Number Insured Name Patient Relationship to Insured Coverage Start Date Coverage End Date [facility] [address] [place] [id number] EBONIE BAUTISTA Self - patient is the insured Medical (General) History Medical History History ICD Code HTN Neck pain-s/p injections Neg. colonoscopy at age 49 [address] Gerardo acosta--told to repeat at age 59 Hyperlipidemia GERD BPH Denies SC,DM,CVA,Lung disease,renal dise ase Cytoscopies-interstitial cystitis Surgical History Surgery Date(Month/Year) Left and right rotator cuff Nose-deviated septum Left and right knee
--- OUTSIDE RECORDS SUMMARY | 2024-07-03 07:22 | XMS_ITS | Clinical Summary ---
Author Organization [facility] Address [address] [place] [address] Care Team Providers Care Assurance Associate Name Role Phone Salvatore Osorio MD Primary Care Provider [phone] Mario Enriquez MD Unavailable [phone] Allergies Active Allergy Reactions Criticality Noted Date [...] place to sleep or slept in a fpc (including now)? No 09/09/2022 Sex and Gender [...] patient's age to complete this topic Insurance [facility] Advance Directives * Full Code (Latest Code Status on File) Date Activated Date Inactivated Comments 09/08/2022 6:15 PM * Full Code Date Activated Date Inactivated Comments 09/08/2022 9:00 AM 09/08/2022 6:15 PM Care Teams Assurance Associate Relationship Specialty Start Date End Date Salvatore Osorio MD [address] [place] [address] PCP - General Family Medicine 07/15/22 Mario Enriquez MD [address] [address] [place] [address] Urology 09/10/22
--- OUTSIDE RECORDS SUMMARY | 2024-07-03 07:22 | XMS_ITS | Patient Health Record ---
Author Organization [facility] Address [address] [place] [address] Care Team Providers Care Lei Maker Name Role Phone Kim Higuera Primary Care Provider Ky Kidd Unavailable [phone] Allergies Allergen (clinical drug ingredient) Drug/Non Drug Allergy documented on EMR Reaction Allergy Type Onset Date Status shrimp/shell fish (uncoded) Unknown Allergy Active Reason For Referral No Information Medications Medication SIG (Take, Route, Frequency, Duration) Notes Start Date End Date Status Ascfiajsnm-QYHY-Ayxegiig Active Elmiron Not-Taking Atorvastatin Calcium 40 MG [...] Problem Acquired hammer toe of right foot (1657620873674 105) Other hammer toe(s) (acquired), right foot (M20.41) Active confirmed Problem Acquired hammer toe of left foot (4796920579738 103) Other hammer toe(s) (acquired), left foot [...] X ray : Foot, right 3V 05/27/2023 67925, J0702- INJECT TENDON ORIGIN/INSER T 05/06/2017 20348, J0702- Neuroma/Injection 10/22/19 13 42361, J0702- Neuroma/Injection 01/07/20 13 Insurance Providers Payer Name Payer Address Payer Phone Subscriber Number Group Number Insured Name Patient Relationship to Insured Coverage Start Date Coverage End Date [facility] ([facility]) [address] [place] [id number] [phone] [id number] Gautam Sorto Self - patient is [...]
--- OUTSIDE RECORDS SUMMARY | 2024-07-03 07:22 | XMS_ITS ---
Author Organization [facility] Address [address] [place] [address] Care Team Providers Care Medicaid Business Analyst Name Role Phone Salvatore Osorio MD Primary Care Provider Unavailab Mayo Smith [phone] REASON FOR VISIT new insurance Encounters Encounter Location Date Provider Diagnosis [facility] [address] [place] [address] 05/08/2024 Mayo Roche Plan Of Treatment No Information Progress Notes * EBONIE DAVISDOB:[birth year] (59 yo M)Acc No.[id number]:05/08/2024 Patient:?EBONIE DAVIS :1965???Age:59 Y???Sex:Male Address:[address] [place] [address], [address] * true * Date:? Generated for Tiarrai sumanth/Benedicto/eTransmitting on:?07/03/2024 07:21 AM EDT
--- OUTSIDE RECORDS SUMMARY | 2024-07-03 07:22 | XMS_ITS ---
Author Organization [facility] Address [address] [place] [address] Care Team Providers Care Bath Steward Name Role Phone Salvatore Osorio MD Primary Care Provider Unavailab Mayo Smith [phone] REASON FOR VISIT Patient presents today for a colon screening Encounters Encounter Location Date Provider Diagnosis [facility] [address] [place] [address] 05/24/2024 Mayo Roche Plan Of Treatment No Information Progress Notes * EBONIE DAVISDOB:[birth year] (59 yo M)Acc No.[id number]:05/24/2024 Progress Notes Patient:?RYAN EBONIE Provider:?Mayo Roche MD :1965???Age:59 Y???Sex:Male Neftali e:05/24/2024 Address:[address] [place], [place] [phone] Pcp:Salvatore Osorio MD Subjective: * Chief Complaints: [...] MD Date:? 025 Generated for [place] julio/Benedicto/eTransmitting on:?07/03/2024 07:22 AM EDT
[2024-07-03 10:44] LABS: Lipase 25 U/L (8-78)
[2024-07-03 11:13] LABS: Prostate Specific Antigen < 0.10 ng/mL (<0.05-4.0)
[2024-07-04 20:04] LABS: Transglutaminase IgA <1.0 U/mL
[2024-07-07 23:43] LABS: Testosterone, Total 278 ng/dL (250-1100)
== END 2024-07-03 07:20 | disposition home or self-care (01) ==
LOC: HO.HMGCLDS 07:19
PROVIDERS: PCP Family Medicine; Referring Provider Nurse Practitioner Family; Visit Provider Urology
DX: N52.31 Erectile dysfunction following radical prostatectomy (principal); R10.9 Unspecified abdominal pain; Z12.5 Encounter for screening for malignant neoplasm of prostate
CPT/HCPCS: 36415; 83690; 84153; 84403; 86364

== ENCOUNTER 2024-07-07 11:34 | Outpatient (AMB) | payer OTHER, SELFPAY ==
--- OUTSIDE RECORDS SUMMARY | 2024-07-07 11:37 | XMS_ITS | Encounter Summary ---
Author Organization [facility] Address [address] [place] [address] Care Team Providers Care Combatant Diver Qualified Name Role Phone Salvatore Osorio MD Primary Care Provider Mario Enriquez MD Unavailable [phone] Reason for Visit * Reason Comments Appointment Encounter Details Date Type Department Care Team (Late st Contact Info) Description 07/15/[address] [address] Brayan Cowart MD [address] [address] Appointment Social History Tobacco Use Types Packs/Day [...] on filedocumented in this encounter Care Teams Combatant Diver Qualified Relationship Specialty Start Date End Date Salvatore Osorio MD [address] [place] [address] PCP - General Family Medicine 07/15/22 Mario Enriquez MD [address] [address] Urology 09/10/22 documented as of this encounter
[2024-07-07 11:50] VITALS: BMI 29.5
--- NOTE | 2024-07-07 11:50 | A.OFFVIS_ITS ---
Vital Signs 07/07/24 11:50 Height 5 ft 9 in Weight 200 lb BMI 29.5 Intake Visit Reasons: 4m/labs Intake Note: Martin 59 yr old male presents today for his 4 month follow up Allergies CRUSTACEANS Allergy (Intermediate, Uncoded 06/23/24 08:09) SWELLING/DIFF.BREATHING shrimp/crab/lobster Allergy (Unknown, Uncoded 06/23/24 08:09) facial swelling HPI Comments Details: Martin is a pleasant male. He is a patient of Dr. Higuera. He seen for the following urologic conditions - elevated PSA - prostate cancer PSA remains low Four month follow-up Is consciously lost 35 lb PSA - 02/06 <0.1, 05/08 <0.1, 08/08 <0.1, 11/08 <0.1, 03/11 <0.1, 07/09 <0.1 T 278 borderline Continue interval surveillance - testosterone lab since diabetic with HbA1c 6.3 Recommend Abbot Lingo Switch to six-month follow-up as has been clear for 2 years Prostate cancer -grade group 5, high-volume 05/07 - RALP 09/[address] Enriquez 05/07 for PSA 7.1 with free PSA 18% Initial therapy robotic prostatectomy Dr Cowart [facility] 09/06 - genetics negative Clinical T1c, TRUS prostate size 35 g Histologic type: Adenocarcinoma, acinar type Manuela score: 9 (4+5) (left base lateral, left base medial, left mid lateral,left mid medial, left apex lateral, and left apex medial), 7 (3+4) (right base medial), 6 (3+3) (right base lateral) Tumor quantitation: Number cores positive: 8 Total number of cores: 15 - % of tissue involved: 44 % - 640/1600 Periprostatic fat inv.: Not identified Seminal vesicle inv.: Not identified Perineural inv.: Present Lymphovascular invasion: Not identified Staging - 06/07 PSMA PET-CT - isolated left side prostate activity - 06/07 MRI - multiple prostate lesions PiRADs 5 with apparent SHERRY to involve neurovascular bundles, no evidence for seminal vesicle involvement PFSH Medical History Colon cancer screening Elevated PSA Synovial cyst of popliteal space [Knight], right knee Spondylosis of cervical spine Syrinx of spinal cord BPH loc w urin obs/LUTS Interstitial cystitis BPH (benign prostatic hyperplasia) GERD (gastroesophageal reflux disease) Elevated cholesterol HTN (hypertension) Surgical History History of esophagogastroduodenoscopy (EGD) Hx of prostatectomy Hx of knee surgery History of nasal surgery H/O rotator cuff surgery Hx of cystoscopy Hx of colonoscopy Social History Comment: counts correct Patient Tobacco Use Status: Former Tobacco user Current occupational status: employed 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 Review of Systems Const Denies chills and Denies fever(s) Card Reports no additional complaints and Denies syncope Resp Denies cough GI Denies abdominal pain and Denies heartburn Reports as per HPI and Denies change in libido Neuro Denies syncope Psych Denies change in libido Endo Denies change in libido Physical Exam Vital Signs: BMI result Body Mass Index 29.5 Const General: cooperative, healthy appearing, comfortable and no acute distress Orientation/consciousness: patient oriented x3 HEENT Face and sinus: Yes normal facial exam Mouth: moist mucous membranes Neck Neck: Yes normal visual inspection, Yes full ROM and Yes trachea midline Chest Chest palpation & inspection: normal inspection of the chest Resp Effort & Inspection: normal respiratory effort, able to speak in complete sentences and no respiratory distress GI Inspection: Yes normal to inspection Back/Spine/Pelvis Cervical Spine: normal cervical lordosis Thoracic/Lumbar Spine: thoracic and lumbar spine normal to inspection Skin General skin exam: no rashes or lesions noted Neuro General: patient oriented x3, gait normal, tone normal and moves all extremities Extrem General: Yes normal to inspection and Yes capillary refill normal Assessment & Plan Assessment & Plan (1) Prostate cancer: Comment: 05/07 high-grade, high-volume Code(s): C61 - Malignant neoplasm of prostate Category: Medical (2) Erectile dysfunction associated with type 2 diabetes mellitus: Code(s): E11.69 - Type 2 diabetes mellitus with other specified complication; N52.1 - Erectile dysfunction due to diseases classified elsewhere Category: Medical (3) Nocturia: Code(s): R35.1 - Nocturia Category: Medical Plan Six-month follow-up PSA Orders: Orders Prostate Specific Antigen 6 Months C61 - Malignant neoplasm of prostate Testosterone, Total 6 Months C61 - Malignant neoplasm of prostate Patient Instructions: This note is constructed using voice recognition software. While every effort has been made to ensure accuracy web site administrator errors may have been included. Imaging studies, laboratory and physical exam results were discussed and revie wed in detail. No major barriers to patient understanding were identified. An opportunity to ask questions regarding the treatment plan was provided. All questions were answered. The patient expressed understanding and agreement with the above treatment plan. The patient is aware they should contact our office by phone for worsening of their current condition or the appearance of new urologic symptoms. Compliance is encouraged with any medications and followup testing that is ordered. It is a privilege to participate in the urologic care of your patient. If you have any questions or concerns regarding treatment for the above conditions, or other urologic issues, please do not hesitate to contact me. The office telephone contact is [phone]. Sincerely, Dr Mario Enriquez MD, [facility] - Urology Compassionate Specialist Care for the Genitourinary System Coding Level of Care Code Est Pt Level 3 (75888) Complex EM visit Add On G2211 Diagnoses Prostate cancer C61 Erectile dysfunction associated with type 2 diabetes mellitus E11.69; N52.1 Nocturia R35.1
== END 2024-07-07 12:08 | disposition home or self-care (01) ==
LOC: HO.HUSH 11:35
PROVIDERS: PCP Family Medicine; Visit Provider Urology
DX: C61 Malignant neoplasm of prostate (principal); E11.69 Type 2 diabetes mellitus with other specified complication; N52.1 Erectile dysfunction due to diseases classified elsewhere; R35.1 Nocturia
CPT/HCPCS: 99213

== ENCOUNTER → 2024-07-07 11:34 | Outpatient (BNVA) | payer OTHER, SELFPAY | PROVIDERS: PCP Family Medicine; Visit Provider Urology ==

== ENCOUNTER → 2024-09-28 14:59 | Outpatient (BNVA) | payer OTHER, SELFPAY | PROVIDERS: PCP Family Medicine; Visit Provider Physician Assistant Medical | DX: Z02.79 Encounter for issue of other medical certificate (principal) ==

== ENCOUNTER 2024-10-05 08:51 | Outpatient (REF) | payer OTHER, SELFPAY ==
--- OUTSIDE RECORDS SUMMARY | 2024-05-24 10:00 | XMS_ITS ---
Author Organization [facility] Address [address] [place] [address] Care Team Providers Care Carpenter Bridge Name Role Phone Salvatore Osorio MD Primary Care Provider UnavailMayo Dupree [phone] REASON FOR VISIT Patient presents today for a colon screening Encounters Encounter Location Date Provider Diagnosis [facility] [address] [address] 05/24/2024 Mayo Roche Plan Of Treatment No Information Progress Notes * EBONIE DAVISDOB:[birth year] (59 yo M)Acc No.[id number]:05/24/2024 Progress Notes Patient: EBONIE LAUREN Provider: Guera Roche MD :1965 A ge:59 Y S ex:Male Date:05/24/2024 Address:[address] [place], [place] [id number] Pcp:Salvatore Osorio MD Subjective: * Chief Complaints: [...] 0 05/24/2024 Generated for Tiarrai sumanth/Benedicto/eTransmitting on: 10/05/2024 09:52 AM EDT
--- NOTE | ~2024-10-05 | FL_ITS ---
EXAMINATION: XR UPPER GI SERIES WITH SMALL BOWEL CLINICAL INFORMATION: Lump in the epigastric region. Abdominal pain. Reflux disease. COMPARISON: None available. TECHNIQUE: Routine upper GI air contrast study with barium swallow was performed in upright position. Subsequently patient was placed supine and prone lying. FINDINGS: On oral administration of saltine crackers coated barium paste there is normal oral mastication and propagation of bolus from the oral cavity through the pharynx, esophagus into stomach without any evidence of obstruction, narrowing or stricture. On upright view and metal marker is placed and patient feels a clinical bump. No abnormality was seen by x-ray. On oral administration of thick barium and effervescent granules and upright view in different positions there is normal propagation bolus from the oral cavity through the pharynx, esophagus into stomach without any evidence of obstruction, narrowing or stricture. No extrinsic compression seen. On placing patient supine and prone lying the course, caliber and peristalsis of the stomach, duodenal bulb and sweep is normal. There is a trace gastroesophageal reflux without hiatal hernia. FLUOROSCOPY TIME: 3 minutes DOSE AREA PRODUCT: 3663 uGy-m2 (microgray-meter squared) FL/FL upper GI w air w Ba Swallow IMPRESSION: Trace laryngeal penetration without hiatal hernia. Rest of the upper GI exam is unremarkable. Clinically palpable lump by the patient does not correspond to anything on by x-ray. If patient has persistent pain and clinically important a CT of the upper abdomen can be performed. Electronically signed by: Segundo Rosas MD 10/05/2024 01:07 PM EDT
--- OUTSIDE RECORDS SUMMARY | 2024-10-05 09:53 | XMS_ITS ---
[facility] History of Medication Use Medication Directions Dispensed Refills Start Date End Date Stat sulfamethoxazole-trim ethoprim (BACTRIM DS,SEPTRA DS) 800-160 MG per tablet Take 1 tablet by mouth 2 (two) times a day. Start taking 1 day before catheter removal. 09/09/2022 09/13/2022 active lisinopril (PRINIVIL,ZeSTRIL) 10 MG tablet Take 1 tablet (10 mg total) by mouth every morning. 07/30/2022 active amLODIPine (NORVASC) 5 MG tablet Take 1 tablet (5 mg total) by mouth daily. 07/10/2022 active bicalutamide (CASODEX) 50 MG tablet 06/16/2022 active bicalutamide (CASODEX) 50 MG tablet Take 1 tablet (50 mg total) by mouth nightly. 06/16/2022 active butalbital-acetaminop hen-caffeine (FioriCET, ESGIC) 50-325-40 mg tablet Take 1 tablet by mouth every 4 (four) hours. 05/01/2022 active acetaminophen (TYLENOL) 500 MG tablet Take 2 tablets (1,000 mg total) by mouth 4 times daily (every 6 hours) as needed for mild pain. As Needed active atenolol (TENORMIN) 50 MG tablet 1 tablet active atenolol (TENORMIN) 50 MG tablet Take 1 tablet (50 mg total) by mouth every morning. active atorvastatin (LIPITOR) 40 MG tablet 1 tablet active clobetasol 0.05 % emollient cream Apply 1 Application topically 2 (two) times a day. active clobetasol 0.05 % emollient cream active hydrocortisone (WESTCORT) 0.2 % cream active lisinopril (PRINIVIL,ZeSTRIL) 5 MG tablet 1 tablet active OMEprazole (PriLOSEC) 20 MG capsule Take 1 capsule (20 mg total) by mouth 2 (two) times a day. active Allergies Allergen Reaction Severity Comment Documented Date Source Statu s OTHER ANAPHYLAXIS Lobster 09/03/2022 [facility] SHRIMP FLAVOR UNKNOWN/PATIENT AND FAMILY UNABLE TO DEFINE 09/10/2021 [facility] acti ve Problems Problem Status Onset Date Problem Type Date of Resoluti on Source GERD (gastroesophageal reflux disease) active 2022-09-08 ProblemAct [facility] History of prostate cancer active 2022-09-16 ProblemAct [facility] Encounters Encounter Type Encounter Reason Primary Diagnosis Location Date Ambulatory Personal history of malignant neoplasm of prostate Personal history of malignant neoplasm of prostate [facility] 09/16/2022 Inpatient Malignant neopla sm of prostate [facility] 09/08/2022 Ambulatory Elevated prostat e specific antigen (PSA) [facility] 08/28/2022 Ambulatory Malignant neopla sm of prostate [facility] 07/15/2022 Care Team Organization Name Specialty Phone Email Start Date End Da te [facility] PANTERA ORELLANA Primary Care 07/15/2022 [facility] PANTERA ORELLANA Primary Care 07/15/2022 [facility] NO PCP Primary Care
--- OUTSIDE RECORDS SUMMARY | 2024-10-05 09:53 | XMS_ITS | Patient Health Record ---
Author Organization [facility] dianna [facility] Address [address] [place] [address] Care Team Providers Care Roll Weigher Name Role Phone Kim Higuera Primary Care Provider Ky Kidd Unavailable [phone] Allergies Allergen (clinical drug ingredient) Drug/Non Drug Allergy documented on EMR Reaction Allergy Type Onset Date Status shrimp/shell fish (uncoded) Unknown Allergy Active Reason For Referral No Information Medications Medication SIG (Take, Route, Frequency, Duration) Notes Start Date End Date Status Cvcstnspue-FKKV-Frkmkvqi Active Elmiron Not-Taking Atorvastatin Calcium 40 MG [...] Problem Status W/U Status Risk Notes Problem Other hammer toe(s) (acquired), right foot (M20.41) Active confirmed Problem Acquired hammer toe of left foot (7495723016670 103) Other hammer toe(s) (acquired), left foot [...] X ray : Foot, right 3V 05/27/2023 34792, J0702- INJECT TENDON ORIGIN/INSER T 05/06/2017 13322, J0702- Neuroma/Injection 10/22/19 13 88706, J0702- Neuroma/Injection 01/07/20 13 Insurance Providers Payer Name Payer Address Payer Phone Subscriber Number Group Number Insured Name Patient Relationship to Insured Coverage Start Date Coverage End Date [employer] ([facility] [address] [place] [phone] [id number] Gautam Sorto Self - patient is [...]
--- OUTSIDE RECORDS SUMMARY | 2024-10-05 09:53 | XMS_ITS | Encounter Summary ---
Author Organization [facility] Address [address] [place] [address] Care Team Providers Care Yarder Engineer Name Role Phone Salvatore Osorio MD Primary Care Provider Mario Enriquez MD Unavailable [phone] Reason for Visit * Reason Comments Appointment Encounter Details Date Type Department Care Team (Late st Contact Info) Description 07/15/[address] [address] Brayan Cowart MD [address] [address] Appointment Social History Tobacco Use Types Packs/Day [...] on filedocumented in this encounter Care Teams Yarder Engineer Relationship Specialty Start Date End Date Salvatore Osorio MD [address] [place] [address] PCP - General Family Medicine 07/15/22 Mario Enriquez MD [address] [address] Urology 09/10/22 documented as of this encounter
--- OUTSIDE RECORDS SUMMARY | 2024-10-05 09:53 | XMS_ITS | Encounter Summary ---
Author Organization [facility] Address [address] [facility] [address] [place] [address] Phone Care Team Providers Care Terrazzo Tile Setter Name Role Phone Salvatore Osorio MD Primary Care Provider [phone] Encounter Details Date Type Department Care Team (Latest Contact Info) Description 01/22/2020 Transcribe Orders Virtual Department [address] [place] [address] Salvatore Osorio MD [address] [place] [address] [email or web address] Exposure to SARS-associated coronavirus (Primary Dx) Social History Tobacco Use Types Packs/Day Years Used Date Smoking Tobacco: Never Assessed Sex and Gender Information Value Date Recorded Sex Assigned at Not on file Legal Sex Male 3:39 PM EST Gender Identity Not on file Sexual Orientation Not on file documented as of this encounter Plan of Treatment Not on file documented as of this encounter Results * COVID-19 PCR Order (01/24/2020 7:54 AM EST) COVID Testing Status Specimen received in analyzing lab. [facility] Symptomatic? NO [facility] Other 01/24/2020 7:54 AM EST 01/24/2020 5:44 PM EST us Salvatore Osorio MD BODY FLUIDS AND STOOLS ORDERABLE S Final Result [facility] [address] [place] [address] [facility] [address] [place] [address] documented in this encounter Visit Diagnoses Diagnosis Exposure to SARS-associated coronavirus- Primary documented in this encounter Additional Health Concerns Infection Onset Date Last Indicated Resolved Time CoV-Exposed Comment:Recent close contact 01/22/2020 01/22/2020 02/05/2020 2:06 AM EST documented as of this encounter Care Teams Terrazzo Tile Setter Relationship Specialty Start Date End Date Salvatore Osorio MD [email or web address] PCP - General Family Medicine 01/23/20 documented as of this encounter Additional Source Comments The information contained in this document represents components of the legal health record. It is not the complete legal health record.[facility]
== END 2024-10-05 08:52 | disposition home or self-care (01) ==
LOC: HO.XRAY 08:51
PROVIDERS: PCP Family Medicine; Visit Provider Nurse Practitioner Family
DX: K21.9 Gastro-esophageal reflux disease without esophagitis (principal)
CPT/HCPCS: 74246

== ENCOUNTER → 2024-10-05 08:56 | Outpatient (BNV) | payer OTHER, SELFPAY | PROVIDERS: PCP Family Medicine; Visit Provider Radiology Diagnostic Radiology | DX: K21.9 Gastro-esophageal reflux disease without esophagitis (principal); R19.06 Epigastric swelling, mass or lump; R10.9 Unspecified abdominal pain | CPT/HCPCS: 74246; 74248 ==

== ENCOUNTER 2024-11-24 06:45 | Outpatient (REF) | payer OTHER, SELFPAY ==
--- OUTSIDE RECORDS SUMMARY | 2024-11-24 06:50 | XMS_ITS | Encounter Summary ---
Author Organization [facility] Address [address] [place] [address] Care Team Providers Care Ui Developer Name Role Phone Pcp, No Primary Care Provider Salvatore Castillo MD Primary Care Provider [phone] Mario Enriquez MD Unavailable [phone] Reason for Visit * Reason Comments Appointment Encounter Details Date Type Department Care Team (Late st Contact Info) Description 06/18/[address] [phone] Brayan Cowart MD [address] [address] Appointment Social History Tobacco Use Types Packs/Day [...] on filedocumented in this encounter Care Teams Ui Developer Relationship Specialty Start Date End Date Pcp, No [address] [place] [address] PCP - General 06/18/22 07/14/22 Salvatore Osorio MD [address] [place] [address] PCP - General Family Medicine 07/15/22 Mario Enriquez MD [address] [place] [address] [place] [address] Urology 09/10/22 documented as of this encounter
--- OUTSIDE RECORDS SUMMARY | 2024-11-24 06:50 | XMS_ITS | Clinical Summary ---
Author Organization [facility] Address [address] [place] [address] Care Team Providers Care Computer Operations Analyst Name Role Phone Salvatore Osorio MD Primary Care Provider [phone] Mario Enriquez MD Unavailable [phone] Allergies Active Allergy Reactions Criticality Noted Date [...] 58 09/16/2022 7:56 AM EDT Temperature 36.3 C (97.3 F) 09/09/2022 8:20 AM EDT Respiratory Rate 16 09/16/2022 7:56 AM EDT [...] Zoster (Shingles) Vaccine (1 of 2) 01/28/2014 RSV Vaccine 60 years and old er and Patients (1 - Risk 60-74 years 1-dose series) 2024 Influenza Vaccine 09/15/2024 COVID-19 Vaccine ( - 2023-2 5 season) 2024 Hepatitis B Vaccines Aged Out No long er eligible based on patient's age to complete this topic [facility] [place] [id number] Advance Directives * Full Code (Latest Code Status on File) Date Activated Date Inactivated Comments 09/08/2022 6:15 PM * Full Code Date Activated Date Inactivated Comments 09/08/2022 9:00 AM 09/08/2022 6:15 PM Care Teams Computer Operations Analyst Relationship Specialty Start Date End Date Salvatore Osorio MD [address] [place] [address] PCP - General Family Medicine 07/15/22 Mario Enriquez MD [address] [place] [address] [place] [address] Urology 09/10/22
--- OUTSIDE RECORDS SUMMARY | 2024-11-24 06:50 | XMS_ITS | Encounter Summary ---
Author Organization [facility] Address [address] [place] [address] Care Team Providers Care Assistant Spa Director Name Role Phone Pcp, No Primary Care Provider Salvatore Castillo MD Primary Care Provider [phone] Mario Enriquez MD Unavailable [phone] Reason for Visit * Reason Comments Appointment Encounter Details Date Type Department Care Team (Late st Contact Info) Description 06/19/[address] [phone] Brayan Cowart MD [address] [address] Appointment Social History Tobacco Use Types Packs/Day [...] on filedocumented in this encounter Care Teams Assistant Spa Director Relationship Specialty Start Date End Date Pcp, No [address] [place] [address] PCP - General 06/18/22 07/14/22 Salvatore Osorio MD [address] [place] [address] PCP - General Family Medicine 07/15/22 Mario Enriquez MD [address] [place] [address] [place] [address] Urology 09/10/22 documented as of this encounter
--- OUTSIDE RECORDS SUMMARY | 2024-11-24 06:50 | XMS_ITS | Encounter Summary ---
Author Organization [facility] Address [address] [place] [address] Care Team Providers Care Transfer Man Name Role Phone Salvatore Osorio MD Primary Care Provider [phone] Maroi Enriquez MD Unavailable [phone] Reason for Visit * Reason Comments Appointment Encounter Details Date Type Department Care Team (Late st Contact Info) Description 07/15/[address] [address] Brayan Cowart MD [address] [address] Appointment Social History Tobacco Use Types Packs/Day [...] filedocumented in this encounter Care Teams Transfer Man Relationship Specialty Start Date End Date Salvatore Osorio MD 70 [place] [address] PCP - General Family Medicine 07/15/22 Mario Enriquez MD [address] [address] Urology 09/10/22 documented as of this encounter
--- OUTSIDE RECORDS SUMMARY | 2024-11-24 06:50 | XMS_ITS | Encounter Summary ---
Author Organization [facility] Address [address] [place] [address] Care Team Providers Care Patient Liaison Name Role Phone Salvatore Osorio MD Primary Care Provider [phone] Mario Enriquez MD Unavailable [phone] Encounter Details Date Type Department Care Team (Late st Contact Info) Description 09/03/2022 Telephone [facility] Urologic Surgery [address] [phone] Braayn Cowart MD [address] [place] [address] Social History Tobacco Use Types Packs/Day [...] * Question Answer Date of Assessment Author AUDIT-C Total Score - Male 5 09/03/2022 12:33 PM EDT Nissa Kwok APRN Q1: How often do you have a [...] on filedocumented in this encounter Care Teams Patient Liaison Relationship Specialty Start Date End Date Salvatore Osorio MD [address] [place] [address] PCP - General Family Medicine 07/15/22 Mario Enriquez MD [address] [address] Urology 09/10/22 documented as of this encounter
== END 2024-11-24 06:46 | disposition home or self-care (01) ==
LOC: HO.HMGCLR 06:45
PROVIDERS: PCP Family Medicine; Visit Provider Family Medicine
DX: R73.01 Impaired fasting glucose (principal)
CPT/HCPCS: 36415; 83036

== ENCOUNTER 2024-12-01 06:48 | Outpatient (REF) | payer OTHER, SELFPAY ==
--- OUTSIDE RECORDS SUMMARY | 2024-05-24 10:00 | XMS_ITS ---
Author Organization [facility] Address [address] [place] [address] Care Team Providers Care Bull Gang Worker Name Role Phone Salvatore Osorio MD Primary Care Provider UnavailMayo Dupree [phone] REASON FOR VISIT Patient presents today for a colon screening Encounters Encounter Location Date Provider Diagnosis [facility] [address] [address] 05/24/2024 Mayo Roche Plan Of Treatment No Information Progress Notes * EBONIE DAVISDOB:[birth year] (59 yo M)Acc No.[id number]:05/24/2024 Progress Notes Patient: EBONIE LAUREN Provider: Guera Roche MD :1965 A ge:59 Y S ex:Male Date:05/24/2024 Address:[address] [place], [place] [id number] Pcp:Salvatore Osorio MD Subjective: * Chief Complaints: [...] Roche MD Date: 0 05/24/2024 Generated for Tiarrai sumanth/Benedicto/eTransmitting on: 1 06:51 AM EDT
--- OUTSIDE RECORDS SUMMARY | 2024-12-01 06:51 | XMS_ITS | Encounter Summary ---
Author Organization [facility] Address [address] [facility] [address] [place] [address] Phone Care Team Providers Care Accounts Payable Bookkeeper Name Role Phone Salvatore Osorio MD Primary Care Provider [phone] Encounter Details Date Type Department Care Team (Latest Contact Info) Description 01/22/2020 Transcribe Orders Virtual Department [address] [place] [address] Salvatore Osorio MD [address] [place] [address] [email or web address] Exposure to SARS-associated coronavirus (Primary Dx) Social [...] Testing Status Specimen received in analyzing lab. [facility] Symptomatic? NO [facility] Other 01/24/2020 7:54 AM EST 01/24/2020 5:44 PM EST us Salvatore Osorio MD BODY FLUIDS AND STOOLS ORDERABLE S Final Result [facility] [address] [place] [address] [facility] [address] [place] [address] documented in this encounter Visit Diagnoses Diagnosis Exposure to SARS-associated coronavirus- Primary documented in this encounter Additional Health Concerns Infection Onset Date Last Indicated Resolved Time CoV-Exposed Comment:Recent close contact 01/22/2020 01/22/2020 02/05/2020 2:06 AM EST documented as of this encounter Care Teams Accounts Payable Bookkeeper Relationship Specialty Start Date End Date Salvatore Osorio MD [email or web address] PCP - General Family Medicine 01/23/20 documented as of this encounter Additional Source Comments The information contained in this document represents components of the legal health record. It is not the complete legal health record.[facility]
--- OUTSIDE RECORDS SUMMARY | 2024-12-01 06:51 | XMS_ITS | Patient Health Record ---
Author Organization [facility] dian[facility] Address [address] [place] [address] Care Team Providers Care Wax Ball Molder Name Role Phone Kim Higuera Primary Care Provider Ky Roca Unavailable [phone] Allergies Allergen (clinical drug ingredient) Drug/Non Drug Allergy documented on EMR Reaction Allergy Type Onset Date Status shrimp/shell fish (uncoded) Unknown Allergy Active Reason For Referral No Information Medications Medication SIG (Take, Route, Frequency, Duration) Notes Start Date End Date Status Qfeuanpxod-DYSY-Rftydwwq Active Elmiron Not-Taking Atorvastatin Calcium 40 MG [...] Problem Acquired hammer toe of right foot (1636977190565 105) Other hammer toe(s) (acquired), right foot (M20.41) Active confirmed Problem Acquired hammer toe of left foot (6828230494151 103) Other hammer toe(s) (acquired), left foot [...] X ray : Foot, right 3V 05/27/2023 73373, J0702- INJECT TENDON ORIGIN/INSER T 05/06/2017 13788, J0702- Neuroma/Injection 10/22/19 13 24360, J0702- Neuroma/Injection 01/07/20 13 Insurance Providers Payer Name Payer Address Payer Phone Subscriber Number Group Number Insured Name Patient Relationship to Insured Coverage Start Date Coverage End Date [facility] ([facility] [address] [place] [address] [phone] [id number] Gautam Sorto Self - patient is [...]
--- OUTSIDE RECORDS SUMMARY | 2024-12-01 06:51 | XMS_ITS | Clinical Summary ---
Author Organization [facility] Address [address] [place] [address] Care Team Providers Care Felt Finishing Supervisor Name Role Phone Salvatore Osorio MD Primary Care Provider Mario Enriquez MD Unavailable [phone] Allergies Active Allergy Reactions Criticality Noted Date [...] place to sleep or slept in a correction (including now)? No 09/09/2022 Sex and Gender [...] Vaccine (1 of 2) 01/28/2014 RSV Vaccine 50 years and old er and Patients (1 - Risk 60-74 years 1-dose series) 2024 Influenza Vaccine 09/15/2024 COVID-19 Vaccine ( - 2023-2 5 season) 2024 Hepatitis B Vaccines Aged Out No long er eligible based on patient's age to complete this topic [facility] [place] [id number] Advance Directives * Full Code (Latest Code Status on File) Date Activated Date Inactivated Comments 09/08/2022 6:15 PM * Full Code Date Activated Date Inactivated Comments 09/08/2022 9:00 AM 09/08/2022 6:15 PM Care Teams Felt Finishing Supervisor Relationship Specialty Start Date End Date Salvatore Osorio MD [address] [place] [address] PCP - General Family Medicine 07/15/22 Mario Enriquez MD [address] [place] [address] [place] [address] Urology 09/10/22
--- OUTSIDE RECORDS SUMMARY | 2024-12-01 06:51 | XMS_ITS | Encounter Summary ---
Author Organization [facility] Address [address] [place] [address] Care Team Providers Care Manager Market Research Name Role Phone Salvatore Osorio MD Primary Care Provider Mario Enriquez MD Unavailable [phone] Reason for Visit * Reason Comments Appointment Encounter Details Date Type Department Care Team (Late st Contact Info) Description 07/15/[address] [phone] Brayan Cowart MD [address] [address] Appointment Social History Tobacco Use Types Packs/Day [...] on filedocumented in this encounter Care Teams Manager Market Research Relationship Specialty Start Date End Date Salvatore Osorio MD 70 [place] [address] PCP - General Family Medicine 07/15/22 Mario Enriquez MD [address] [address] Urology 09/10/22 documented as of this encounter
--- OUTSIDE RECORDS SUMMARY | 2024-12-01 06:51 | XMS_ITS | Patient Health Record ---
Author Organization [facility] Address [address] [place] [address] Care Team Providers Care Screw Machine Adjuster Automatic Name Role Phone Salvatore Osorio MD Primary Care Provider UnavailMayo Dupree [phone] Allergies Allergen (clinical drug ingredient) Drug/Non Drug [...] MG 1 capsule Orally Onc e a day; Duration: 30 day(s) Active Lisinopril 5 MG 1 tablet Orally Once a day; Duration: 30 day(s) Active Clobetasol Prop & Cleanser 0.05 % as directed Externally 09/10/2021 Activ e Atorvastatin Calcium 40 MG 1 tablet Oral ly Once a day; Duration: 30 day(s) Active Atenolol 50 MG 1 tablet Orally Once a day; Duration: 30 day(s) Active Hydrocortisone 2 MG as [...] W/U Status Risk Notes Problem Esophageal reflux (639212763) Esophageal reflux (K21.9) Active confirmed Problem Gastro-esophagea l reflux disease without esophagitis (863786525) Gastro-esophage al reflux disease without esophagitis (K21.9) Active confirmed Encounters Encounter Location Date Provider Diagnosis [facility] [address] [place] [phone] 05/08/2024 Mayo Roche [facility] [address] [place] [phone] 05/22/2024 Mayo Roche Plan Of Treatment Future Test Test Name Order Date UPPER GI ENDOSCOPY 09/10/2021 Insurance Providers Payer Name Payer Address Payer Phone Subscriber Number Group Number Insured Name Patient Relationship to Insured Coverage Start Date Coverage End Date [facility] Insurance ([place]) [address] [place] [id number] [phone] [id number] EBONIE BAUTISTA Self - patient is the insured Medical (General) History Medical History History ICD Code HTN Neck pain-s/p injections Neg. colonoscopy at age 49 [address] Gerardo acosta--told to repeat at age 59 Hyperlipidemia GERD BPH Denies MA,DM,CVA,Lung disease,renal dise ase Cytoscopies-interstitial cystitis Surgical History Surgery Date(Month/Year) Left and right rotator cuff Nose-deviated septum Left and right knee
--- OUTSIDE RECORDS SUMMARY | 2024-12-01 06:51 | XMS_ITS | Encounter Summary ---
Author Organization [facility] Address [address] [place] [address] Care Team Providers Care Plant Controller Name Role Phone Pcp, No Primary Care Provider Salvatore Castillo MD Primary Care Provider [phone] Mario Enriquez MD Unavailable [phone] Reason for Visit * Reason Comments Appointment Encounter Details Date Type Department Care Team (Late st Contact Info) Description 06/18/[address] [phone] Brayan Cowart MD [address] [address] Appointment Social History Tobacco Use Types Packs/Day [...] on filedocumented in this encounter Care Teams Plant Controller Relationship Specialty Start Date End Date Pcp, No [address] [place] [address] PCP - General 06/18/22 07/14/22 Salvatore Osorio MD [address] [place] [address] PCP - General Family Medicine 07/15/22 Mario Enriquez MD [address] [place] [address] [place] [address] Urology 09/10/22 documented as of this encounter
--- OUTSIDE RECORDS SUMMARY | 2024-12-01 06:51 | XMS_ITS | Encounter Summary ---
Author Organization [facility] Address [address] [place] [address] Care Team Providers Care Tafe Lecturer Name Role Phone Salvatore Osorio MD Primary Care Provider Mario Enriquez MD Unavailable [phone] Encounter Details Date Type Department Care Team (Late st Contact Info) Description 09/03/2022 Telephone [facility] Urologic Surgery [address] [phone] Brayan Cowart MD [address] [place] [address] Social History Tobacco Use Types Packs/Day [...] as of this encounter Functional Status * AUDIT-C Score Answer Date of Assessment Author 5 [...] on filedocumented in this encounter Care Teams Tafe Lecturer Relationship Specialty Start Date End Date Salvatore Osorio MD [address] [place] [address] PCP - General Family Medicine 07/15/22 Mario Enriquez MD [address] [address] Urology 09/10/22 documented as of this encounter
--- OUTSIDE RECORDS SUMMARY | 2024-12-01 06:51 | XMS_ITS | Encounter Summary ---
Author Organization [facility] Address [address] [place] [address] Care Team Providers Care Surface Mount Technology Operator Name Role Phone Pcp, No Primary Care Provider Salvatore Castillo MD Primary Care Provider [phone] Mario Enriquez MD Unavailable [phone] Reason for Visit * Reason Comments Appointment Encounter Details Date Type Department Care Team (Late st Contact Info) Description 06/19/[address] [phone] Brayan Cowart MD [address] [address] Appointment Social History Tobacco Use Types Packs/Day [...] on filedocumented in this encounter Care Teams Surface Mount Technology Operator Relationship Specialty Start Date End Date Pcp, No [address] [place] [address] PCP - General 06/18/22 07/14/22 Salvatore Osorio MD [address] [place] [address] PCP - General Family Medicine 07/15/22 Mario Enriquez MD [address] [place] [address] [place] [address] Urology 09/10/22 documented as of this encounter
--- OUTSIDE RECORDS SUMMARY | 2024-12-01 06:51 | XMS_ITS | Clinical Summary ---
Author Organization [facility] Address [address] [place] [phone] Phone Care Team Providers Care Molded Frames Assembler Name Role Phone Salvatore Osorio MD Primary Care Provider [phone] Social History Tobacco Use Types Packs/Day Years Used Date Smoking Tobacco: Never Assessed Education Answer Date Recorded Are you interested in more education? Not on elvira e 06/12/2022 Are you concerned about learning? Not on file 06/12/2022 No 06/12/2022 No 06/12/2022 Digital Access Answer Date Recorded No 07/14/2022 No 07/14/2022 Reliable internet access at home? Not on file 07/14/2022 Device with a working camera? Not on file Sex and Gender Information Value Date Recorded Sex Assigned at Not on file Legal Sex Male 3:39 PM EST Gender Identity Not on file Sexual Orientation Not on file Plan of Treatment Not on file Medical Devices Not on file Insurance [facility] [place] [address] [place] [address] [place] [address] [place] [address] [place] [address] [address] HMO O O O [facility] HMO Care Teams Molded Frames Assembler Relationship Specialty Start Date End Date Salvatore Osorio MD [email or web address] PCP - General Family Medicine 01/23/20 Additional Source Comments The information contained in this document represents components of the legal health record. It is not the complete legal health record.[facility]
[2024-12-01 14:03] LABS: Cholesterol 186 mg/dL (<200); HDL Cholesterol 50 mg/dL (>40); Triglycerides 144 mg/dL (<150)
== END 2024-12-01 06:49 | disposition home or self-care (01) ==
LOC: HO.HMGCLDS 06:48
PROVIDERS: PCP Family Medicine; Visit Provider Family Medicine
DX: I10 Essential (primary) hypertension (principal)
CPT/HCPCS: 36415; 80061

== ENCOUNTER 2024-12-22 07:16 | Outpatient (REF) | payer OTHER, SELFPAY ==
--- OUTSIDE RECORDS SUMMARY | 2024-05-24 09:00 | XMS_ITS ---
Author Organization [facility] Address [address] [place] [address] Care Team Providers Care Service And Repair Supervisor Name Role Phone Salvatore Osorio MD Primary Care Provider Unavailab Mayo Smith [phone] REASON FOR VISIT Patient presents today for a colon screening Encounters Encounter Location Date Provider Diagnosis [facility] [address] [address] 05/24/2024 Mayo Roche Plan Of Treatment No Information Progress Notes * EBONIE DAVISDOB:[birth year] (59 yo M)Acc No.[id number]:05/24/2024 Progress Notes Patient: EBONIE LAUREN Provider: Guera Roche MD :1965 A ge:59 Y S ex:Male Date:05/24/2024 Address:[address] [place], [place] [id number] Pcp:Salvatore Osorio MD Subjective: * Chief Complaints: * 1 . Patient presents today for a colon screening. * Medical History: Objective: * Vitals: Assessment: Plan: * Treatment: * * The named appointment provid er may or may not be the originator of this progress note, and it is not deemed complete until electronically signed by the appointment provider. Sign off status: Pending * Provider: Guera Roche MD Date: 0 05/24/2024 Generated for [place] julio/Benedicto/eTransmitting on: 02/22/2024 07:19 AM EST
--- OUTSIDE RECORDS SUMMARY | 2024-12-22 07:19 | XMS_ITS | Clinical Summary ---
Author Organization [facility] Address [address] [place] [address] Care Team Providers Care Lunchroom Worker Name Role Phone Salvatore Osorio MD Primary Care Provider Mario Enriquez MD Unavailable [phone] Allergies Active Allergy Reactions Criticality Noted Date [...] place to sleep or slept in a skilled nursing (including now)? No 09/09/2022 Sex and Gender [...] 50+ (1 of 1 - PCV) 01/28/2014 RSV Vaccine 50 years and old er and Patients (1 - Risk 50-74 years 1-dose series) 01/28/2014 Zoster (Shingles) Vaccine (1 of 2) 01/28/2014 Influenza Vaccine 09/15/2024 COVID-19 Vaccine ( - 2023-2 5 season) 2024 Hepatitis B Vaccines Aged Out No long er eligible based on patient's age to complete this topic [facility] [place] [id number] Advance Directives * Full Code (Latest Code Status on File) Date Activated Date Inactivated Comments 09/08/2022 6:15 PM * Full Code Date Activated Date Inactivated Comments 09/08/2022 9:00 AM 09/08/2022 6:15 PM Care Teams Lunchroom Worker Relationship Specialty Start Date End Date Salvatore Osorio MD [address] [place] [address] PCP - General Family Medicine 07/15/22 Mario Enriquez MD [address] [place] [address] [place] [address] Urology 09/10/22
--- OUTSIDE RECORDS SUMMARY | 2024-12-22 07:19 | XMS_ITS | Encounter Summary ---
Author Organization [facility] Address [address] [facility] [address] [place] [address] Phone Care Team Providers Care Monitoring Manager Name Role Phone Salvatore Osorio MD Primary Care Provider [phone] Encounter Details Date Type Department Care Team (Latest Contact Info) Description 01/22/2020 Transcribe Orders Virtual Department [address] [place] [address] Salvatore Osorio MD [address] [place] [address] [email or web address] Exposure to SARS-associated coronavirus (Primary Dx) Social [...] Testing Status Specimen received in analyzing lab. [facility] Symptomatic? NO [facility] Other 01/24/2020 7:54 AM EST 01/24/2020 5:44 PM EST us Salvatore Osorio MD LAB GENERAL ORDERABLES Final Res ult [facility] [address] [place] [address] [facility] [address] [place] [address] documented in this encounter Visit Diagnoses Diagnosis Exposure to SARS-associated coronavirus- Primary documented in this encounter Additional Health Concerns Infection Onset Date Last Indicated Resolved Time CoV-Exposed Comment:Recent close contact 01/22/2020 01/22/2020 02/05/2020 2:06 AM EST documented as of this encounter Care Teams Monitoring Manager Relationship Specialty Start Date End Date Salvatore Osorio MD [email or web address] PCP - General Family Medicine 01/23/20 documented as of this encounter Additional Source Comments The information contained in this document represents components of the legal health record. It is not the complete legal health record.[facility]
--- OUTSIDE RECORDS SUMMARY | 2024-12-22 07:19 | XMS_ITS | Patient Health Record ---
Author Organization [facility] dianna GilEstrada Address [address] [place] [address] Care Team Providers Care Ice Skater Name Role Phone Kim Higuera Primary Care Provider Ky Roca Unavailable [phone] Allergies Allergen (clinical drug ingredient) Drug/Non Drug Allergy documented on EMR Reaction Allergy Type Onset Date Status shrimp/shell fish (uncoded) Unknown Allergy Active Reason For Referral No Information Medications Medication SIG (Take, Route, Frequency, Duration) Notes Start Date End Date Status Dvnthcyuqq-MMCS-Xgrshbez Active Elmiron Not-Taking Atorvastatin Calcium 40 MG [...] hrs Not-Taking Lipitor 40 MG Orally Not-Ta atvo Fioricet 50-300-40 MG Orally Not-Taking Atenolol 50 [...] Problem Acquired hammer toe of right foot (7709188488796 105) Other hammer toe(s) (acquired), right foot (M20.41) Active confirmed Problem Acquired hammer toe of left foot (1529546645544 103) Other hammer toe(s) (acquired), left foot [...] X ray : Foot, right 3V 05/27/2023 91443, J0702- INJECT TENDON ORIGIN/INSER T 05/06/2017 86189, J0702- Neuroma/Injection 10/22/19 13 73422, J0702- Neuroma/Injection 01/07/20 13 Insurance Providers Payer Name Payer Address Payer Phone Subscriber Number Group Number Insured Name Patient Relationship to Insured Coverage Start Date Coverage End Date [facility] ([facility]) [address] [place] [address] [id number] Gautam Sorto Self - patient is [...]
--- OUTSIDE RECORDS SUMMARY | 2024-12-22 07:19 | XMS_ITS | Clinical Summary ---
Author Organization [facility] Address [address] [id number] Phone Care Team Providers Care Mother'S Helper Name Role Phone Salvatore Osorio MD Primary Care Provider [phone] Social History Tobacco Use Types Packs/Day Years [...] file Medical Devices Not on file Insurance [facility] [place] [address] [place] [address] [address] [place] [address] [place] [address] [place] [address] HMO O O O [facility] HMO Care Teams Mother'S Helper Relationship Specialty Start Date End Date Salvatore Osorio MD [email or web address] PCP - General Family Medicine 01/23/20 Additional Source Comments The information contained in this document represents components of the legal health record. It is not the complete legal health record.[facility]
--- OUTSIDE RECORDS SUMMARY | 2024-12-22 07:19 | XMS_ITS | Patient Health Record ---
Author Organization [facility] Address [address] [place] [address] Care Team Providers Care Biofuels Research Scientist Name Role Phone Salvatore Osorio MD Primary Care Provider UnavailMayo Dupree [phone] Allergies Allergen (clinical drug ingredient) Drug/Non Drug [...] W/U Status Risk Notes Problem Esophageal reflux (909063406) Esophageal reflux (K21.9) Active confirmed Problem Gastro-esophagea l reflux disease without esophagitis (136004729) Gastro-esophage al reflux disease without esophagitis (K21.9) Active confirmed Encounters Encounter Location Date Provider Diagnosis [facility] [address] [place] [phone] 05/08/2024 Mayo Roche [facility] [address] [place] [address] 05/22/2024 Mayo Roche Plan Of Treatment Future Test Test Name Order Date UPPER GI ENDOSCOPY 09/10/2021 Insurance Providers Payer Name Payer Address Payer Phone Subscriber Number Group Number Insured Name Patient Relationship to Insured Coverage Start Date Coverage End Date [facility] Insurance ([employer]) [address] [place] [address] [id number] EBONIE BAUTISTA Self - patient is the insured Medical (General) History Medical History History ICD Code HTN Neck pain-s/p injections Neg. colonoscopy at age 49 [address] Gerardo acosta--told to repeat at age 59 Hyperlipidemia GERD BPH Denies DE,DM,CVA,Lung disease,renal dise ase Cytoscopies-interstitial cystitis Surgical History Surgery Date(Month/Year) Left and right rotator cuff Nose-deviated septum Left and right knee
[2024-12-22 10:57] LABS: Prostate Specific Antigen < 0.10 ng/mL (<0.05-4.0)
== END 2024-12-22 07:17 | disposition home or self-care (01) ==
LOC: HO.HMGCLDS 07:16
PROVIDERS: PCP Family Medicine; Visit Provider Urology
DX: C61 Malignant neoplasm of prostate (principal); Z12.5 Encounter for screening for malignant neoplasm of prostate
CPT/HCPCS: 36415; 84153; 84403

== ENCOUNTER 2024-12-27 08:11 | Day surgery (SDC) | payer OTHER, SELFPAY ==
[2024-12-25 14:08] VITALS: BMI 29.5
[2024-12-27 08:44] VITALS: BMI 29.9
[2024-12-27 08:52] VITALS: BP 134/58; PULSE 60; RESP 15; TEMP 36.6; O2SAT 96
[2024-12-27] MEDS: Lactated Ringers 1,000 ML 100 ML IVCONT (09:02)
--- NOTE | 2024-12-27 09:19 | HO.ANESPROP2 ---
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) Osteoarthritis of carpometacarpal joint of left thumb (Acute) Cubital tunnel syndrome on left (Acute) Cubital tunnel syndrome on right (Acute) Myofascial pain (Acute) Chronic neck pain (Acute) Cervical radiculitis (Acute) Osteoarthritis of left hand (Acute) Arthritis of left hand (Acute) Osteoarthritis of right ankle (Acute) Left carpal tunnel syndrome (Acute) Right carpal tunnel syndrome (Acute) Numbness and tingling of right upper extremity (Acute) Numbness and tingling of left upper extremity (Acute) Prostate cancer (Acute) Nocturia (Acute) Acute bronchitis (Acute) Impingement syndrome of right shoulder (Acute) Synovial cyst of popliteal space [Knight], right knee (Acute) Spondylosis of cervical spine (Acute) Syrinx of spinal cord (Acute) Interstitial cystitis (Acute) BPH loc w urin obs/LUTS (Chronic) Past Medical History Medical History Colon cancer screening Elevated PSA Synovial cyst of popliteal space [Knight], right knee Spondylosis of cervical spine Syrinx of spinal cord BPH loc w urin obs/LUTS Interstitial cystitis BPH (benign prostatic hyperplasia) GERD (gastroesophageal reflux disease) Elevated cholesterol HTN (hypertension) Family History Family history of problems with anesthesia: No Surgical History Surgical History History of esophagogastroduodenoscopy (EGD) Hx of prostatectomy Hx of knee surgery History of nasal surgery H/O rotator cuff surgery Hx of cystoscopy Hx of colonoscopy History of Problems with Anesthesia: No Social History Social History Comment: counts correct Patient Tobacco Use Status: Former Tobacco user Use of substances other than those prescribed or required for medical reasons: No Are you DNR?: No Advance Directives: No Advance Directives Information Provided: Yes Current occupational status: employed 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 Allergies Allergy/AdvReac Type Severity Reaction Status Date / Time CRUSTACEANS Allergy Intermediate SWELLING/DI Uncoded 12/27/24 08:42 FF.BREATHIN G shrimp/crab/lobster Allergy Unknown facial Uncoded 12/27/24 08:42 swelling Home Medications ?Medication ?Instructions ?Recorded ?Confirmed ?Last Taken ?Type amlodipine 5 mg tablet 5 mg PO DAILY 11/05/21 12/25/24 12/27/24 05:00 History atenolol 50 mg tablet 50 mg PO DAILY 11/05/21 12/25/24 12/27/24 05:00 History atorvastatin 40 mg tablet 40 mg PO DAILY 11/05/21 12/25/24 Unknown History ofrwlbdrgt-dgwbbpickwixe-eyoruwtg 1 tab PO Q4H PRN Pain 11/05/21 12/25/24 12/27/24 05:00 History 50 mg-325 mg-40 mg tablet cyclobenzaprine 10 mg tablet 10 mg PO BEDTIME 11/05/21 12/25/24 Unknown History epinephrine 0.3 mg/0.3 mL IM allergies 11/05/21 03/20/24 Unknown History injection, auto-injector hydrocortisone valerate 0.2 % topical 11/05/21 03/20/24 Unknown History topical ointment lisinopril 10 mg tablet 10 mg PO DAILY 10/20/22 12/25/24 Unknown History tizanidine 2 mg tablet 2 mg PO BID 06/30/23 12/25/24 Unknown History Assessment and Plan Final Anesthetic Review Family History of Problems with Anesthesia: No History of Problems with Anesthesia: No Documented by User: Roula Mckinnon DO 12/27/24 09:21 [facility] Past Medical History Medical History Colon cancer screening Elevated PSA Synovial cyst of popliteal space [Knight], right knee Spondylosis of cervical spine Syrinx of spinal cord BPH loc w urin obs/LUTS Interstitial cystitis BPH (benign prostatic hyperplasia) GERD (gastroesophageal reflux disease) Elevated cholesterol HTN (hypertension) Family History Family history of problems with anesthesia: No Surgical History Surgical History History of esophagogastroduodenoscopy (EGD) Hx of prostatectomy Hx of knee surgery History of nasal surgery H/O rotator cuff surgery Hx of cystoscopy Hx of colonoscopy History of Problems with Anesthesia: No Social History Social History Comment: counts correct Patient Tobacco Use Status: Former Tobacco user Use of substances other than those prescribed or required for medical reasons: No Are you DNR?: No Advance Directives: No Advance Directives Information Provided: Yes Current occupational status: employed 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 Allergies Allergy/AdvReac Type Severity Reaction Status Date / Time CRUSTACEANS Allergy Intermediate SWELLING/DI Uncoded 12/27/24 08:42 FF.BREATHIN G shrimp/crab/lobster Allergy Unknown facial Uncoded 12/27/24 08:42 swelling Home Medications ?Medication ?Instructions ?Recorded ?Confirmed ?Last Taken ?Type amlodipine 5 mg tablet 5 mg PO DAILY 11/05/21 12/25/24 12/27/24 05:00 History atenolol 50 mg tablet 50 mg PO DAILY 11/05/21 12/25/24 12/27/24 05:00 History atorvastatin 40 mg tablet 40 mg PO DAILY 11/05/21 12/25/24 Unknown History wykhqluaep-ddpwtsoewjxid-hlxueyvm 1 tab PO Q4H PRN Pain 11/05/21 12/25/24 12/27/24 05:00 History 50 mg-325 mg-40 mg tablet cyclobenzaprine 10 mg tablet 10 mg PO BEDTIME 11/05/21 12/25/24 Unknown History epinephrine 0.3 mg/0.3 mL IM allergies 11/05/21 03/20/24 Unknown History injection, auto-injector hydrocortisone valerate 0.2 % topical 11/05/21 03/20/24 Unknown History topical ointment lisinopril 10 mg tablet 10 mg PO DAILY 10/20/22 12/25/24 Unknown History tizanidine 2 mg tablet 2 mg PO BID 06/30/23 12/25/24 Unknown History Exam Exam Date and Time: 12/27/24 0919 Height,Weight and Vital Signs: Height 5 ft 9 in Weight 92 kg Vital Signs Temperature 97.8 F 12/27/24 08:52 Pulse Rate 60 12/27/24 08:52 Respiratory Rate 15 12/27/24 08:52 Blood Pressure 134/58 L 12/27/24 08:52 Pulse Oximetry 96 12/27/24 08:52 Oxygen Delivery Method Room Air 12/27/24 08:52 Temperature 97.8 F 12/27/24 08:52 Pulse Rate 60 12/27/24 08:52 Respiratory Rate 15 12/27/24 08:52 Blood Pressure 134/58 L 12/27/24 08:52 Pulse Oximetry 96 12/27/24 08:52 Oxygen Delivery Method Room Air 12/27/24 08:52 Airway Mallampati Class: II TM Dist: >3cm Neck ROM: Full Loose/Missing/Broken Teeth: No (patient denies any loose or broken teeth) Heart: S1S2 Lungs: CTAB Assessment and Plan Assessment Anesthesia Assessment: Anesthesia Plan Discussed and Chart Reviewed Final Anesthetic Review Family History of Problems with Anesthesia: No History of Problems with Anesthesia: No NPO: Yes ASA Class: II Final Preanesthetic Review: No Changes in Pt Med Stat, Meds/Allgs Chart Reviewed, Consent Obtained/Reviewed and Anes Risks/Benef Reviewed Patient Risk: Low Procedure Risk: Low Anesthetic Plan Anesthetic Plan: MAC: and Agree w/ Assess. and Plan Disposition: Standard PACU
--- NOTE | 2024-12-27 09:25 | MHC.SHP ---
Pre-Procedural Eval Section A - 24 Hr Update-Section A only Date of Service: 12/27/24 Section B - Complete if H&P > 30 days Chief Complaint: Epigastric pain Relevant Family History (Specify if Yes): No Relevant Social History: None Present Medications: see Short Stay Collaborative assessment Medical History: Significant History (Colon cancer screening Elevated PSA Synovial cyst of popliteal space [Knight], right knee Spondylosis of cervical spine Syrinx of spinal cord BPH loc w urin obs/LUTS Interstitial cystitis BPH (benign prostatic hyperplasia) GERD (gastroesophageal reflux disease) Elevated cholesterol HTN (hypertension)) History of Previous Operations: Relevant previous surgery/procedure and date(s) (History of esophagogastroduodenoscopy (EGD) Hx of prostatectomy Hx of knee surgery History of nasal surgery H/O rotator cuff surgery Hx of cystoscopy Hx of colonoscopy) Allergies: Allergies Allergy/AdvReac Type Severity Reaction Status Date / Time CRUSTACEANS Allergy Intermediate SWELLING/DI Uncoded 12/27/24 08:42 FF.BREATHIN G shrimp/crab/lobster Allergy Unknown facial Uncoded 12/27/24 08:42 swelling Review of Systems Sugical H&P ROS: Negative: Constitution, Cardiovascular, Respiratory, Neurological, Psychiatric, Hem-Onc, Allergic/Immunologic, Gastrointestinal, Genitourinary, Musculoskeletal, Integumentary, Endocrine and Eyes/Ears/Nose/Throat Exam Surgical H&P Exam: Normal: HEENT, Normal: Heart, Normal: Lungs, Normal: Extremities, Normal: Abdomen, Normal: Skin and Normal: Neurological Plan Diagnosis/Plan: Unchanged I have reviewed the history and physical and performed a pertinent physical examination on my patient. No changes have occurred unless specified. Time Spent With Patient Time: Total time managing care of this patient today ____ minutes.
--- NOTE | 2024-12-27 10:31 | W.PM.OPN ---
Operative Note Operative Note Date of Service: 12/27/24 Narrative: Procedure Description: EGD Indication: GERD, epigastric pain, gas sx Anesthesia: MAC FLEXIBLE TRANSORAL UPPER GASTROINTESTINAL ENDOSCOPY UPPER ENDOSCOPY Consent: Indications for the procedure and potential complications of bleeding, perforation, reaction to medications and missed diagnosis were discussed with the patient and informed consent was obtained. Instrument: Olympus GIF H 190 J mid size upper endoscope Monitoring: Vital signs and clinical assessment, continuous EKG monitoring, Pulse oximetry, Carbon Dioxide monitoring and blood pressure monitoring were done throughout the procedure. Procedure: The patient was placed in the left lateral decubitis position and pre-procedure medications were administered and a bite block was placed. The endoscope was inserted into the mouth and advanced under direct vision to the third part of duodenum. A careful inspection was made as the upper endoscope was withdrawn including a retroflexed examination of the proximal stomach; Findings and interventions are described below. Findings: Larynx:normal Esophagus: GE junction at 37 cm, diaphragm hiatus at 37 cm, irregular z line, bx taken from distal esophagus and GEJ Stomach: mild patchy erythema at antrum . Biopsies were obtained. Grade 2 flap valve on retroflexed examination of the cardia. Duodenum: Normal bulb and descending duodenum, bx taken incl for disaccharidases Intervention: Biopsies as noted above, Impression/Findings: gastritis PLAN: await bx, cont with PPI as helping GERD precautions
[2024-12-27 10:37] VITALS: BP 117/68; PULSE 68; RESP 16; TEMP 36.1; O2SAT 93
[2024-12-27 10:52] VITALS: BP 121/67; PULSE 66; RESP 16; O2SAT 95
[2024-12-27 11:07] VITALS: BP 128/77; PULSE 64; RESP 19; TEMP 36.7; O2SAT 97
[2025-01-02 02:48] LABS: Lactase 4.1 (15.0-45.5); Maltase 154.8 (100.0-224.4); Palatinase 12.0 (5.0-26.3); Sucrase 46.3 (25.0-69.9)
== END 2024-12-27 11:43 | disposition home or self-care (01) ==
PROVIDERS: PCP Family Medicine; Visit Provider Internal Medicine Gastroenterology
PROC: 0DJ08ZZ Inspection of Upper Intestinal Tract, Via Natural or Artificial Opening Endoscopic (ICD-10-PCS; CPT 43235; principal; 2024-12-27 10:20)
DX: R10.13 Epigastric pain (principal); K21.9 Gastro-esophageal reflux disease without esophagitis; R14.0 Abdominal distension (gaseous); K29.70 Gastritis, unspecified, without bleeding
CPT/HCPCS: 43239; 82657; 88305; 88313; 88342; J2003; J2704

== ENCOUNTER → 2024-12-27 08:11 | Outpatient (BNV) | payer OTHER, SELFPAY | PROVIDERS: PCP Family Medicine; Visit Provider Internal Medicine Gastroenterology | DX: R10.13 Epigastric pain (principal); K29.70 Gastritis, unspecified, without bleeding | CPT/HCPCS: 43239 ==

== ENCOUNTER 2025-01-09 13:15 | Outpatient (AMB) | payer OTHER, SELFPAY ==
--- NOTE | 2025-01-09 13:15 | A.OFFVIS_ITS ---
Intake Visit Reasons: 6M/PSA Intake Note: Patient presents for 6 mo follow up telehealth Urology meds : Tadalafil Blood Thinner : none Labs done : 12/22/24 PSA <0.10, Total Testosterone : 283 Coal Gasification Technician Required: No Accompanied by: Self / Same As Patient Allergies CRUSTACEANS Allergy (Intermediate, Uncoded 01/09/25 13:17) SWELLING/DIFF.BREATHING shrimp/crab/lobster Allergy (Unknown, Uncoded 01/09/25 13:17) facial swelling HPI Comments Details: Gautam is a pleasant male. He is a patient of Dr. Higuera. He seen for the following urologic conditions - elevated PSA - prostate cancer Telemedicine Evaluation 15 min Consultation [employer] Jose M Video PSA remains low PSA - 02/06 <0.1, 05/08 <0.1, 08/08 <0.1, 11/08 <0.1, 03/11 <0.1, 07/09 <0.1 T 278 borderline, 01/09 <0.1 283 Through weight loss his managed to get control of his blood sugars Congratulated him Continue with daily tadalafil Six-month follow-up Prostate cancer -grade group 5, high-volume 05/07 - RALP 09/[address] Enriquez 05/07 for PSA 7.1 with free PSA 18% Initial therapy robotic prostatectomy Dr Cowart [facility] 09/06 - genetics negative Clinical T1c, TRUS prostate size 35 g Histologic type: Adenocarcinoma, acinar type Manuela score: 9 (4+5) (left base lateral, left base medial, left mid lateral,left mid medial, left apex lateral, and left apex medial), 7 (3+4) (right base medial), 6 (3+3) (right base lateral) Tumor quantitation: Number cores positive: 8 Total number of cores: 15 - % of tissue involved: 44 % - 640/1600 Periprostatic fat inv.: Not identified Seminal vesicle inv.: Not identified Perineural inv.: Present Lymphovascular invasion: Not identified Staging - 06/07 PSMA PET-CT - isolated left side prostate activity - 06/07 MRI - multiple prostate lesions PiRADs 5 with apparent SHERRY to involve neurovascular bundles, no evidence for seminal vesicle involvement PFSH Medical History Colon cancer screening Elevated PSA Synovial cyst of popliteal space [Knight], right knee Spondylosis of cervical spine Syrinx of spinal cord BPH loc w urin obs/LUTS Interstitial cystitis BPH (benign prostatic hyperplasia) GERD (gastroesophageal reflux disease) Elevated cholesterol HTN (hypertension) Surgical History History of esophagogastroduodenoscopy (EGD) Hx of prostatectomy Hx of knee surgery History of nasal surgery H/O rotator cuff surgery Hx of cystoscopy Hx of colonoscopy Social History Patient Tobacco Use Status: Former Tobacco user Current occupational status: employed 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 Review of Systems Const All systems reviewed & are unremarkable except as noted in HPI and below Reports no additional complaints Resp Reports no additional complaints GI Reports no additional complaints Reports as per HPI Musc Reports no additional complaints Physical Exam Telemedicine evaluation Appropriate responses Regular breathing rate and rhythm HEENT Head: Yes normal to inspection Ears: hearing grossly normal bilaterally Eyes General: appearance normal, both eyes and all related structures Neck Neck: Yes normal visual inspection Chest Chest palpation & inspection: normal inspection of the chest Resp Effort & Inspection: normal respiratory effort and able to speak in complete sentences Telehealth Telehealth Telehealth Platform: [employer] Location of provider rendering services: practice address Location of patient: address on file Patient Identification confirmed using: Name, : Yes Telehealth method: video Patient verbally consented to treatment: Yes Patient verbally consented to billing insurance company: Yes Patient informed of any privacy concerns related to visit: Yes Minutes spent on Phone/Video with Pt.: 15 Assessment & Plan Assessment & Plan (1) Prostate cancer: Comment: 05/07 high-grade, high-volume Code(s): C61 - Malignant neoplasm of prostate Category: Medical (2) Erectile dysfunction associated with type 2 diabetes mellitus: Code(s): E11.69 - Type 2 diabetes mellitus with other specified complication; N52.1 - Erectile dysfunction due to diseases classified elsewhere Category: Medical Plan Six-month follow-up Orders: Orders Prostate Specific Antigen 6 Months E11.69 - Type 2 diabetes mellitus with other specified complication, N52.1 - Erectile dysfunction due to diseases classified elsewhere Medications: Refilled tadalafil (Cialis) 5 mg PO DAILY 90 tabs 1RF 90 days E11.69 - Type 2 diabetes mellitus with other specified complication, N52.1 - Erectile dysfunction due to diseases classified elsewhere Patient Instructions: This note is constructed using voice recognition software. While every effort has been made to ensure accuracy shower room attendant errors may have been included. Imaging studies, laboratory and physical exam results were discussed and reviewed in detail. No major barriers to patient understanding were identified. An opportunity to ask questions regarding the treatment plan was provided. All questions were answered. The patient expressed understanding and agreement with the above treatment plan. The patient is aware they should contact our office by phone for worsening of their current condition or the appearance of new urologic symptoms. Compliance is encouraged with any medications and followup testing that is ordered. It is a privilege to participate in the urologic care of your patient. If you have any questions or concerns regarding treatment for the above conditions, or other urologic issues, please do not hesitate to contact me. The office telephone contact is [phone]. Sincerely, Dr Mario Enriquez MD, [facility] - Urology Compassionate Specialist Care for the Genitourinary System Coding Level of Care Code Complex visit Add On G2211 Diagnoses Prostate cancer C61 Erectile dysfunction associated with type 2 diabetes mellitus E11.69; N52.1
--- OUTSIDE RECORDS SUMMARY | 2025-01-09 17:04 | XMS_ITS | Encounter Summary ---
Author Organization [facility] Address [address] [facility] [address] [place] [phone] Phone Care Team Providers Care Zinc Skimmer Name Role Phone Salvatore Osorio MD Primary Care Provider [phone] Encounter Details Date Type Department Care Team (Latest Contact Info) Description 01/22/2020 Transcribe Orders Virtual Department [address] [place] [id number] Salvatore Osorio MD [address] [place] [address] [email or web address] Exposure to SARS-associated coronavirus (Primary Dx) Social [...] Testing Status Specimen received in analyzing lab. [facility] Symptomatic? NO [facility] Other 01/24/2020 7:54 AM EST 01/24/2020 5:44 PM EST us Salvatore Osorio MD LAB GENERAL ORDERABLES Final Res ult [facility] [address] [place] [address] [facility] [address] [place] [phone] documented in this encounter Visit Diagnoses Diagnosis Exposure to SARS-associated coronavirus- Primary documented in this encounter Additional Health Concerns Infection Onset Date Last Indicated Resolved Time CoV-Exposed Comment:Recent close contact 01/22/2020 01/22/2020 02/05/2020 2:06 AM EST documented as of this encounter Care Teams Zinc Skimmer Relationship Specialty Start Date End Date Salvatore Osorio MD [email or web address] PCP - General Family Medicine 01/23/20 documented as of this encounter Additional Source Comments The information contained in this document represents components of the legal health record. It is not the complete legal health record.[facility]
--- OUTSIDE RECORDS SUMMARY | 2025-01-09 17:04 | XMS_ITS | Clinical Summary ---
Author Organization [facility] Address [address] [id number] Phone Care Team Providers Care Contract Accountant Name Role Phone Salvatore Osorio MD Primary Care Provider [phone] Social History Tobacco Use Types Packs/Day Years [...] file Medical Devices Not on file Insurance [facility] [place] [address] [place] [address] [place] [address] [place] [address] [place] [address] HMO O O O [facility] HMO Care Teams Contract Accountant Relationship Specialty Start Date End Date Salvatore Osorio MD [email or web address] PCP - General Family Medicine 01/23/20 Additional Source Comments The information contained in this document represents components of the legal health record. It is not the complete legal health record.[facility]
--- OUTSIDE RECORDS SUMMARY | 2025-01-09 17:04 | XMS_ITS | Clinical Summary ---
Author Organization [facility] Address [address] [place] [address] Care Team Providers Care Processing Clerk Name Role Phone Salvatore Osorio MD Primary Care Provider Mario Enriquez MD Unavailable [phone] Allergies Active Allergy Reactions Criticality Noted Date [...] No 09/09/2022 Housing Stability Vital Sign Answer Netfali e Recorded In the last 12 months, [...] place to sleep or slept in a halfway (including now)? No 09/09/2022 Sex and Gender [...] patient's age to complete this topic Insurance [facility] [place] [id number] Advance Directives * Full Code (Latest Code Status on File) Date Activated Date Inactivated Comments 09/08/2022 6:15 PM * Full Code Date Activated Date Inactivated Comments 09/08/2022 9:00 AM 09/08/2022 6:15 PM Care Teams Processing Clerk Relationship Specialty Start Date End Date Salvatore Osorio MD [address] [place] [address] PCP - General Family Medicine 07/15/22 Mario Enriquez MD [address] [address] [place] [address] Urology 09/10/22
--- OUTSIDE RECORDS SUMMARY | 2025-01-09 17:04 | XMS_ITS | Patient Health Record ---
Author Organization [facility] Logan dianna GilEstrada Address [address] [place] [address] Care Team Providers Care Tumbler Operator Name Role Phone Kim Higuera Primary Care Provider Ky Roca Unavailable [phone] Allergies Allergen (clinical drug ingredient) Drug/Non Drug Allergy documented on EMR Reaction Allergy Type Onset Date Status shrimp/shell fish (uncoded) Unknown Allergy Active Reason For Referral No Information Medications Medication SIG (Take, Route, Frequency, Duration) Notes Start Date End Date Status Vavkqhdcca-LAGA-Aowkvthl Active Elmiron Not-Taking Atorvastatin Calcium 40 MG [...] Problem Acquired hammer toe of right foot (2055133866345 105) Other hammer toe(s) (acquired), right foot (M20.41) Active confirmed Problem Acquired hammer toe of left foot (0347839371051 103) Other hammer toe(s) (acquired), left foot [...] X ray : Foot, right 3V 05/27/2023 47755, J0702- INJECT TENDON ORIGIN/INSER T 05/06/2017 89705, J0702- Neuroma/Injection 10/22/19 13 34708, J0702- Neuroma/Injection 01/07/20 13 Insurance Providers Payer Name Payer Address Payer Phone Subscriber Number Group Number Insured Name Patient Relationship to Insured Coverage Start Date Coverage End Date [facility] ([facility] [address] [place] [address] [id number] Gautam Sorto Self - patient is [...]
--- OUTSIDE RECORDS SUMMARY | 2025-01-09 17:04 | XMS_ITS | Patient Health Record ---
Author Organization [facility] Address [address] [place] [address] Care Team Providers Care Edge Cutting Machine Operator Name Role Phone Salvatore Osorio MD Primary Care Provider UnavailMayo Dupree [phone] Allergies Allergen (clinical drug ingredient) Drug/Non Drug Allergy documented on EMR Reaction Allergy Type Onset Date Status Lobster lobster (uncoded) Unknown Allergy Ac tive Shrimp Flavor Unknown Drug Allergy Act leobardo crab allergenic extract Crab (Diagnostic) Unknown Drug All ergy Active Reason For Referral No Information Medications Medication SIG (Take, Route, Frequency, Duration) Notes Start Date End Date Status Omeprazole 20 MG Capsule Delayed Release 1 capsule 30 minutes before morning meal Orally BID Active amLODIPine Besy-Benazepril HCl 2.5-10 MG Capsule as directed Orally Active Flomax 0.4 MG Capsule 1 capsule Orally O nce a day; Duration: 30 day(s) Active Lisinopril 5 MG Tablet 1 tablet Orally O nce a day; Duration: 30 day(s) Active Clobetasol Prop & Cleanser 0.05 % Kit as directed Externally 09/10/2021 Activ e Atorvastatin Calcium 40 MG Tablet 1 tablet Orally Once a day; Duration: 30 day(s) Active Atenolol 50 MG Tablet 1 tablet Orally On ce a day; Duration: 30 day(s) Active Hydrocortisone 2 MG Capsule Sprinkle as directed Orally 09/10/2021 Active Immunizations Vaccine Route Administration Date Status Comme nts Influenza Unknown 01/07/2021 Administered Social History Tobacco Use: Social History Observation Description Date Details (start date - stop date) Former Smoker NA - NA Social History Drugs/Alcohol: Social Info Question Answer Notes Alcohol Screen Did you have a drink containing alcohol in the past year? Yes How often did you have a drink containing alcohol in the past year? 4 or more times a week (4 points) How many drinks did you have on a typical day when you were drinking in the past year? 1 or 2 drinks (0 point) How often did you have 6 or more drinks on one occasion in the past year? 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 [address] [place] [phone] 05/08/[address] [facility] [address] [place] [phone] 05/22/2024 Mayo Roche Plan Of Treatment Future Test Test Name Order Date UPPER GI ENDOSCOPY 09/10/2021 Insurance Providers Payer Name Payer Address Payer Phone Subscriber Number Group Number Insured Name Patient Relationship to Insured Coverage Start Date Coverage End Date [facility] Insurance ([facility]) [address] [place] [address] [phone] [id number] EBONIE BAUTISTA Self - patient is [...]
== END 2025-01-09 13:35 | disposition home or self-care (01) ==
LOC: HO.HUSH 13:15
PROVIDERS: PCP Family Medicine; Visit Provider Urology
DX: C61 Malignant neoplasm of prostate (principal); E11.69 Type 2 diabetes mellitus with other specified complication; N52.1 Erectile dysfunction due to diseases classified elsewhere
CPT/HCPCS: 99214

== ENCOUNTER 2025-01-15 08:11 | Outpatient (REF) | payer OTHER, SELFPAY | END 2025-01-15 08:12 | disposition home or self-care (01) | LOC: HO.LAB 08:11 | PROVIDERS: Nurse Practitioner Family; PCP Family Medicine; Visit Provider Internal Medicine Gastroenterology | DX: Z11.0 Encounter for screening for intestinal infectious diseases (principal) | CPT/HCPCS: 83013 ==

== ENCOUNTER 2025-01-15 08:11 | Outpatient (AMB) | payer OTHER, SELFPAY ==
--- OUTSIDE RECORDS SUMMARY | 2025-01-15 08:23 | XMS_ITS | Encounter Summary ---
Author Organization [facility] Address [address] [place] [address] Phone Care Team Providers Care Materials Engineering Technician Name Role Phone Salvatore Osorio MD Primary Care Provider [phone] Encounter Details Date Type Department Care Team (Latest Contact Info) Description 01/22/2020 Transcribe Orders Virtual Department [address] [place] [address] Salvatore Osorio MD [address] [place] [address] [email or web address] Exposure to SARS-associated coronavirus (Primary Dx) Social [...] Testing Status Specimen received in analyzing lab. [facility] Symptomatic? NO [facility] Other 01/24/2020 7:54 AM EST 01/24/2020 5:44 PM EST us Salvatore Osorio MD LAB GENERAL ORDERABLES Final Res ult [facility] [address] [place] [address] [facility] [address] [place] [id number] documented in this encounter Visit Diagnoses Diagnosis Exposure to SARS-associated coronavirus- Primary documented in this encounter Additional Health Concerns Infection Onset Date Last Indicated Resolved Time CoV-Exposed Comment:Recent close contact 01/22/2020 01/22/2020 02/05/2020 2:06 AM EST documented as of this encounter Care Teams Materials Engineering Technician Relationship Specialty Start Date End Date Salvatore Osorio MD [email or web address] PCP - General Family Medicine 01/23/20 documented as of this encounter Additional Source Comments The information contained in this document represents components of the legal health record. It is not the complete legal health record.[facility]
--- OUTSIDE RECORDS SUMMARY | 2025-01-15 08:23 | XMS_ITS | Patient Health Record ---
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; no sig alcohol Problems Problem Type SNOMED Code ICD Code Onset Dates Problem Status W/U Status Risk Notes Problem Esophageal reflux (189674505) Esophageal reflux (K21.9) Active confirmed Problem Gastro-esophagea l reflux disease without esophagitis (368250967) Gastro-esophage al reflux disease without esophagitis (K21.9) Active confirmed Encounters Encounter Location Date Provider Diagnosis [facility] [address] [place] [phone] 05/08/2024 Mayo Roche [facility] [address] [place] [phone] 05/22/2024 Mayo Roche Plan Of Treatment Future Test Test Name Order Date UPPER GI ENDOSCOPY 09/10/2021 Insurance Providers Payer Name Payer Address Payer Phone Subscriber Number Group Number Insured Name Patient Relationship to Insured Coverage Start Date Coverage End Date [facility] Insurance ([facility]) [address] [place] [address] [id number] EBONIE BAUTISTA Self - patient is the insured Medical (General) History Medical History History ICD Code HTN Neck pain-s/p injections Neg. colonoscopy at age 49 [address] Gerardo acosta--told to repeat at age 59 Hyperlipidemia GERD BPH Denies [place],DM,CVA,Lung disease,renal dise ase Cytoscopies-interstitial cystitis Surgical History Surgery Date(Month/Year) Left and right rotator cuff Nose-deviated septum Left and right knee
--- OUTSIDE RECORDS SUMMARY | 2025-01-15 08:23 | XMS_ITS | Patient Health Record ---
Author Organization [facility] dianna GilEstrada Address [address] [place] [address] Care Team Providers Care Carpet Jack Name Role Phone Kim Higuera Primary Care Provider Ky Roca Unavailable [phone] Allergies Allergen (clinical drug ingredient) Drug/Non Drug Allergy documented on EMR Reaction Allergy Type Onset Date Status shrimp/shell fish (uncoded) Unknown Allergy Active Reason For Referral No Information Medications Medication SIG (Take, Route, Frequency, Duration) Notes Start Date End Date Status Ktkxjvwjsj-TPUJ-Nouiqzmm Active Elmiron Not-Taking Atorvastatin Calcium 40 MG [...] Problem Acquired hammer toe of right foot (3794434727331 105) Other hammer toe(s) (acquired), right foot (M20.41) Active confirmed Problem Acquired hammer toe of left foot (5364372542116 103) Other hammer toe(s) (acquired), left foot [...] X ray : Foot, right 3V 05/27/2023 26238, J0702- INJECT TENDON ORIGIN/INSER T 05/06/2017 83044, J0702- Neuroma/Injection 10/22/19 13 71859, J0702- Neuroma/Injection 01/07/20 13 Insurance Providers Payer Name Payer Address Payer Phone Subscriber Number Group Number Insured Name Patient Relationship to Insured Coverage Start Date Coverage End Date [facility] ([facility]) [address] [place] [address] [id number] Gautam Sorto Self - patient is [...]
--- OUTSIDE RECORDS SUMMARY | 2025-01-15 08:23 | XMS_ITS | Clinical Summary ---
Author Organization [facility] Address [address] [phone] Phone Care Team Providers Care Physical Science Technician Name Role Phone Salvatore Osorio MD Primary Care Provider [phone] Social History Tobacco Use Types Packs/Day Years [...] Devices Not on file Insurance [facility] [place] [address] [place] [address] [place] [address] [place] [address] [place] [place] [address] [place] [address] HMO O O O [facility] HMO Care Teams Physical Science Technician Relationship Specialty Start Date End Date Salvatore Osorio MD [email or web address] PCP - General Family Medicine 01/23/20 Additional Source Comments The information contained in this document represents components of the legal health record. It is not the complete legal health record.[facility]
--- OUTSIDE RECORDS SUMMARY | 2025-01-15 08:23 | XMS_ITS | Clinical Summary ---
Author Organization [facility] Address [address] [place] [address] Care Team Providers Care Family Day Care Provider Name Role Phone Salvatore Osorio MD Primary Care Provider Mario Enriquez MD Unavailable [phone] Allergies Active Allergy Reactions Criticality Noted Date [...] place to sleep or slept in a fci (including now)? No 09/09/2022 Sex and Gender [...] patient's age to complete this topic [facility] [place] [id number] Advance Directives * Full Code (Latest Code Status on File) Date Activated Date Inactivated Comments 09/08/2022 6:15 PM * Full Code Date Activated Date Inactivated Comments 09/08/2022 9:00 AM 09/08/2022 6:15 PM Care Teams Family Day Care Provider Relationship Specialty Start Date End Date Salvatore Osorio MD [address] [place] [address] PCP - General Family Medicine 07/15/22 Mario Enriquez MD [address] [address] [place] [address] Urology 09/10/22
--- NOTE | 2025-01-15 08:41 | AM.OFFVISNUR ---
Intake Visit Reasons: H Pylori Breath Test, HOLD PPI Allergies CRUSTACEANS Allergy (Intermediate, Uncoded 01/09/25 13:17) SWELLING/DIFF.BREATHING shrimp/crab/lobster Allergy (Unknown, Uncoded 01/09/25 13:17) facial swelling Nursing Note Patient presents for collection of?H Pylori?breath test. Patient has been fasting for 1 hour (nothing to eat, drink, no chewing gum or smoking) has not taken any antacid medication for at least 2 weeks and has no allergies to artificial sweeteners.?? <del>?</del> <del>?</del> <del>??</del> Assessment & Plan Assessment & Plan (1) GERD (gastroesophageal reflux disease): Code(s): K21.9 - Gastro-esophageal reflux disease without esophagitis Category: Medical (2) Colon cancer screening: Code(s): Z12.11 - Encounter for screening for malignant neoplasm of colon Category: Medical Plan Patient presents for collection of?H Pylori?breath test. Patient has been fasting for 1 hour (nothing to eat, drink, no chewing gum or smoking) has not taken any antacid medication for at least 2 weeks and has no allergies to artificial sweeteners.???This test checks for an overgrowth of bacteria in your stomach. We all have bacteria but some may have more than others. It is treatable. if the test comes back negative there is nothing else to do. If the test result is positive we will treat you with 2 antibiotics and a medication to decrease the acid in your stomach (PPI) for 2 weeks. Two weeks after you have completed the treatment we will retest you to make sure the overgrowth has resolved. Patient Instructions: Process for specimen collection and reason for testing was explained to the patient. Specimen collection. Patient instructed to take a deep breath and then exhale into the blue bag, filling it up as much as possible. Patient instructed to drink a mixture of water and the artificial sweetener with a straw. A 15 minute wait period was observed. Patient instructed to take a deep breath and then exhale into the pink bag, filling it up as much as possible.?? Coding Level of Care Code Established Pt Est Pt Level 1 (18355) Patient Type Established Diagnoses GERD (gastroesophageal reflux disease) K21.9 Colon cancer screening Z12.11
== END 2025-01-15 09:06 | disposition home or self-care (01) ==
LOC: HO.HGI 08:12
PROVIDERS: PCP Family Medicine; Visit Provider Internal Medicine Gastroenterology
DX: K21.9 Gastro-esophageal reflux disease without esophagitis (principal); Z12.11 Encounter for screening for malignant neoplasm of colon

== ENCOUNTER → 2025-02-12 12:46 | Outpatient (BNVA) | payer OTHER, SELFPAY | PROVIDERS: Visit Provider Emergency Medicine | DX: S29.012A Strain of muscle and tendon of back wall of thorax, initial encounter (principal); X50.3XXA Overexertion from repetitive movements, initial encounter | CPT/HCPCS: 72072; 99203 ==